=== PATIENT | male | born 1960 | race Asian ===

== ENCOUNTER 2017-07-11 19:04 | Inpatient (IN) | payer MEDICAID ==
--- NOTE | 2017-07-11 19:40 | ED Physician Chart ---
ED Chief Complaint/HPI - Patient Information Date Seen:: 07/11/17 Time Seen:: 19:35 Chief Complaint:: Pneumonia, leukocytosis History of Present Illness:: 56 yo male who was on ventilator via tracheostomy. He was a SNF resident. A CXR at [facility] showed bilateral infiltrate. Elevated WBC 19.5 indicated likely pneumonia. The patient was brought from [facility] to ER for further evaluation. He was awake, alert, and following commands. Allergies:: Allergies Allergy/AdvReac Type Severity Reaction Status Date / Time No Known Allergies Allergy Verified 07/11/17 19:32 Vitals:: Vital Signs - 8 hr 07/11/17 19:18 HR 117 O2 Sat % 97 ED Review of Systems - Review of Systems General/Constitutional: Fever, Weakness, Other (bed) Skin: No skin lesions Head: No headache Eyes: No pain ENT: No earache Neck: No neck pain Cardio Vascular: No chest pain Pulmonary: SOB GI: No nausea, No vomiting Musculoskeletal: Bone or joint pain ED Past Medical History - Past Medical History Past Medical History: PUD/GERD, Other (respiratory failure, cirrhosis, anemia, dysphagia, atrial fibrillation) Social History: Non Smoker, No Alcohol, No Drug Use Surgical History: PEG/GTube Family Medical History - Family Member Mother History Unknown: Yes ED Physical Exam - Physical Examination General/Constitutional: Awake, Alert Other Gen/Cons comments:: Follow commands Head: Atraumatic Eyes: PERRL Skin: No ecchymosis ENMT: External ears, nose nl Neck: Nontender Other Neck comments:: Tracheostomy intact Other Respiratory comments:: G/L rhonchi Cardio Vascular: RRR, No murmur, gallop, rubs GI: No tenderness/rebounding/guarding Extremities: No edema Neuro/Psych: Alert/oriented ED Labs/Radiology/EKG Results - Radiology Results Results: CXR: b/l lung multiple infiltrates ED Assessment - Assessment General Assessment: Pneumonia Leukocytosis Tracheostomy on ventilation Anemia Metabolic alkalosis, posthypercapnia Assessment/Comments:: CBC, CMP, ABG CXR, EKG Zosyn Ventilation rate increase Admit to ICU ED Septic Shock - . Is Septic Shock (SBP<90, OR Lactate>4 mmol\L) present?: No - <6hrs of presentation: Vital Signs: Vital Signs - 8 hr 03/11/18 19:18 HR 117 O2 Sat % 97 ED Reassessment (Disposition) - Reassessment Reassessment Condition:: Improved - Patient Disposition Discharge/Transfer:: Acute Care w/in this hosp Admitting Medical Physician:: Kimberly Chaudhry
[2017-07-11 19:55] LABS: BASOPHILE ABSOLUTE 0.2 Th/cumm (0-0.2); EOSINOPHILE ABSOLUTE 2.6 Th/cmm (0.1-0.4); HEMATOCRIT 30.5 % (41.0-60); HEMOGLOBIN 10.3 gm/dL (12-16); LYMPHOCYTE ABSOLUTE 1.2 Th/cmm (1.5-3.0); MANUAL DIFF REQUIRED? YES; MEAN CELL VOLUME 93.3 fl (80-99); MEAN CORPUSCULAR HEMOGLOBIN 31.5 pg (26.0-30.0); MEAN CORPUSCULAR HGB CONC 33.8 pg (28.0-36.0); MONOCYTE ABSOLUTE 0.7 Th/cmm (0.3-1.0); NEUTROPHILE ABSOLUTE 17.9 Th/cmm (1.8-8.0); PLATELET COUNT 237 Th/cmm (150-400); RED BLOOD COUNT 3.27 Mil/cmm (4.30-5.70); RED CELL DISTRIBUTION WIDTH 22.4 % (11.5-20.0)
[2017-07-11 20:16] LABS: ALB/GLOB RATIO 0.4 (1.0-1.8); ALBUMIN 2.2 gm/dL (4.2-5.5); ALKALINE PHOSPHATASE 171 U/L (34-104); ANION GAP 4.4 (7.0-16.0); BILIRUBIN,TOTAL 0.9 mg/dL (0.3-1.0); BUN - UREA NITROGEN 15 mg/dL (7-25); CALCIUM SERUM 9.5 mg/dL (8.6-10.3); CHLORIDE 98 mEq/L (98-107); CREATININE - SERUM 0.5 mg/dL (0.7-1.3); GFR AFRICAN-AMERICAN > 60.0 ml/min (>90); GFR NON AFRICAN-AMERICAN > 60.0 ml/min; GLUCOSE 98 mg/dL (70-105); POTASSIUM SERUM 4.4 mEq/L (3.5-5.1); SGOT 45 U/L (13-39); SGPT/ALT 20 U/L (7-52); SODIUM SERUM 130 mEq/L (136-145); TOTAL PROTEIN,SERUM 8.4 gm/dL (6.0-8.3); WHITE BLOOD COUNT 22.6 Th/cmm (4.8-10.8)
[2017-07-11 21:05] LABS: ALLEN TEST positive
[2017-07-11 21:29] LABS: BAND NEUTROPHILE 6 % (0-10); BASOPHIL 0 % (0-3); EOSINOPHIL 12 % (0-5); LYMPHOCYTE 5 % (20-50); MONOCYTE 3 % (2-10); NEUTROPHILS 74 % (40-80); PLATELET ESTIMATE ADEQUATE (NORMAL); PLATELET MORPHOLOGY NORMAL (NORMAL); TOTAL CELLS COUNTED 100
[2017-07-11 21:30] LABS: ANISOCYTOSIS 1+
[2017-07-11] MEDS ORDERED: Piperacillin Sodium/Tazobact 3.375 gm Vial IV ONE (21:34)
[2017-07-12] MEDS ORDERED: Piperacillin Sodium/Tazobact 3.375 gm Vial IV ONE ×2 (04:57→13:53)
[2017-07-12 05:26] LABS: ALB/GLOB RATIO 0.4 (1.0-1.8); ALBUMIN 2.2 gm/dL (4.2-5.5); ALKALINE PHOSPHATASE 163 U/L (34-104); ANION GAP 7.5 (7.0-16.0); BILIRUBIN,TOTAL 1.1 mg/dL (0.3-1.0); BUN - UREA NITROGEN 17 mg/dL (7-25); CALCIUM SERUM 9.8 mg/dL (8.6-10.3); CARBON DIOXIDE 30.8 mEq/L (21.0-31.0); CHLORIDE 96 mEq/L (98-107); CREATININE - SERUM 0.6 mg/dL (0.7-1.3); GFR AFRICAN-AMERICAN > 60.0 ml/min (>90); GFR NON AFRICAN-AMERICAN > 60.0 ml/min; GLUCOSE 90 mg/dL (70-105); POTASSIUM SERUM 4.3 mEq/L (3.5-5.1); SGOT 45 U/L (13-39); SGPT/ALT 19 U/L (7-52); SODIUM SERUM 130 mEq/L (136-145); TOTAL PROTEIN,SERUM 8.3 gm/dL (6.0-8.3)
[2017-07-12 06:12] LABS: pH 7.46 (7.35-7.45)
[2017-07-12 06:13] LABS: ALLEN TEST Positive; pH 7.45 (7.35-7.45)
--- NOTE | 2017-07-12 08:30 | Diagnostic Imaging Report ---
CHEST X-RAY: AP view INDICATION: Cough COMPARISON: None FINDINGS: Tracheostomy tube is noted. Congestive changes and bilateral interstitial infiltrates are seen with small effusions. Mild cardiomegaly is noted. Degenerative changes spine are noted. Postsurgical changes of the left upper quadrant are noted with gastrostomy tube also noted. IMPRESSION: Congestive change and interstitial infiltrates and small effusions. Mild cardiomegaly.
[2017-07-12 08:38] LABS: % BASOPHILS 0.1 % (0.0-2.0); % EOSINOPHILS 5.7 % (0.0-5.0); % MONOCYTES 5.1 % (2.0-10.0); % NEUTROPHILS 80.1 % (40.0-80.0); EOSINOPHILE ABSOLUTE 1.1 Th/cmm (0.1-0.4); HEMATOCRIT 28.9 % (41.0-60); HEMOGLOBIN 9.9 gm/dL (12-16); LYMPHOCYTE ABSOLUTE 1.7 Th/cmm (1.5-3.0); MEAN CELL VOLUME 95.7 fl (80-99); MEAN CORPUSCULAR HEMOGLOBIN 32.8 pg (26.0-30.0); MEAN CORPUSCULAR HGB CONC 34.3 pg (28.0-36.0); MEAN PLATELET VOLUME 9.2 fl; NEUTROPHILE ABSOLUTE 14.9 Th/cmm (1.8-8.0); RED BLOOD COUNT 3.02 Mil/cmm (4.30-5.70); RED CELL DISTRIBUTION WIDTH 22.4 % (11.5-20.0)
[2017-07-12 08:39] LABS: PLATELET COUNT 140 Th/cmm (150-400); WHITE BLOOD COUNT 18.7 Th/cmm (4.8-10.8)
[2017-07-12] MEDS ORDERED: VANCOMYCIN IV SCH (13:44)
[2017-07-12] MEDS ORDERED: SOD CHLORIDE IV SCH (13:44)
[2017-07-12] MEDS ORDERED: [UNRECOGNIZED DRUG - OTHER] IV SCH (13:44)
[2017-07-12] MEDS ORDERED: Non-Formulary Item 1 EA (Amino Acids/Protein Hydrolys [Pro-Stat Sugar Free Liquid] 30 ML) GT SCH (13:44)
[2017-07-12] MEDS ORDERED: DARBEPOETIN ALFA IN POLYSORBAT SQ SCH (13:44)
[2017-07-12] MEDS ORDERED: Non-Formulary Item 1 EA (Levalbuterol Hcl [Xopenex] 0.63 MG) IH SCH (13:44)
[2017-07-12 15:15] VITALS: BP 105/63
--- NOTE | 2017-07-12 15:22 | Infectious Disease Prog Note ---
Infectious Disease Subjective - Review of Systems Service Date: 07/12/17 Subjective: Patient is brought to the ICU for worsening pneumonia. Infectious Disease Objective - Results Result Diagrams: 07/12/17 04:20 07/12/17 04:20 Recent Labs: Laboratory Last Values WBC 18.7 Th/cmm (4.8-10.8) H 07/12/17 04:20 RBC 3.02 Mil/cmm (4.30-5.70) L 07/12/17 04:20 Hgb 9.9 gm/dL (12-16) L 07/12/17 04:20 Hct 28.9 % (41.0-60) L 07/12/17 04:20 MCV 95.7 fl (80-99) 07/12/17 04:20 MCH 32.8 pg (26.0-30.0) H 07/12/17 04:20 MCHC Differential 34.3 pg (28.0-36.0) 07/12/17 04:20 RDW 22.4 % (11.5-20.0) H 07/12/17 04:20 Plt Count 140 Th/cmm (150-400) L D 07/12/17 04:20 MPV 9.2 fl 07/12/17 04:20 Neutrophils % 80.1 % (40.0-80.0) H 07/12/17 04:20 Band Neutrophils % 6 % (0-10) 07/11/17 19:46 Lymphocytes % 9.0 % (20.0-50.0) L 07/12/17 04:20 Monocytes % 5.1 % (2.0-10.0) 07/12/17 04:20 Eosinophils % 5.7 % (0.0-5.0) H 07/12/17 04:20 Basophils % 0.1 % (0.0-2.0) 07/12/17 04:20 Neutrophils (Manual) 74 % (40-80) 07/11/17 19:46 Lymphocytes 5 % (20-50) L 07/11/17 19:46 Monocytes 3 % (2-10) 07/11/17 19:46 Eosinophils 12 % (0-5) H 07/11/17 19:46 Basophils 0 % (0-3) 07/11/17 19:46 Platelet Estimate ADEQUATE (NORMAL) 07/11/17 19:46 Platelet Morphology NORMAL (NORMAL) 07/11/17 19:46 Anisocytosis 1+ 07/11/17 19:46 RBC Morph Micro Appear ABNORMAL (NORMAL) 07/11/17 19:46 Specimen Source ARTERIAL 07/12/17 06:00 Sample Site Right Radial 07/12/17 06:00 pH 7.45 (7.35-7.45) 07/12/17 06:00 pCO2 50.0 mmHg (35.0-45.0) H 07/12/17 06:00 pO2 100.0 mmHg (80.0-100.0) 07/12/17 06:00 HCO3 32.2 mEq/L (20.0-26.0) H 07/12/17 06:00 Base Excess 9.3 mEq/L (-3.0-3.0) H 07/12/17 06:00 O2 Saturation 98.0 % (92.0-100.0) 07/12/17 06:00 Jose Test Positive 07/12/17 06:00 Vent Rate 24 07/12/17 06:00 Inspired O2 40 07/12/17 06:00 Tidal Volume NA 07/12/17 06:00 PEEP 5 07/12/17 06:00 Pressure (ins/psv/peep) 25 07/12/17 06:00 Critical Value SC 07/12/17 06:00 Sodium 130 mEq/L (136-145) L 07/12/17 04:20 Potassium 4.3 mEq/L (3.5-5.1) 07/12/17 04:20 Chloride 96 mEq/L (98-107) L 07/12/17 04:20 Carbon Dioxide 30.8 mEq/L (21.0-31.0) 07/12/17 04:20 Anion Gap 7.5 (7.0-16.0) 07/12/17 04:20 BUN 17 mg/dL (7-25) 07/12/17 04:20 Creatinine 0.6 mg/dL (0.7-1.3) L 07/12/17 04:20 Est GFR ( Amer) > 60.0 ml/min (>90) 07/12/17 04:20 Est GFR (Non-Af Amer) > 60.0 ml/min 07/12/17 04:20 BUN/Creatinine Ratio 28.3 07/12/17 04:20 Glucose 90 mg/dL (70-105) 07/12/17 04:20 Whole Bld Lactic Acid 1.00 mmol/L (0.60-1.99) 07/12/17 09:10 Calcium 9.8 mg/dL (8.6-10.3) 07/12/17 04:20 Total Bilirubin 1.1 mg/dL (0.3-1.0) H 07/12/17 04:20 AST 45 U/L (13-39) H 07/12/17 04:20 ALT 19 U/L (7-52) 07/12/17 04:20 Alkaline Phosphatase 163 U/L (34-104) H 07/12/17 04:20 Total Protein 8.3 gm/dL (6.0-8.3) 07/12/17 04:20 Albumin 2.2 gm/dL (4.2-5.5) L 07/12/17 04:20 Globulin 6.1 gm/dL 07/12/17 04:20 Albumin/Globulin Ratio 0.4 (1.0-1.8) L 07/12/17 04:20 - Physical Exam Vitals and I&O: Vital Signs Temp 98.9 F 07/12/17 13:00 Pulse 85 07/12/17 14:02 Resp 22 07/12/17 14:02 BP 105/63 07/12/17 15:15 Pulse Ox 100 07/12/17 13:10 Intake & Output 07/11/17 07/12/17 07/12/17 18:59 06:59 18:59 Intake Total 50 Balance 50 Intake: Intake, IV Amount 50 Piperacillin Sodium/ 50 Tazobact 3.375 gm In Sodium Chloride 0.9% 50 ml @ 100 mls/hr IV Q8H [facility] Rx#:[id number] Active Medications: Current Medications Acetaminophen (Tylenol 650mg/20.3ml Suspension) 640 mg GT Q4H PRN PRN Reason: Pain or Fever >101 Stop: 09/10/17 13:43 Artificial Tears (Artificial Tears Ophth Soln) 1 drop EACH EYE Q4HR MANDA Stop: 09/10/17 15:59 Ascorbic Acid (Vitamin C) 500 mg GT DAILY MANDA Stop: 09/10/17 14:59 Chlorhexidine Gluconate (Peridex) 15 ml MM 0800,2000 MANDA Stop: 09/10/17 19:59 Digoxin (Lanoxin) 0.125 mg GT MWF MANDA Stop: 09/10/17 14:59 Folic Acid (Folate) 1 mg GT DAILY MANDA Stop: 09/10/17 14:59 Piperacillin Sod/Tazobactam (Sod 3.375 gm/ Sodium Chloride) 50 mls @ 100 mls/ hr IV Q8H MANDA Stop: 09/10/17 15:59 Vancomycin HCl 0.75 gm/ Sodium (Chloride) 250 mls @ 165 mls/hr IV Q12H MANDA Stop: 09/10/17 16:59 Lorazepam (Ativan) 0.5 mg GT Q4H PRN; Protocol PRN Reason: Anxiety Stop: 09/10/17 13:43 Metoclopramide HCl (Reglan) 5 mg GT DAILY MANDA Stop: 09/10/17 14:59 Miscellaneous (Vancomycin Iv Per Pharmacy) 1 ea PRN PRN PRN Reason: PROTOCOL Stop: 09/09/17 22:02 Miscellaneous (Amino Acids/Protein Hydrolys [Pro-Stat Sugar Free Liquid]) 30 ml GT BID MANDA Stop: 09/10/17 13:43 Miscellaneous (Darbepoetin Arsenio In Polysorbat [Aranesp]) 0.04 mg SQ QFRI MANDA Stop: 09/10/17 13:43 Miscellaneous (Levalbuterol Hcl [Xopenex]) 0.63 mg IH Q6HR MANDA Stop: 09/10/17 13:43 Morphine Sulfate (Morphine) 15 mg GT TID MANDA Stop: 09/10/17 13:59 Multivitamins/Vitamin C (Theragran) 1 tab GT DAILY MANDA Stop: 09/10/17 14:59 Ondansetron HCl (Zofran Odt) 4 mg SL Q6H PRN PRN Reason: Nausea Stop: 09/10/17 13:43 Pantoprazole Sodium (Protonix) 30 mg GT BIDAC MANDA Stop: 09/10/17 16:29 Senna (Senna) 8.6 mg GT HS MANDA Stop: 09/10/17 20:59 Thiamine HCl (Vitamin B1) 100 mg GT DAILY MANDA Stop: 09/10/17 14:59 Zinc Sulfate (Zinc Sulfate) 220 mg GT DAILY MANDA Stop: 09/10/17 14:59 General: no acute distress, cachectic HEENT: atraumatic, normocephalic, PERRLA, EOMI Neck: supple, no thyromegaly Cardiovascular: S1S2, regular Lungs: clear to percussion, rhonchi Abdomen: soft, no tender, no distended Extremities: no cyanosis, no clubbing, no edema Neurological: awake, alert, oriented Skin: no other (sacral dry wound no erythema stage 2. left leg wound) Infectious Disease Assmt/Plan - Assessment Assessment: Impression: 1. Diarrhea. 2. Pneumonia. 3. Leukocytosis. 4. Cirrhosis. 5. Afib, currently NSR. 6. h/o alcohol abuse. 7. Protein calorie malnutrition. 8. decubitus, sacral. There is no sign of infection,. 9. left leg decubitus ulcer. - Plan Plan: Will continue vanco IV and Zosyn. Check stool for C diff. Blood cs. Sputum cs. UA urine cs.
[2017-07-12] MEDS: Polyvinyl Alcohol Ophth Soln 15 mL Bottle EACH EYE SCH ×2 (16:00→22:50)
[2017-07-12] MEDS ORDERED: Pantoprazole 40 mg/Packet GT SCH (16:30)
[2017-07-12] MEDS: Morphine 10 mg/5 ml 5mL UDC GT SCH ×2 (18:13→21:14)
[2017-07-12] MEDS: Multivitamin Tab GT SCH (18:15)
[2017-07-12] MEDS ORDERED: VTE Chemical Prophylaxis Screen/Admission MC PRN (19:01)
[2017-07-12] MEDS: Chlorhexidine Gluconate 0.12% 15mL Mouthwash MM SCH (19:50)
--- NOTE | 2017-07-13 00:21 | Consultation ---
DATE OF CONSULTATION: 07/12/2017 INFECTIOUS DISEASE CONSULTATION REFERRING PHYSICIAN: Qamar Chaudhry MD. REASON FOR CONSULTATION: Leukocytosis and pneumonia. HISTORY OF PRESENT ILLNESS: The patient is a 56-year-old male with a past medical history of ventilator dependence, status post tracheostomy, status post PEG was admitted to [facility]. Afterwards, the patient was on ventilator, requiring continued care and IV antibiotic. So, the patient was transferred to [facility]. The patient had a prolonged stay at [facility] again. However, he was stabilized and transferred to [facility] on 07/01/2017. He was receiving levofloxacin. At the facility, the patient's WBC count is 90,500 with chest x-ray showed bilateral infiltrate with possibility of pneumonia. So, the patient was transferred to [facility] for further care. On initial evaluation, the patient's temperature was 99.8 degree Fahrenheit, which went up to 100.5 degrees Fahrenheit. The patient's blood pressure was also fluctuating and it went down to 96/70 today. Infectious Disease consultation was called for further antibiotic management. Meanwhile, the patient is receiving vancomycin and Zosyn. The patient also developed watery diarrhea. PAST MEDICAL HISTORY: Includes as mentioned above, alcohol abuse, cirrhosis, anemia, dysphagia, G-tube placement, atrial fibrillation, currently in normal sinus rhythm; respiratory failure, on ventilator; liver cirrhosis and pneumonias. The patient also harboring multidrug resistant organisms, which were treated at [facility]. ALLERGIES: NKDA. MEDICATIONS: As per medication reconciliation sheet. The patient was receiving Levaquin at [facility]. Levaquin was changed to vancomycin and Zosyn. FAMILY HISTORY: Noncontributory. SOCIAL HISTORY: The patient had a prolonged stay in the hospital and bedridden at this time. He has no history of smoking; although, the patient has history of chronic alcohol abuse. REVIEW OF SYSTEMS: GENERAL: The patient has low-grade fevers. The patient is on a ventilator. No chills. The patient has generalized weakness. HEENT: The patient denies any diplopia, photophobia, or sore throat. RESPIRATORY: The patient has been on ventilator for a long time. CARDIOVASCULAR: The patient has no chest pain and no palpitation. GASTROINTESTINAL: The patient has no nausea and no vomiting. The patient has watery diarrhea. No constipation. No abdominal pain. GENITOURINARY: Incontinence. CENTRAL NERVOUS SYSTEM: No headache, no dizziness, and no focal weakness. PHYSICAL EXAMINATION: GENERAL: The patient is very cachectic, not in acute distress. VITAL SIGNS: Shows temperature is 98.2, T-max 100.5 degrees Fahrenheit, pulse 98, respirations 28, and blood pressure 105/63. GENERAL: The patient is comfortable, lying in bed, not in acute distress. HEENT: Head is normocephalic and atraumatic. The patient has ____. Oral cavity: Moist and pink tongue. Eyes: No pressure pallor, no icterus. Pupils: PERRLA, EOMI. NECK: Trach site is clear. The patient has significant amount of endotracheal secretion present. CHEST: Bilateral breath sounds. Occasional rhonchi present. HEART: S1, S2 within normal limits. Regular rhythm. No murmur or gallop. ABDOMEN: Soft, nontender, and nondistended. Bowel sounds present. The patient has G-tube in epigastric area. EXTREMITIES: No cyanosis, no clubbing, and no edema. NEUROLOGICAL: Alert, awake, and follows the command. SKIN: The patient has a stage 2 sacral decubitus ulcer in coccyx area, small without any surrounding erythema, discharge, or induration. The patient also has small wound dry in left leg posteriorly. LABORATORY DATA: Current lab shows WBC count is 18,700, hemoglobin 9.9, hematocrit 28.8, platelets are 140,000, and neutrophils 80%. Sodium is 130, potassium 4.3, chloride 96, bicarbonate is 31, BUN is 17, creatinine 0.6, and glucose is 90. Lactic acid was 1. DIAGNOSTIC DATA: Chest x-ray shows congestive changes, interstitial infiltrate, small effusion, and mild cardiomegaly. IMPRESSION: 1. Leukocytosis. 2. Pneumonia. 3. Diarrhea without Clostridium difficile colitis. 4. Cirrhosis. 5. Atrial fibrillation, currently in normal sinus rhythm. Receiving Digoxin. 6. History of alcohol abuse. 7. Protein-calorie malnutrition. 8. Sacral decubitus ulcer with no sign of infection. 9. The left leg decubitus ulcer without sign of any infection. RECOMMENDATION AND PLAN: We will continue vancomycin and Zosyn. Check stool for C. diff. Check blood cultures, sputum culture, urinalysis, and urine culture. Thank you, Dr. Chaudhry, for involving me in taking care of this patient. JOB# [id number]
[2017-07-13] MEDS: Albuterol Nebulizer 2.5mg/3mL HHN SCH ×4 (01:09→18:48)
[2017-07-13] MEDS: Ipratropium Neb 0.5 mg/2.5 mL UD HHN SCH ×4 (01:09→18:48)
[2017-07-13] MEDS: Polyvinyl Alcohol Ophth Soln 15 mL Bottle EACH EYE SCH ×5 (01:22→16:09)
[2017-07-13] MEDS: Pantoprazole 40 mg/Packet GT SCH ×2 (07:30→16:24)
--- NOTE | 2017-07-13 07:51 | Consultation ---
DATE OF CONSULTATION: 07/12/2017 REFERRING PHYSICIAN: Dr. Chaudhry. Thank you very much for this consultation. HISTORY OF PRESENT ILLNESS: This is a 56-year-old male known to me from his admission in [facility], history of liver cirrhosis, respiratory failure, history of pneumonia, effusion, chest tube on the right side. The patient presented with congestion and fever, was admitted for further treatment and management. The patient seems to have some significant amount of secretions and fever of 100.5. The patient is awake, alert, has been on multiple medications and treated with multiple antibiotics, sepsis before. PAST MEDICAL HISTORY: As above. SOCIAL HISTORY: Available. PHYSICAL EXAMINATION: GENERAL: Awake, not in acute distress, agitated. VITAL SIGNS: T-max 100.4, temperature 99.4, pulse 108, respirations 26-30, blood pressure is 160/68, saturation 99%. HEENT: Atraumatic, normocephalic. Pupils react to light and accommodation. Ears, nose and throat are normal. NECK: Supple. No JVD. CHEST: There is rhonchi bilaterally, no wheezing. HEART: Regular rate and rhythm. ABDOMEN: Soft. EXTREMITIES: No edema. LABORATORY DATA: WBC is 18.7, hemoglobin 9.9, hematocrit 28.9, platelets 140. ABGs: pH 7.45, pCO2 of 50, pO2 100, bicarbonate 32, saturation 98%. Sodium 138, potassium 4.3, BUN 17, creatinine 0.6. Chest x-ray, bibasilar infiltrate suggestive there is a tube in place. IMPRESSION: 1. Respiratory failure. 2. Pneumonia. 3. Weakness. 4. Sepsis. 5. Liver cirrhosis. PLAN: 1. Ventilator support. 2. Nebulized treatment. 3. Pulmonary toilet. 4. Follow up serum cultures and nebulizer treatment. Thank you very much for this consultation. We will follow the patient with you. PSYCHIATRIC# [id number]
[2017-07-13] MEDS: Chlorhexidine Gluconate 0.12% 15mL Mouthwash MM SCH ×2 (08:00→20:45)
[2017-07-13] MEDS: Morphine 10 mg/5 ml 5mL UDC GT SCH ×3 (09:15→20:57)
[2017-07-13] MEDS: Multivitamin Tab GT SCH (09:50)
[2017-07-13] MEDS: D5-0.45NS 1,000 ML IV SCH (14:30)
[2017-07-13] MEDS ORDERED: Influenza Vaccine 0.5 mL Syr IM ONE (16:00)
[2017-07-13] MEDS ORDERED: Pneumococcal Vaccine 0.5 mL Vial IM ONE (16:00)
--- NOTE | 2017-07-13 16:12 | History and Physical ---
History of Present Illness - HPI Chief Complaint: PNEUMONIA, LEUKOCYTOSIS HPI: This is a 56 year old male who is a retirement resident who had a recent chest xray shows bilateral infiltrates and patient had a wbc of 19.5. . Vital Signs: Last Vital Signs Temp 100.4 F 07/13/17 12:00 Pulse 108 07/13/17 15:25 Resp 35 07/13/17 13:00 BP 106/56 07/13/17 13:00 Pulse Ox 100 07/13/17 15:25 Past Medical History Other History: etoh cirrhosis anemia dysphagia afib respiratory failure vdrf liver cirrhosis pna - Past Surgical History Past Surgical History: Other (trach/peg) Family Medical History - Family Member Mother History Unknown: Yes Social History Smoke: No Alcohol: None Drugs: None Lives: Snf - Medications Home Medications: Home Medication Medication Instructions Recorded Type Acetaminophen [Tylenol 640 mg GT Q4HR PRN 07/11/17 History 650mg/20.3mL Suspension] Amino Acids/Protein Hydrolys 30 ml GT BID 07/11/17 History [Pro-Stat Sugar Free 887 ml] Ascorbic Acid [Vitamin C] 500 mg GT DAILY 07/11/17 History Darbepoetin Arsenio in Polysorbat 0.04 mg SQ QFRI 07/11/17 History [Aranesp] Digoxin [Lanoxin] 125 mcg GT MWF 07/11/17 History Folic Acid [Folate*] 1 mg GT DAILY 07/11/17 History Lansoprazole [Prevacid Solutab] 30 mg GT BID 07/11/17 History Levalbuterol HCl [Xopenex] 0.63 mg IH Q3HR PRN 07/11/17 History Levalbuterol HCl [Xopenex] 0.63 mg IH Q6HR 07/11/17 History Lorazepam [Ativan] 0.5 mg GT Q4HR PRN 07/11/17 History Metoclopramide HCl 5 mg GT DAILY 07/11/17 History Mineral Oil/Petrolatum,White 3.5 gm EACH EYE Q4HR 07/11/17 History [Lubricant Eye Ointment] Morphine [Morphine*] 15 mg GT TID 07/11/17 History Multivitamin [Theragran] 1 tab GT DAILY 07/11/17 History Ondansetron HCl [Zofran*] 4 mg GT Q6HR PRN 07/11/17 History Sennosides A and B [Senna] 2 tab GT HS 07/11/17 History Thiamine [Vitamin B1] 100 mg GT DAILY 07/11/17 History Vancomycin/0.9 % Sod Chloride 1 gm IV DAILY 07/11/17 History [Vanco 1 Gram/250 ml-0.9% NaCl] Zinc Sulfate 220 mg GT DAILY 07/11/17 History - Allergies Allergies/Adverse Reactions: Allergies Allergy/AdvReac Type Severity Reaction Status Date / Time No Known Allergies Allergy Verified 07/11/17 19:32 Review of Systems - Review of Systems Constitutional: Report: Weakness Eyes: Report: No Significant Respiratory: Report: Cough Cardiovascular: Report: No Significant Neurological: Report: Weakness Physical Exam - Physical Exam HEENT: Report: Ears Nose Throat within normal limits Neck: Report: Within normal limits Cardiovascular Systems: Report: +s1/s2 noted Respiratory: Report: Rhonchi Abdomen: Report: Non-tender to palpation, Bowel Sounds are within normal limits Skin: Report: Warm, Dry Neuro/Psych: Report: Mood affect is within normal limits - Lab Results All Lab Results last 24 hours: Laboratory Results - last 24 hr 07/13/17 10:00 Stool Leukocyte NO WBC SEEN - Assessment Assessment: Pneumonia Leukocytosis Diarrhea hx cirrhosis Protein calorie malnutrition sacral ulcer left leg ulcer - Plan Plan: icu monitoring pulmo/ID consult follow up labs in am continue current plan of care
[2017-07-14] MEDS: Albuterol Nebulizer 2.5mg/3mL HHN SCH ×4 (00:27→19:19)
[2017-07-14] MEDS: Ipratropium Neb 0.5 mg/2.5 mL UD HHN SCH ×4 (00:28→19:19)
[2017-07-14 04:32] LABS: HEMATOCRIT 27.7 % (41.0-60); HEMOGLOBIN 9.1 gm/dL (12-16); MEAN CELL VOLUME 95.3 fl (80-99); MEAN CORPUSCULAR HEMOGLOBIN 31.1 pg (26.0-30.0); MEAN CORPUSCULAR HGB CONC 32.7 pg (28.0-36.0); MEAN PLATELET VOLUME 7.8 fl; PLATELET COUNT 197 Th/cmm (150-400); RED BLOOD COUNT 2.91 Mil/cmm (4.30-5.70); RED CELL DISTRIBUTION WIDTH 21.5 % (11.5-20.0)
[2017-07-14 05:03] LABS: WHITE BLOOD COUNT 13.2 Th/cmm (4.8-10.8)
[2017-07-14 05:04] LABS: MANUAL DIFF REQUIRED? YES
[2017-07-14 05:11] LABS: ANION GAP 3.7 (7.0-16.0); BUN - UREA NITROGEN 17 mg/dL (7-25); CALCIUM SERUM 9.7 mg/dL (8.6-10.3); CARBON DIOXIDE 25.6 mEq/L (21.0-31.0); CHLORIDE 104 mEq/L (98-107); CREATININE - SERUM 0.7 mg/dL (0.7-1.3); GFR AFRICAN-AMERICAN > 60.0 ml/min (>90); GFR NON AFRICAN-AMERICAN > 60.0 ml/min; GLUCOSE 136 mg/dL (70-105); POTASSIUM SERUM 3.3 mEq/L (3.5-5.1); SODIUM SERUM 130 mEq/L (136-145)
[2017-07-14 05:24] LABS: EOSINOPHIL 11 % (0-5); LYMPHOCYTE 15 % (20-50); MONOCYTE 1 % (2-10); NEUTROPHILS 73 % (40-80); PLATELET ESTIMATE ADEQUATE (NORMAL); TOTAL CELLS COUNTED 100
[2017-07-14] MEDS: Pantoprazole 40 mg/Packet GT SCH ×2 (06:35→16:28)
[2017-07-14] MEDS: D5-0.45NS 1,000 ML IV SCH ×2 (06:35→21:00)
[2017-07-14] MEDS: Chlorhexidine Gluconate 0.12% 15mL Mouthwash MM SCH ×2 (08:34→20:50)
[2017-07-14] MEDS: Polyvinyl Alcohol Ophth Soln 15 mL Bottle EACH EYE SCH ×5 (08:49→20:48)
[2017-07-14] MEDS: Multivitamin Tab GT SCH (09:00)
[2017-07-14] MEDS: Morphine 10 mg/5 ml 5mL UDC GT SCH ×3 (09:56→20:48)
[2017-07-14] MEDS ORDERED: Potassium Chloride Elixir 20 mEq /15 mL UDC GT ONE (14:34)
--- NOTE | 2017-07-14 16:58 | Internal Medicine Prog Note ---
Internal Medicine Objective - Results Result Diagrams: 07/14/17 04:26 07/14/17 04:26 Recent Labs: Laboratory Last Values WBC 13.2 Th/cmm (4.8-10.8) H 07/14/17 04:26 RBC 2.91 Mil/cmm (4.30-5.70) L 07/14/17 04:26 Hgb 9.1 gm/dL (12-16) L 07/14/17 04:26 Hct 27.7 % (41.0-60) L 07/14/17 04:26 MCV 95.3 fl (80-99) 07/14/17 04:26 MCH 31.1 pg (26.0-30.0) H 07/14/17 04:26 MCHC Differential 32.7 pg (28.0-36.0) 07/14/17 04:26 RDW 21.5 % (11.5-20.0) H 07/14/17 04:26 Plt Count 197 Th/cmm (150-400) 07/14/17 04:26 MPV 7.8 fl 07/14/17 04:26 Neutrophils % 80.1 % (40.0-80.0) H 07/12/17 04:20 Band Neutrophils % 6 % (0-10) 07/11/17 19:46 Lymphocytes % 9.0 % (20.0-50.0) L 07/12/17 04:20 Monocytes % 5.1 % (2.0-10.0) 07/12/17 04:20 Eosinophils % 5.7 % (0.0-5.0) H 07/12/17 04:20 Basophils % 0.1 % (0.0-2.0) 07/12/17 04:20 Neutrophils (Manual) 73 % (40-80) 07/14/17 04:26 Lymphocytes 15 % (20-50) L 07/14/17 04:26 Monocytes 1 % (2-10) L 07/14/17 04:26 Eosinophils 11 % (0-5) H 07/14/17 04:26 Basophils 0 % (0-3) 07/11/17 19:46 Platelet Estimate ADEQUATE (NORMAL) 07/14/17 04:26 Platelet Morphology NORMAL (NORMAL) 07/11/17 19:46 Anisocytosis 1+ 07/11/17 19:46 RBC Morph Micro Appear ABNORMAL (NORMAL) 07/11/17 19:46 Specimen Source ARTERIAL 07/12/17 06:00 Sample Site Right Radial 07/12/17 06:00 pH 7.45 (7.35-7.45) 07/12/17 06:00 pCO2 50.0 mmHg (35.0-45.0) H 07/12/17 06:00 pO2 100.0 mmHg (80.0-100.0) 07/12/17 06:00 HCO3 32.2 mEq/L (20.0-26.0) H 07/12/17 06:00 Base Excess 9.3 mEq/L (-3.0-3.0) H 07/12/17 06:00 O2 Saturation 98.0 % (92.0-100.0) 07/12/17 06:00 Jose Test Positive 07/12/17 06:00 Vent Rate 24 07/12/17 06:00 Inspired O2 40 07/12/17 06:00 Tidal Volume NA 07/12/17 06:00 PEEP 5 07/12/17 06:00 Pressure (ins/psv/peep) 25 07/12/17 06:00 Critical Value SC 07/12/17 06:00 Sodium 130 mEq/L (136-145) L 07/14/17 04:26 Potassium 3.3 mEq/L (3.5-5.1) L 07/14/17 04:26 Chloride 104 mEq/L (98-107) 07/14/17 04:26 Carbon Dioxide 25.6 mEq/L (21.0-31.0) 07/14/17 04:26 Anion Gap 3.7 (7.0-16.0) L 07/14/17 04:26 BUN 17 mg/dL (7-25) 07/14/17 04:26 Creatinine 0.7 mg/dL (0.7-1.3) 07/14/17 04:26 Est GFR ( Amer) > 60.0 ml/min (>90) 07/14/17 04:26 Est GFR (Non-Af Amer) > 60.0 ml/min 07/14/17 04:26 BUN/Creatinine Ratio 24.3 07/14/17 04:26 Glucose 136 mg/dL (70-105) H 07/14/17 04:26 Whole Bld Lactic Acid 1.00 mmol/L (0.60-1.99) 07/12/17 09:10 Calcium 9.7 mg/dL (8.6-10.3) 07/14/17 04:26 Total Bilirubin 1.1 mg/dL (0.3-1.0) H 07/12/17 04:20 AST 45 U/L (13-39) H 07/12/17 04:20 ALT 19 U/L (7-52) 07/12/17 04:20 Alkaline Phosphatase 163 U/L (34-104) H 07/12/17 04:20 Total Protein 8.3 gm/dL (6.0-8.3) 07/12/17 04:20 Albumin 2.2 gm/dL (4.2-5.5) L 07/12/17 04:20 Globulin 6.1 gm/dL 07/12/17 04:20 Albumin/Globulin Ratio 0.4 (1.0-1.8) L 07/12/17 04:20 Stool Leukocyte NO WBC SEEN 07/13/17 10:00 Vancomycin Trough 24.8 ug/mL (10-20) H 07/14/17 04:26 - Physical Exam Vitals and I&O: Vital Signs Temp 97.6 F 07/14/17 12:00 Pulse 95 07/14/17 14:01 Resp 12 07/14/17 13:00 BP 106/59 07/14/17 13:00 Pulse Ox 100 07/14/17 14:01 Intake & Output 07/13/17 07/14/17 07/14/17 18:59 06:59 18:59 Intake Total 710 1750 350 Output Total 600 900 Balance 110 850 350 Weight (lbs) 44.452 kg 44.996 kg Intake: Intake, IV Amount 350 1000 350 D5-0.45NS 1,000 ml @ 75 1000 mls/hr IV .[id number] [facility] Rx #:[id number] Piperacillin Sodium/ 100 100 Tazobact 3.375 gm In Sodium Chloride 0.9% 50 ml @ 100 mls/hr IV Q8H [facility] Rx#:[id number] Vancomycin HCl 0.75 gm In 250 250 Sodium Chloride 0.9% 250 ml @ 165 mls/hr IV Q12H [facility] Rx#:[id number] Oral 0 Tube Feeding 360 750 Output: Urine 500 400 Stool 100 500 Other: # Voids 1 Stool Characteristics Liquid Liquid Liquid Mucoid Mucoid Green Green Green Active Medications: Current Medications Acetaminophen (Tylenol 650mg/20.3ml Suspension) 640 mg GT Q4H PRN PRN Reason: Pain or Fever >101 Stop: 09/10/17 13:43 Last Admin: 07/13/17 09:50 Dose: 640 mg Albuterol Sulfate (Albuterol 2.5mg/3ml Neb Ud) 1.25 mg HHN Q6HRT [facility] Stop: 09/11/17 00:59 Last Admin: 07/14/17 14:00 Dose: 1.25 mg Artificial Tears (Artificial Tears Ophth Soln) 1 drop EACH EYE Q4HR [facility] Stop: 09/10/17 15:59 Last Admin: 07/14/17 16:26 Dose: 1 drop Ascorbic Acid (Vitamin C) 500 mg GT DAILY [facility] Stop: 09/10/17 14:59 Last Admin: 07/14/17 08:34 Dose: 500 mg Chlorhexidine Gluconate (Peridex) 15 ml MM 0800,1999 [facility] Stop: 09/10/17 19:59 Last Admin: 07/14/17 08:34 Dose: 15 ml Digoxin (Lanoxin) 0.125 mg GT MWF [facility] Stop: 09/10/17 14:59 Last Admin: 07/14/17 08:34 Dose: 0.125 mg Folic Acid (Folate) 1 mg GT DAILY [facility] Stop: 09/10/17 14:59 Last Admin: 07/14/17 08:34 Dose: 1 mg Heparin Sodium (Porcine) (Heparin) 5,000 units SUBQ Q12HR [facility] Stop: 09/10/17 20:59 Last Admin: 07/14/17 08:35 Dose: 5,000 units Hydroxyzine HCl (Atarax) 25 mg GT TID [facility] PRN Reason: Protocol Stop: 09/12/17 16:59 Last Admin: 07/14/17 16:28 Dose: 25 mg Piperacillin Sod/Tazobactam (Sod 3.375 gm/ Sodium Chloride) 50 mls @ 100 mls/ hr IV Q8H [facility] Stop: 09/10/17 15:59 Last Admin: 07/14/17 16:00 Dose: 100 mls/hr Dextrose/Sodium Chloride (D5-0.45ns) 1,000 mls @ 75 mls/hr IV .[id number] [facility] Stop: 09/11/17 14:14 Last Admin: 07/14/17 06:35 Dose: 75 mls/hr Vancomycin HCl 1 gm/ Sodium (Chloride) 250 mls @ 165 mls/hr IV Q24H [facility] Stop: 09/12/17 20:59 Ipratropium [place] (Atrovent Neb 0.5mg/2.5ml) 0.5 mg HHN Q6HRT [facility] Stop: 09/11/17 00:59 Last Admin: 07/14/17 14:00 Dose: 0.5 mg Lorazepam (Ativan) 0.5 mg GT Q4H PRN; Protocol PRN Reason: Anxiety Stop: 09/10/17 13:43 Last Admin: 07/14/17 00:04 Dose: 0.5 mg Metoclopramide HCl (Reglan) 5 mg GT DAILY [facility] Stop: 09/10/17 14:59 Last Admin: 07/14/17 08:34 Dose: 5 mg Miscellaneous (Vancomycin Iv Per Pharmacy) 1 [facility] PRN PRN PRN Reason: PROTOCOL Stop: 09/09/17 22:02 Miscellaneous (Darbepoetin Arsenio In Polysorbat [Aranesp]) 0.04 mg SQ QFRI [facility] Stop: 09/10/17 13:43 Miscellaneous (Vte Chemical Prophylaxis Screen/ Admission) 1 [facility] PRN PRN PRN Reason: PROTOCOL Stop: 09/10/17 19:00 Morphine Sulfate (Morphine) 15 mg GT TID [facility] Stop: 09/10/17 13:59 Last Admin: 07/14/17 14:00 Dose: 15 mg Multivitamins/Vitamin C (Theragran) 1 tab GT DAILY [facility] Stop: 09/10/17 14:59 Last Admin: 07/14/17 09:00 Dose: 1 tab Ondansetron HCl (Zofran Odt) 4 mg SL Q6H PRN PRN Reason: Nausea Stop: 09/10/17 13:43 Pantoprazole Sodium (Protonix) 40 mg GT BIDAC [facility] Stop: 09/10/17 16:29 Last Admin: 07/14/17 16:28 Dose: 40 mg Senna (Senna) 8.6 mg GT HS [facility] Stop: 09/10/17 20:59 Last Admin: 07/12/17 21:14 Dose: Not Given Thiamine HCl (Vitamin B1) 100 mg GT DAILY [facility] Stop: 09/10/17 14:59 Last Admin: 07/14/17 09:52 Dose: 100 mg Zinc Sulfate (Zinc Sulfate) 220 mg GT DAILY [facility] Stop: 09/10/17 14:59 Last Admin: 07/14/17 09:52 Dose: 220 mg - Procedures Procedures: Procedures Procedure Code Date RESPIRATORY VENTILATION, 24-96 CONSECUTIVE HOURS 0R2750A 07/12/17 Nutritional Asmnt/Malnutr-PDOC - Dietary Evaluation Malnutrition Findings (Please click <Entered> for more info): Nutritional Asmnt/Malnutrition Start: 07/13/17 14: 18 Text: Status: Complete Freq: Document 07/13/17 14:18 SUSAN (Rec: 07/13/17 14:25 SUSANG [email or web address]) Nutritional Asmnt/Malnutrition Patient General Information Nutritional Screening High Risk Consult Diagnosis PNA Pertinent Medical Hx/Surgical Hx PUD, GERD, respiratory failure , cirrhosis, anemia, dysphagia , a fib, PEG/GERD Subjective Information Consult received for ayaan < 12. Pt seen on vent via trach. Verified tube feeding running at 60ml/hr at this time. Spoke with RN, pt tolerated TF well. Pt had diarrhea from last night, c diff test ordered. Current Diet Order/ Nutrition Support FIbersource HN 60ml/hr x 20hr Pertinent Medications vit C, D5-0.45ns, folate, reglan, theragran, protonix, piperacillin, senna, vit B1, vancomycin, Zinc Pertinent Labs 07/12 Na 130, K 4.3, Cl 96, BUN 17, Cr 0.6, Glucose 90, Alb 2 .2 Nutritional Hx/Data Height 1.63 m Height (Calculated Centimeters) 162.6 Current Weight (lbs) 44.452 kg Weight (Calculated Kilograms) 44.5 Weight (Calculated Grams) 79819.1 [place] Body Weight 130 Body Mass Index (BMI) 16.8 Weight Status Underweight GI Symptoms GI Symptoms Diarrhea Last BM 07/13 Difficult in: None Skin Integrity/Comment: open wound to buttocks, ulceration to right calf, bruise to biletarl upper and lower extremities, discoloration to sacrum Estimated Nutritional Goals Calories/Kcals/Kg 23-27 Kcals Calculated 8051-9227 Protein g/k-1.2 Protein Calculated 54-65 Fluid: ml 1242-1458ml (1ml/kcal) Nutritional Problem 1. Problem Problem increased nutrition needs ( protein) Etiology increased metabolic demand for wound healing Signs/Symptoms: open wound, ulceration Intervention/Recommendation Comments 1. Continue with current TF regimen. It provides 1400kcal, 65g protein, 972ml free water , meeting 100% of nutritional needs 2. Monitor TF rate, tolerance, wt weekly, skin integrity and labs 3. F/U as moderate risk in 3-5 days, 03/31-04/02 Expected Outcomes/Goals Expected Outcomes/Goals 1. Pt to meet at least 75% of nutritional needs via nutrition support with tolerance 2. Wt stability, skin to remain intact, labs to approach WNL.
[2017-07-15] MEDS: Polyvinyl Alcohol Ophth Soln 15 mL Bottle EACH EYE SCH ×8 (00:35→23:09)
[2017-07-15] MEDS: Ipratropium Neb 0.5 mg/2.5 mL UD HHN SCH ×4 (01:40→19:27)
[2017-07-15] MEDS: Albuterol Nebulizer 2.5mg/3mL HHN SCH ×4 (01:40→19:27)
[2017-07-15] MEDS: Pantoprazole 40 mg/Packet GT SCH ×2 (07:30→17:00)
[2017-07-15] MEDS: Chlorhexidine Gluconate 0.12% 15mL Mouthwash MM SCH ×2 (08:30→21:03)
--- NOTE | 2017-07-15 08:53 | General Progress Note ---
Subjective - Review of Systems Events since last encounter: patient awake alert in no distress Objective - Results Result Diagrams: 07/14/17 04:26 07/14/17 04:26 Recent Labs: Laboratory Last Values WBC 13.2 Th/cmm (4.8-10.8) H 07/14/17 04:26 RBC 2.91 Mil/cmm (4.30-5.70) L 07/14/17 04:26 Hgb 9.1 gm/dL (12-16) L 07/14/17 04:26 Hct 27.7 % (41.0-60) L 07/14/17 04:26 MCV 95.3 fl (80-99) 07/14/17 04:26 MCH 31.1 pg (26.0-30.0) H 07/14/17 04:26 MCHC Differential 32.7 pg (28.0-36.0) 07/14/17 04:26 RDW 21.5 % (11.5-20.0) H 07/14/17 04:26 Plt Count 197 Th/cmm (150-400) 07/14/17 04:26 MPV 7.8 fl 07/14/17 04:26 Neutrophils % 80.1 % (40.0-80.0) H 07/12/17 04:20 Band Neutrophils % 6 % (0-10) 07/11/17 19:46 Lymphocytes % 9.0 % (20.0-50.0) L 07/12/17 04:20 Monocytes % 5.1 % (2.0-10.0) 07/12/17 04:20 Eosinophils % 5.7 % (0.0-5.0) H 07/12/17 04:20 Basophils % 0.1 % (0.0-2.0) 07/12/17 04:20 Neutrophils (Manual) 73 % (40-80) 07/14/17 04:26 Lymphocytes 15 % (20-50) L 07/14/17 04:26 Monocytes 1 % (2-10) L 07/14/17 04:26 Eosinophils 11 % (0-5) H 07/14/17 04:26 Basophils 0 % (0-3) 07/11/17 19:46 Platelet Estimate ADEQUATE (NORMAL) 07/14/17 04:26 Platelet Morphology NORMAL (NORMAL) 07/11/17 19:46 Anisocytosis 1+ 07/11/17 19:46 RBC Morph Micro Appear ABNORMAL (NORMAL) 07/11/17 19:46 Specimen Source ARTERIAL 07/12/17 06:00 Sample Site Right Radial 07/12/17 06:00 pH 7.45 (7.35-7.45) 07/12/17 06:00 pCO2 50.0 mmHg (35.0-45.0) H 07/12/17 06:00 pO2 100.0 mmHg (80.0-100.0) 07/12/17 06:00 HCO3 32.2 mEq/L (20.0-26.0) H 07/12/17 06:00 Base Excess 9.3 mEq/L (-3.0-3.0) H 07/12/17 06:00 O2 Saturation 98.0 % (92.0-100.0) 07/12/17 06:00 Jose Test Positive 07/12/17 06:00 Vent Rate 24 07/12/17 06:00 Inspired O2 40 07/12/17 06:00 Tidal Volume NA 07/12/17 06:00 PEEP 5 07/12/17 06:00 Pressure (ins/psv/peep) 25 07/12/17 06:00 Critical Value SC 07/12/17 06:00 Sodium 130 mEq/L (136-145) L 07/14/17 04:26 Potassium 3.3 mEq/L (3.5-5.1) L 07/14/17 04:26 Chloride 104 mEq/L (98-107) 07/14/17 04:26 Carbon Dioxide 25.6 mEq/L (21.0-31.0) 07/14/17 04:26 Anion Gap 3.7 (7.0-16.0) L 07/14/17 04:26 BUN 17 mg/dL (7-25) 07/14/17 04:26 Creatinine 0.7 mg/dL (0.7-1.3) 07/14/17 04:26 Est GFR ( Amer) > 60.0 ml/min (>90) 07/14/17 04:26 Est GFR (Non-Af Amer) > 60.0 ml/min 07/14/17 04:26 BUN/Creatinine Ratio 24.3 07/14/17 04:26 Glucose 136 mg/dL (70-105) H 07/14/17 04:26 Whole Bld Lactic Acid 1.00 mmol/L (0.60-1.99) 07/12/17 09:10 Calcium 9.7 mg/dL (8.6-10.3) 07/14/17 04:26 Total Bilirubin 1.1 mg/dL (0.3-1.0) H 07/12/17 04:20 AST 45 U/L (13-39) H 07/12/17 04:20 ALT 19 U/L (7-52) 07/12/17 04:20 Alkaline Phosphatase 163 U/L (34-104) H 07/12/17 04:20 Total Protein 8.3 gm/dL (6.0-8.3) 07/12/17 04:20 Albumin 2.2 gm/dL (4.2-5.5) L 07/12/17 04:20 Globulin 6.1 gm/dL 07/12/17 04:20 Albumin/Globulin Ratio 0.4 (1.0-1.8) L 07/12/17 04:20 Stool Leukocyte NO WBC SEEN 07/13/17 10:00 Vancomycin Trough 24.8 ug/mL (10-20) H 07/14/17 04:26 - Physical Exam Vitals and I&O: Vital Signs Temp 97.8 F 07/15/17 07:00 Pulse 107 07/15/17 07:45 Resp 22 07/15/17 07:00 BP 107/65 07/15/17 07:00 Pulse Ox 100 07/15/17 07:45 Intake & Output 07/14/17 07/15/17 07/15/17 18:59 06:59 18:59 Intake Total 1135 1300 200 Output Total 1200 2000 Balance -65 1300 -1800 Weight (lbs) 44.906 kg 45.677 kg Intake: Intake, IV Amount 400 1300 D5-0.45NS 1,000 ml @ 75 1000 mls/hr IV .[id number] [facility] Rx #:[id number] Piperacillin Sodium/ 150 50 Tazobact 3.375 gm In Sodium Chloride 0.9% 50 ml @ 100 mls/hr IV Q8H [facility] Rx#:[id number] Vancomycin HCl 0.75 gm In 250 Sodium Chloride 0.9% 250 ml @ 165 mls/hr IV Q12H [facility] Rx#:[id number] Vancomycin HCl 1 gm In 250 Sodium Chloride 0.9% 250 ml @ 165 mls/hr IV Q24H [facility] Rx#:[id number] Tube Feeding 535 Other 200 200 Output: Urine 1000 1600 Stool 200 400 Other: Stool Characteristics Liquid Liquid Green Green Active Medications: Current Medications Acetaminophen (Tylenol 650mg/20.3ml Suspension) 640 mg GT Q4H PRN PRN Reason: Pain or Fever >101 Stop: 09/10/17 13:43 Last Admin: 07/13/17 09:50 Dose: 640 mg Albuterol Sulfate (Albuterol 2.5mg/3ml Neb Ud) 1.25 mg HHN Q6HRT [facility] Stop: 09/11/17 00:59 Last Admin: 07/15/17 07:44 Dose: 1.25 mg Artificial Tears (Artificial Tears Ophth Soln) 1 drop EACH EYE Q4HR [facility] Stop: 09/10/17 15:59 Last Admin: 07/15/17 04:34 Dose: 1 drop Ascorbic Acid (Vitamin C) 500 mg GT DAILY [facility] Stop: 09/10/17 14:59 Last Admin: 07/14/17 08:34 Dose: 500 mg Chlorhexidine Gluconate (Peridex) 15 ml MM 0800,2000 [facility] Stop: 09/10/17 19:59 Last Admin: 07/14/17 20:50 Dose: 15 ml Digoxin (Lanoxin) 0.125 mg GT MWF [facility] Stop: 09/10/17 14:59 Last Admin: 07/14/17 08:34 Dose: 0.125 mg Folic Acid (Folate) 1 mg GT DAILY [facility] Stop: 09/10/17 14:59 Last Admin: 07/14/17 08:34 Dose: 1 mg Heparin Sodium (Porcine) (Heparin) 5,000 units SUBQ Q12HR [facility] Stop: 09/10/17 20:59 Last Admin: 07/14/17 20:48 Dose: 5,000 units Hydroxyzine HCl (Atarax) 25 mg GT TID [facility] PRN Reason: Protocol Stop: 09/12/17 16:59 Last Admin: 07/14/17 20:50 Dose: 25 mg Piperacillin Sod/Tazobactam (Sod 3.375 gm/ Sodium Chloride) 50 mls @ 100 mls/ hr IV Q8H [facility] Stop: 09/10/17 15:59 Last Infusion: 07/15/17 01:10 Dose: Infused Dextrose/Sodium Chloride (D5-0.45ns) 1,000 mls @ 75 mls/hr IV .[id number] [facility] Stop: 09/11/17 14:14 Last Admin: 07/14/17 21:00 Dose: 75 mls/hr Vancomycin HCl 1 gm/ Sodium (Chloride) 250 mls @ 165 mls/hr IV Q24H [facility] Stop: 09/12/17 20:59 Last Infusion: 07/14/17 22:30 Dose: Infused Ipratropium [place] (Atrovent Neb 0.5mg/2.5ml) 0.5 mg HHN Q6HRT [facility] Stop: 09/11/17 00:59 Last Admin: 07/15/17 07:44 Dose: 0.5 mg Lorazepam (Ativan) 0.5 mg GT Q4H PRN; Protocol PRN Reason: Anxiety Stop: 09/10/17 13:43 Last Admin: 07/14/17 00:04 Dose: 0.5 mg Metoclopramide HCl (Reglan) 5 mg GT DAILY [facility] Stop: 09/10/17 14:59 Last Admin: 07/14/17 08:34 Dose: 5 mg Miscellaneous (Vancomycin Iv Per Pharmacy) 1 [facility] PRN PRN PRN Reason: PROTOCOL Stop: 09/09/17 22:02 Miscellaneous (Darbepoetin Arsenio In Polysorbat [Aranesp]) 0.04 mg SQ QFRI [facility] Stop: 09/10/17 13:43 Miscellaneous (Vte Chemical Prophylaxis Screen/ Admission) 1 [facility] PRN PRN PRN Reason: PROTOCOL Stop: 09/10/17 19:00 Morphine Sulfate (Morphine) 15 mg GT TID [facility] Stop: 09/10/17 13:59 Last Admin: 07/14/17 20:48 Dose: 15 mg Multivitamins/Vitamin C (Theragran) 1 tab GT DAILY [facility] Stop: 09/10/17 14:59 Last Admin: 07/14/17 09:00 Dose: 1 tab Ondansetron HCl (Zofran Odt) 4 mg SL Q6H PRN PRN Reason: Nausea Stop: 09/10/17 13:43 Pantoprazole Sodium (Protonix) 40 mg GT BIDAC [facility] Stop: 09/10/17 16:29 Last Admin: 07/14/17 16:28 Dose: 40 mg Senna (Senna) 8.6 mg GT HS [facility] Stop: 09/10/17 20:59 Last Admin: 07/14/17 20:49 Dose: 8.6 mg Thiamine HCl (Vitamin B1) 100 mg GT DAILY [facility] Stop: 09/10/17 14:59 Last Admin: 07/14/17 09:52 Dose: 100 mg Zinc Sulfate (Zinc Sulfate) 220 mg GT DAILY [facility] Stop: 09/10/17 14:59 Last Admin: 07/14/17 09:52 Dose: 220 mg - Procedures Procedures: Procedures Procedure Code Date RESPIRATORY VENTILATION, 24-96 CONSECUTIVE HOURS [id number] 07/12/17 Nutritional Asmnt/Malnutr-PDOC - Dietary Evaluation Malnutrition Findings (Please click <Entered> for more info): Nutritional Asmnt/Malnutrition Start: 07/13/17 14: 18 Text: Status: Complete Freq: Document 07/13/17 14:18 SUSAN (Rec: 07/13/17 14:25 [email or web address] Nutritional Asmnt/Malnutrition Patient General Information Nutritional Screening High Risk Consult Diagnosis PNA Pertinent Medical Hx/Surgical Hx PUD, GERD, respiratory failure , cirrhosis, anemia, dysphagia , a fib, PEG/GERD Subjective Information Consult received for ayaan < 12. Pt seen on vent via trach. Verified tube feeding running at 60ml/hr at this time. Spoke with RN, pt tolerated TF well. Pt had diarrhea from last night, c diff test ordered. Current Diet Order/ Nutrition Support [employer] HN 60ml/hr x 20hr Pertinent Medications vit C, D5-0.45ns, folate, reglan, theragran, protonix, piperacillin, senna, vit B1, vancomycin, Zinc Pertinent Labs 07/12 Na 130, K 4.3, Cl 96, BUN 17, Cr 0.6, Glucose 90, Alb 2 .2 Nutritional Hx/Data Height 1.63 m Height (Calculated Centimeters) 162.6 Current Weight (lbs) 44.452 kg Weight (Calculated Kilograms) 44.5 Weight (Calculated Grams) 98238.1 [place] Body Weight 130 Body Mass Index (BMI) 16.8 Weight Status Underweight GI Symptoms GI Symptoms Diarrhea Last BM 07/13 Difficult in: None Skin Integrity/Comment: open wound to buttocks, ulceration to right calf, bruise to biletarl upper and lower extremities, discoloration to sacrum Estimated Nutritional Goals Calories/Kcals/Kg 23-27 Kcals Calculated 6332-5844 Protein g/k-1.2 Protein Calculated 54-65 Fluid: ml 1242-1458ml (1ml/kcal) Nutritional Problem 1. Problem Problem increased nutrition needs ( protein) Etiology increased metabolic demand for wound healing Signs/Symptoms: open wound, ulceration Intervention/Recommendation Comments 1. Continue with current TF regimen. It provides 1400kcal, 65g protein, 972ml free water , meeting 100% of nutritional needs 2. Monitor TF rate, tolerance, wt weekly, skin integrity and labs 3. F/U as moderate risk in 3-5 days, 03/31-04/02 Expected Outcomes/Goals Expected Outcomes/Goals 1. Pt to meet at least 75% of nutritional needs via nutrition support with tolerance 2. Wt stability, skin to remain intact, labs to approach WNL.
[2017-07-15] MEDS: Morphine 10 mg/5 ml 5mL UDC GT SCH ×3 (09:54→21:01)
[2017-07-15] MEDS: Multivitamin Tab GT SCH (09:56)
--- NOTE | 2017-07-15 13:49 | Internal Medicine Prog Note ---
Internal Medicine Subjective - Subjective Service Date: 07/15/17 Patient seen and examined:: with staff Patient is:: awake Per staff patient has:: tolerating meds Internal Medicine Objective - Results Result Diagrams: 07/14/17 04:26 07/14/17 04:26 Recent Labs: Laboratory Last Values WBC 13.2 Th/cmm (4.8-10.8) H 07/14/17 04:26 RBC 2.91 Mil/cmm (4.30-5.70) L 07/14/17 04:26 Hgb 9.1 gm/dL (12-16) L 07/14/17 04:26 Hct 27.7 % (41.0-60) L 07/14/17 04:26 MCV 95.3 fl (80-99) 07/14/17 04:26 MCH 31.1 pg (26.0-30.0) H 07/14/17 04:26 MCHC Differential 32.7 pg (28.0-36.0) 07/14/17 04:26 RDW 21.5 % (11.5-20.0) H 07/14/17 04:26 Plt Count 197 Th/cmm (150-400) 07/14/17 04:26 MPV 7.8 fl 07/14/17 04:26 Neutrophils % 80.1 % (40.0-80.0) H 07/12/17 04:20 Band Neutrophils % 6 % (0-10) 07/11/17 19:46 Lymphocytes % 9.0 % (20.0-50.0) L 07/12/17 04:20 Monocytes % 5.1 % (2.0-10.0) 07/12/17 04:20 Eosinophils % 5.7 % (0.0-5.0) H 07/12/17 04:20 Basophils % 0.1 % (0.0-2.0) 07/12/17 04:20 Neutrophils (Manual) 73 % (40-80) 07/14/17 04:26 Lymphocytes 15 % (20-50) L 07/14/17 04:26 Monocytes 1 % (2-10) L 07/14/17 04:26 Eosinophils 11 % (0-5) H 07/14/17 04:26 Basophils 0 % (0-3) 07/11/17 19:46 Platelet Estimate ADEQUATE (NORMAL) 07/14/17 04:26 Platelet Morphology NORMAL (NORMAL) 07/11/17 19:46 Anisocytosis 1+ 07/11/17 19:46 RBC Morph Micro Appear ABNORMAL (NORMAL) 07/11/17 19:46 Specimen Source ARTERIAL 07/12/17 06:00 Sample Site Right Radial 07/12/17 06:00 pH 7.45 (7.35-7.45) 07/12/17 06:00 pCO2 50.0 mmHg (35.0-45.0) H 07/12/17 06:00 pO2 100.0 mmHg (80.0-100.0) 07/12/17 06:00 HCO3 32.2 mEq/L (20.0-26.0) H 07/12/17 06:00 Base Excess 9.3 mEq/L (-3.0-3.0) H 07/12/17 06:00 O2 Saturation 98.0 % (92.0-100.0) 07/12/17 06:00 Jose Test Positive 07/12/17 06:00 Vent Rate 24 07/12/17 06:00 Inspired O2 40 07/12/17 06:00 Tidal Volume NA 07/12/17 06:00 PEEP 5 07/12/17 06:00 Pressure (ins/psv/peep) 25 07/12/17 06:00 Critical Value SC 07/12/17 06:00 Sodium 130 mEq/L (136-145) L 07/14/17 04:26 Potassium 3.3 mEq/L (3.5-5.1) L 07/14/17 04:26 Chloride 104 mEq/L (98-107) 07/14/17 04:26 Carbon Dioxide 25.6 mEq/L (21.0-31.0) 07/14/17 04:26 Anion Gap 3.7 (7.0-16.0) L 07/14/17 04:26 BUN 17 mg/dL (7-25) 07/14/17 04:26 Creatinine 0.7 mg/dL (0.7-1.3) 07/14/17 04:26 Est GFR ( Amer) > 60.0 ml/min (>90) 07/14/17 04:26 Est GFR (Non-Af Amer) > 60.0 ml/min 07/14/17 04:26 BUN/Creatinine Ratio 24.3 07/14/17 04:26 Glucose 136 mg/dL (70-105) H 07/14/17 04:26 Whole Bld Lactic Acid 1.00 mmol/L (0.60-1.99) 07/12/17 09:10 Calcium 9.7 mg/dL (8.6-10.3) 07/14/17 04:26 Total Bilirubin 1.1 mg/dL (0.3-1.0) H 07/12/17 04:20 AST 45 U/L (13-39) H 07/12/17 04:20 ALT 19 U/L (7-52) 07/12/17 04:20 Alkaline Phosphatase 163 U/L (34-104) H 07/12/17 04:20 Total Protein 8.3 gm/dL (6.0-8.3) 07/12/17 04:20 Albumin 2.2 gm/dL (4.2-5.5) L 07/12/17 04:20 Globulin 6.1 gm/dL 07/12/17 04:20 Albumin/Globulin Ratio 0.4 (1.0-1.8) L 07/12/17 04:20 Stool Leukocyte NO WBC SEEN 07/13/17 10:00 Vancomycin Trough 24.8 ug/mL (10-20) H 07/14/17 04:26 - Physical Exam Vitals and I&O: Vital Signs Temp 97.8 F 07/15/17 07:00 Pulse 101 07/15/17 13:38 Resp 22 07/15/17 07:00 BP 107/65 07/15/17 07:00 Pulse Ox 100 07/15/17 13:38 Intake & Output 07/14/17 07/15/17 07/15/17 18:59 06:59 18:59 Intake Total 1135 1300 200 Output Total 1200 2000 Balance -65 1300 -1800 Weight (lbs) 99 lb 100 lb 11.2 oz Intake: Intake, IV Amount 400 1300 D5-0.45NS 1,000 ml @ 75 1000 mls/hr IV .[id number] [facility] Rx #:[id number] Piperacillin Sodium/ 150 50 Tazobact 3.375 gm In Sodium Chloride 0.9% 50 ml @ 100 mls/hr IV Q8H [facility] Rx#:[id number] Vancomycin HCl 0.75 gm In 250 Sodium Chloride 0.9% 250 ml @ 165 mls/hr IV Q12H [facility] Rx#:[id number] Vancomycin HCl 1 gm In 250 Sodium Chloride 0.9% 250 ml @ 165 mls/hr IV Q24H [facility] Rx#:[id number] Tube Feeding 535 Other 200 200 Output: Urine 1000 1600 Stool 200 400 Other: Stool Characteristics Liquid Liquid Liquid Green Green Green Active Medications: Current Medications Acetaminophen (Tylenol 650mg/20.3ml Suspension) 640 mg GT Q4H PRN PRN Reason: Pain or Fever >101 Stop: 09/10/17 13:43 Last Admin: 07/13/17 09:50 Dose: 640 mg Albuterol Sulfate (Albuterol 2.5mg/3ml Neb Ud) 1.25 mg HHN Q6HRT [facility] Stop: 09/11/17 00:59 Last Admin: 07/15/17 13:33 Dose: 1.25 mg Artificial Tears (Artificial Tears Ophth Soln) 1 drop EACH EYE Q4HR [facility] Stop: 09/10/17 15:59 Last Admin: 07/15/17 04:34 Dose: 1 drop Ascorbic Acid (Vitamin C) 500 mg GT DAILY [facility] Stop: 09/10/17 14:59 Last Admin: 07/15/17 09:56 Dose: 500 mg Chlorhexidine Gluconate (Peridex) 15 ml MM 0800,2000 [facility] Stop: 09/10/17 19:59 Last Admin: 07/14/17 20:50 Dose: 15 ml Digoxin (Lanoxin) 0.125 mg GT MWF [facility] Stop: 09/10/17 14:59 Last Admin: 07/14/17 08:34 Dose: 0.125 mg Folic Acid (Folate) 1 mg GT DAILY [facility] Stop: 09/10/17 14:59 Last Admin: 07/15/17 09:56 Dose: 1 mg Heparin Sodium (Porcine) (Heparin) 5,000 units SUBQ Q12HR [facility] Stop: 09/10/17 20:59 Last Admin: 07/15/17 09:57 Dose: 5,000 units Hydroxyzine HCl (Atarax) 25 mg GT TID [facility] PRN Reason: Protocol Stop: 09/12/17 16:59 Last Admin: 07/15/17 09:56 Dose: 25 mg Dextrose/Sodium Chloride (D5-0.45ns) 1,000 mls @ 75 mls/hr IV .[id number] [facility] Stop: 09/11/17 14:14 Last Admin: 07/14/17 21:00 Dose: 75 mls/hr Vancomycin HCl 1 gm/ Sodium (Chloride) 250 mls @ 165 mls/hr IV Q24H [facility] Stop: 09/12/17 20:59 Last Infusion: 07/14/17 22:30 Dose: Infused Colistimethate Sodium 100 mg/ (Sodium Chloride) 100 mls @ 100 mls/hr IV Q12H [facility] Stop: 09/13/17 13:59 Ipratropium [place] (Atrovent Neb 0.5mg/2.5ml) 0.5 mg HHN Q6HRT [facility] Stop: 09/11/17 00:59 Last Admin: 07/15/17 13:33 Dose: 0.5 mg Lorazepam (Ativan) 0.5 mg GT Q4H PRN; Protocol PRN Reason: Anxiety Stop: 09/10/17 13:43 Last Admin: 07/14/17 00:04 Dose: 0.5 mg Metoclopramide HCl (Reglan) 5 mg GT DAILY [facility] Stop: 09/10/17 14:59 Last Admin: 07/15/17 09:56 Dose: 5 mg Miscellaneous (Vancomycin Iv Per Pharmacy) 1 [facility] PRN PRN PRN Reason: PROTOCOL Stop: 09/09/17 22:02 Miscellaneous (Darbepoetin Arsenio In Polysorbat [Aranesp]) 0.04 mg SQ QFRI [facility] Stop: 09/10/17 13:43 Miscellaneous (Vte Chemical Prophylaxis Screen/ Admission) 1 [facility] PRN PRN PRN Reason: PROTOCOL Stop: 09/10/17 19:00 Morphine Sulfate (Morphine) 15 mg GT TID [facility] Stop: 09/10/17 13:59 Last Admin: 07/15/17 09:54 Dose: 15 mg Multivitamins/Vitamin C (Theragran) 1 tab GT DAILY [facility] Stop: 09/10/17 14:59 Last Admin: 07/15/17 09:56 Dose: 1 tab Ondansetron HCl (Zofran Odt) 4 mg SL Q6H PRN PRN Reason: Nausea Stop: 09/10/17 13:43 Pantoprazole Sodium (Protonix) 40 mg GT BIDAC [facility] Stop: 09/10/17 16:29 Last Admin: 07/14/17 16:28 Dose: 40 mg Senna (Senna) 8.6 mg GT HS [facility] Stop: 09/10/17 20:59 Last Admin: 07/14/17 20:49 Dose: 8.6 mg Thiamine HCl (Vitamin B1) 100 mg GT DAILY [facility] Stop: 09/10/17 14:59 Last Admin: 07/15/17 09:56 Dose: 100 mg Zinc Sulfate (Zinc Sulfate) 220 mg GT DAILY [facility] Stop: 09/10/17 14:59 Last Admin: 07/15/17 09:56 Dose: 220 mg - Procedures Procedures: Procedures Procedure Code Date RESPIRATORY VENTILATION, 24-96 CONSECUTIVE HOURS [id number] 07/12/17 Internal Medicine Assmt/Plan - Assessment Assessment: Pneumonia Leukocytosis Diarrhea hx cirrhosis Protein calorie malnutrition sacral ulcer left leg ulcer - Plan Plan: icu monitoring follow up chest xray in am follow up labs in am continue current plan of care Nutritional Asmnt/Malnutr-PDOC - Dietary Evaluation Malnutrition Findings (Please click <Entered> for more info): Nutritional Asmnt/Malnutrition Start: 07/13/17 14: 18 Text: Status: Complete Freq: Document 07/13/17 14:18 GRZEGORZ (Rec: 07/13/17 14:25 PATRICIA [email or web address]) Nutritional Asmnt/Malnutrition Patient General Information Nutritional Screening High Risk Consult Diagnosis PNA Pertinent Medical Hx/Surgical Hx PUD, GERD, respiratory failure , cirrhosis, anemia, dysphagia , a fib, PEG/GERD Subjective Information Consult received for ayaan < 12. Pt seen on vent via trach. Verified tube feeding running at 60ml/hr at this time. Spoke with RN, pt tolerated TF well. Pt had diarrhea from last night, c diff test ordered. Current Diet Order/ Nutrition Support FIbersource HN 60ml/hr x 20hr Pertinent Medications vit C, D5-0.45ns, folate, reglan, theragran, protonix, piperacillin, senna, vit B1, vancomycin, Zinc Pertinent Labs 07/12 Na 130, K 4.3, Cl 96, BUN 17, Cr 0.6, Glucose 90, Alb 2 .2 Nutritional Hx/Data Height 5 ft 4 in Height (Calculated Centimeters) 162.6 Current Weight (lbs) 98 lb Weight (Calculated Kilograms) 44.5 Weight (Calculated Grams) 62699.1 [place] Body Weight 130 Body Mass Index (BMI) 16.8 Weight Status Underweight GI Symptoms GI Symptoms Diarrhea Last BM 07/13 Difficult in: None Skin Integrity/Comment: open wound to buttocks, ulceration to right calf, bruise to biletarl upper and lower extremities, discoloration to sacrum Estimated Nutritional Goals Calories/Kcals/Kg 23-27 Kcals Calculated 5259-6917 Protein g/k-1.2 Protein Calculated 54-65 Fluid: ml 1242-1458ml (1ml/kcal) Nutritional Problem 1. Problem Problem increased nutrition needs ( protein) Etiology increased metabolic demand for wound healing Signs/Symptoms: open wound, ulceration Intervention/Recommendation Comments 1. Continue with current TF regimen. It provides 1400kcal, 65g protein, 972ml free water , meeting 100% of nutritional needs 2. Monitor TF rate, tolerance, wt weekly, skin integrity and labs 3. F/U as moderate risk in 3-5 days, 03/31-04/02 Expected Outcomes/Goals Expected Outcomes/Goals 1. Pt to meet at least 75% of nutritional needs via nutrition support with tolerance 2. Wt stability, skin to remain intact, labs to approach WNL.
[2017-07-15] MEDS: D5-0.45NS 1,000 ML IV SCH (14:00)
--- NOTE | 2017-07-15 16:32 | Infectious Disease Prog Note ---
Infectious Disease Subjective - Review of Systems Service Date: 07/15/17 Subjective: Patient is brought to the ICU for worsening pneumonia. Infectious Disease Objective - Results Result Diagrams: 07/14/17 04:26 07/14/17 04:26 Recent Labs: Laboratory Last Values WBC 13.2 Th/cmm (4.8-10.8) H 07/14/17 04:26 RBC 2.91 Mil/cmm (4.30-5.70) L 07/14/17 04:26 Hgb 9.1 gm/dL (12-16) L 07/14/17 04:26 Hct 27.7 % (41.0-60) L 07/14/17 04:26 MCV 95.3 fl (80-99) 07/14/17 04:26 MCH 31.1 pg (26.0-30.0) H 07/14/17 04:26 MCHC Differential 32.7 pg (28.0-36.0) 07/14/17 04:26 RDW 21.5 % (11.5-20.0) H 07/14/17 04:26 Plt Count 197 Th/cmm (150-400) 07/14/17 04:26 MPV 7.8 fl 07/14/17 04:26 Neutrophils % 80.1 % (40.0-80.0) H 07/12/17 04:20 Band Neutrophils % 6 % (0-10) 07/11/17 19:46 Lymphocytes % 9.0 % (20.0-50.0) L 07/12/17 04:20 Monocytes % 5.1 % (2.0-10.0) 07/12/17 04:20 Eosinophils % 5.7 % (0.0-5.0) H 07/12/17 04:20 Basophils % 0.1 % (0.0-2.0) 07/12/17 04:20 Neutrophils (Manual) 73 % (40-80) 07/14/17 04:26 Lymphocytes 15 % (20-50) L 07/14/17 04:26 Monocytes 1 % (2-10) L 07/14/17 04:26 Eosinophils 11 % (0-5) H 07/14/17 04:26 Basophils 0 % (0-3) 07/11/17 19:46 Platelet Estimate ADEQUATE (NORMAL) 07/14/17 04:26 Platelet Morphology NORMAL (NORMAL) 07/11/17 19:46 Anisocytosis 1+ 07/11/17 19:46 RBC Morph Micro Appear ABNORMAL (NORMAL) 07/11/17 19:46 Specimen Source ARTERIAL 07/12/17 06:00 Sample Site Right Radial 07/12/17 06:00 pH 7.45 (7.35-7.45) 07/12/17 06:00 pCO2 50.0 mmHg (35.0-45.0) H 07/12/17 06:00 pO2 100.0 mmHg (80.0-100.0) 07/12/17 06:00 HCO3 32.2 mEq/L (20.0-26.0) H 07/12/17 06:00 Base Excess 9.3 mEq/L (-3.0-3.0) H 07/12/17 06:00 O2 Saturation 98.0 % (92.0-100.0) 07/12/17 06:00 Jose Test Positive 07/12/17 06:00 Vent Rate 24 07/12/17 06:00 Inspired O2 40 07/12/17 06:00 Tidal Volume NA 07/12/17 06:00 PEEP 5 07/12/17 06:00 Pressure (ins/psv/peep) 25 07/12/17 06:00 Critical Value SC 07/12/17 06:00 Sodium 130 mEq/L (136-145) L 07/14/17 04:26 Potassium 3.3 mEq/L (3.5-5.1) L 07/14/17 04:26 Chloride 104 mEq/L (98-107) 07/14/17 04:26 Carbon Dioxide 25.6 mEq/L (21.0-31.0) 07/14/17 04:26 Anion Gap 3.7 (7.0-16.0) L 07/14/17 04:26 BUN 17 mg/dL (7-25) 07/14/17 04:26 Creatinine 0.7 mg/dL (0.7-1.3) 07/14/17 04:26 Est GFR ( Amer) > 60.0 ml/min (>90) 07/14/17 04:26 Est GFR (Non-Af Amer) > 60.0 ml/min 07/14/17 04:26 BUN/Creatinine Ratio 24.3 07/14/17 04:26 Glucose 136 mg/dL (70-105) H 07/14/17 04:26 POC Glucose 99 MG/DL (70 - 105) 07/15/17 13:48 Whole Bld Lactic Acid 1.00 mmol/L (0.60-1.99) 07/12/17 09:10 Calcium 9.7 mg/dL (8.6-10.3) 07/14/17 04:26 Total Bilirubin 1.1 mg/dL (0.3-1.0) H 07/12/17 04:20 AST 45 U/L (13-39) H 07/12/17 04:20 ALT 19 U/L (7-52) 07/12/17 04:20 Alkaline Phosphatase 163 U/L (34-104) H 07/12/17 04:20 Total Protein 8.3 gm/dL (6.0-8.3) 07/12/17 04:20 Albumin 2.2 gm/dL (4.2-5.5) L 07/12/17 04:20 Globulin 6.1 gm/dL 07/12/17 04:20 Albumin/Globulin Ratio 0.4 (1.0-1.8) L 07/12/17 04:20 Stool Leukocyte NO WBC SEEN 07/13/17 10:00 Vancomycin Trough 24.8 ug/mL (10-20) H 07/14/17 04:26 - Physical Exam Vitals and I&O: Vital Signs Temp 98.9 F 07/15/17 12:00 Pulse 114 07/15/17 15:00 Resp 25 07/15/17 15:00 BP 101/56 07/15/17 15:00 Pulse Ox 100 07/15/17 14:00 Intake & Output 07/14/17 07/15/17 07/15/17 18:59 06:59 18:59 Intake Total 1135 1300 1200 Output Total 1200 2000 Balance -65 1300 -800 Weight (lbs) 44.906 kg 45.677 kg Intake: Intake, IV Amount 400 1300 1000 D5-0.45NS 1,000 ml @ 75 1000 1000 mls/hr IV .[id number] [facility] Rx #:[id number] Piperacillin Sodium/ 150 50 Tazobact 3.375 gm In Sodium Chloride 0.9% 50 ml @ 100 mls/hr IV Q8H [facility] Rx#:[id number] Vancomycin HCl 0.75 gm In 250 Sodium Chloride 0.9% 250 ml @ 165 mls/hr IV Q12H [facility] Rx#:[id number] Vancomycin HCl 1 gm In 250 Sodium Chloride 0.9% 250 ml @ 165 mls/hr IV Q24H [facility] Rx#:[id number] Tube Feeding 535 Other 200 200 Output: Urine 1000 1600 Stool 200 400 Other: Stool Characteristics Liquid Liquid Liquid Green Green Green Active Medications: Current Medications Acetaminophen (Tylenol 650mg/20.3ml Suspension) 640 mg GT Q4H PRN PRN Reason: Pain or Fever >101 Stop: 09/10/17 13:43 Last Admin: 07/13/17 09:50 Dose: 640 mg Albuterol Sulfate (Albuterol 2.5mg/3ml Neb Ud) 1.25 mg HHN Q6HRT [facility] Stop: 09/11/17 00:59 Last Admin: 07/15/17 13:33 Dose: 1.25 mg Artificial Tears (Artificial Tears Ophth Soln) 1 drop EACH EYE Q4HR [facility] Stop: 09/10/17 15:59 Last Admin: 07/15/17 14:02 Dose: 1 drop Ascorbic Acid (Vitamin C) 500 mg GT DAILY [facility] Stop: 09/10/17 14:59 Last Admin: 07/15/17 09:56 Dose: 500 mg Chlorhexidine Gluconate (Peridex) 15 ml MM 0800,2000 [facility] Stop: 09/10/17 19:59 Last Admin: 07/15/17 08:30 Dose: 15 ml Digoxin (Lanoxin) 0.125 mg GT MWF [facility] Stop: 09/10/17 14:59 Last Admin: 07/14/17 08:34 Dose: 0.125 mg Folic Acid (Folate) 1 mg GT DAILY [facility] Stop: 09/10/17 14:59 Last Admin: 07/15/17 09:56 Dose: 1 mg Heparin Sodium (Porcine) (Heparin) 5,000 units SUBQ Q12HR [facility] Stop: 09/10/17 20:59 Last Admin: 07/15/17 09:57 Dose: 5,000 units Hydroxyzine HCl (Atarax) 25 mg GT TID [facility] PRN Reason: Protocol Stop: 09/12/17 16:59 Last Admin: 07/15/17 14:12 Dose: 25 mg Dextrose/Sodium Chloride (D5-0.45ns) 1,000 mls @ 75 mls/hr IV .[id number] [facility] Stop: 09/11/17 14:14 Last Admin: 07/15/17 14:00 Dose: 75 mls/hr Vancomycin HCl 1 gm/ Sodium (Chloride) 250 mls @ 165 mls/hr IV Q24H [facility] Stop: 09/12/17 20:59 Last Infusion: 07/14/17 22:30 Dose: Infused Colistimethate Sodium 100 mg/ (Sodium Chloride) 100 mls @ 100 mls/hr IV Q12H [facility] Stop: 09/13/17 13:59 Last Admin: 07/15/17 14:38 Dose: 100 mls/hr Ipratropium [place] (Atrovent Neb 0.5mg/2.5ml) 0.5 mg HHN Q6HRT [facility] Stop: 09/11/17 00:59 Last Admin: 07/15/17 13:33 Dose: 0.5 mg Lorazepam (Ativan) 0.5 mg GT Q4H PRN; Protocol PRN Reason: Anxiety Stop: 09/10/17 13:43 Last Admin: 07/14/17 00:04 Dose: 0.5 mg Metoclopramide HCl (Reglan) 5 mg GT DAILY [facility] Stop: 09/10/17 14:59 Last Admin: 07/15/17 09:56 Dose: 5 mg Miscellaneous (Vancomycin Iv Per Pharmacy) 1 [facility] PRN PRN PRN Reason: PROTOCOL Stop: 09/09/17 22:02 Miscellaneous (Darbepoetin Arsenio In Polysorbat [Aranesp]) 0.04 mg SQ QFRI [facility] Stop: 09/10/17 13:43 Miscellaneous (Vte Chemical Prophylaxis Screen/ Admission) 1 [facility] PRN PRN PRN Reason: PROTOCOL Stop: 09/10/17 19:00 Morphine Sulfate (Morphine) 15 mg GT TID [facility] Stop: 09/10/17 13:59 Last Admin: 07/15/17 14:12 Dose: 15 mg Multivitamins/Vitamin C (Theragran) 1 tab GT DAILY [facility] Stop: 09/10/17 14:59 Last Admin: 07/15/17 09:56 Dose: 1 tab Ondansetron HCl (Zofran Odt) 4 mg SL Q6H PRN PRN Reason: Nausea Stop: 09/10/17 13:43 Pantoprazole Sodium (Protonix) 40 mg GT BIDAC [facility] Stop: 09/10/17 16:29 Last Admin: 07/15/17 07:30 Dose: Not Given Senna (Senna) 8.6 mg GT HS [facility] Stop: 09/10/17 20:59 Last Admin: 07/14/17 20:49 Dose: 8.6 mg Thiamine HCl (Vitamin B1) 100 mg GT DAILY [facility] Stop: 09/10/17 14:59 Last Admin: 07/15/17 09:56 Dose: 100 mg Zinc Sulfate (Zinc Sulfate) 220 mg GT DAILY [facility] Stop: 09/10/17 14:59 Last Admin: 07/15/17 09:56 Dose: 220 mg General: no acute distress, well developed, well nourished HEENT: atraumatic, normocephalic, PERRLA, EOMI, moist mucous membrane Neck: supple, tracheostomy, no thyromegaly Cardiovascular: S1S2, regular Lungs: clear to auscultation bilaterally, rhonchi Abdomen: soft, no tender, no distended Extremities: no cyanosis, no clubbing, no edema Neurological: awake, alert, oriented Skin: intact - Procedures Procedures: Procedures Procedure Code Date RESPIRATORY VENTILATION, 24-96 CONSECUTIVE HOURS [id number] 07/12/17 Infectious Disease Assmt/Plan - Assessment Assessment: Impression: 1. Diarrhea. stool for C diff : neg. 2. Pneumonia. MDRO pseudomonas. 3. Leukocytosis. 4. Cirrhosis. 5. Afib, currently NSR. 6. h/o alcohol abuse. 7. Protein calorie malnutrition. 8. decubitus, sacral. There is no sign of infection,. 9. left leg decubitus ulcer. - Plan Plan: Change antibiotics to colistin. Nutritional Asmnt/Malnutr-PDOC - Dietary Evaluation Malnutrition Findings (Please click <Entered> for more info): Nutritional Asmnt/Malnutrition Start: 07/13/17 14: 18 Text: Status: Complete Freq: Document 07/13/17 14:18 GRZEGORZ (Rec: 07/13/17 14:25 SUSAN [email or web address]) Nutritional Asmnt/Malnutrition Patient General Information Nutritional Screening High Risk Consult Diagnosis PNA Pertinent Medical Hx/Surgical Hx PUD, GERD, respiratory failure , cirrhosis, anemia, dysphagia , a fib, PEG/GERD Subjective Information Consult received for ayaan < 12. Pt seen on vent via trach. Verified tube feeding running at 60ml/hr at this time. Spoke with RN, pt tolerated TF well. Pt had diarrhea from last night, c diff test ordered. Current Diet Order/ Nutrition Support FI[employer]ource HN 60ml/hr x 20hr Pertinent Medications vit C, D5-0.45ns, folate, reglan, theragran, protonix, piperacillin, senna, vit B1, vancomycin, Zinc Pertinent Labs 07/12 Na 130, K 4.3, Cl 96, BUN 17, Cr 0.6, Glucose 90, Alb 2 .2 Nutritional Hx/Data Height 1.63 m Height (Calculated Centimeters) 162.6 Current Weight (lbs) 44.452 kg Weight (Calculated Kilograms) 44.5 Weight (Calculated Grams) 49365.1 [place] Body Weight 130 Body Mass Index (BMI) 16.8 Weight Status Underweight GI Symptoms GI Symptoms Diarrhea Last BM 07/13 Difficult in: None Skin Integrity/Comment: open wound to buttocks, ulceration to right calf, bruise to biletarl upper and lower extremities, discoloration to sacrum Estimated Nutritional Goals Calories/Kcals/Kg 23-27 Kcals Calculated 3686-1159 Protein g/k-1.2 Protein Calculated 54-65 Fluid: ml 1242-1458ml (1ml/kcal) Nutritional Problem 1. Problem Problem increased nutrition needs ( protein) Etiology increased metabolic demand for wound healing Signs/Symptoms: open wound, ulceration Intervention/Recommendation Comments 1. Continue with current TF regimen. It provides 1400kcal, 65g protein, 972ml free water , meeting 100% of nutritional needs 2. Monitor TF rate, tolerance, wt weekly, skin integrity and labs 3. F/U as moderate risk in 3-5 days, 03/31-04/02 Expected Outcomes/Goals Expected Outcomes/Goals 1. Pt to meet at least 75% of nutritional needs via nutrition support with tolerance 2. Wt stability, skin to remain intact, labs to approach WNL.
[2017-07-16] MEDS: Albuterol Nebulizer 2.5mg/3mL HHN SCH ×4 (01:29→18:55)
[2017-07-16] MEDS: Ipratropium Neb 0.5 mg/2.5 mL UD HHN SCH ×4 (01:30→18:55)
[2017-07-16] MEDS: Polyvinyl Alcohol Ophth Soln 15 mL Bottle EACH EYE SCH ×6 (03:47→23:18)
[2017-07-16 05:07] LABS: MEAN PLATELET VOLUME 8.1 fl
[2017-07-16 05:11] LABS: HEMOGLOBIN 8.8 gm/dL (12-16); MEAN CELL VOLUME 95.2 fl (80-99); MEAN CORPUSCULAR HEMOGLOBIN 32.2 pg (26.0-30.0); MEAN CORPUSCULAR HGB CONC 33.8 pg (28.0-36.0); PLATELET COUNT 150 Th/cmm (150-400); RED BLOOD COUNT 2.73 Mil/cmm (4.30-5.70); RED CELL DISTRIBUTION WIDTH 21.7 % (11.5-20.0); WHITE BLOOD COUNT 10.5 Th/cmm (4.8-10.8)
[2017-07-16 05:18] LABS: ANION GAP 6.2 (7.0-16.0); BUN - UREA NITROGEN 10 mg/dL (7-25); CALCIUM SERUM 9.8 mg/dL (8.6-10.3); CHLORIDE 100 mEq/L (98-107); CREATININE - SERUM 0.5 mg/dL (0.7-1.3); GFR AFRICAN-AMERICAN > 60.0 ml/min (>90); GFR NON AFRICAN-AMERICAN > 60.0 ml/min; GLUCOSE 117 mg/dL (70-105); POTASSIUM SERUM 4.2 mEq/L (3.5-5.1); SODIUM SERUM 133 mEq/L (136-145)
[2017-07-16 05:21] LABS: MANUAL DIFF REQUIRED? YES
[2017-07-16] MEDS: D5-0.45NS 1,000 ML IV SCH ×2 (05:45→20:58)
[2017-07-16 06:09] LABS: TOTAL CELLS COUNTED 100
[2017-07-16 06:10] LABS: EOSINOPHIL 17 % (0-5); LYMPHOCYTE 12 % (20-50); MONOCYTE 5 % (2-10); NEUTROPHILS 66 % (40-80)
[2017-07-16] MEDS: Pantoprazole 40 mg/Packet GT SCH ×2 (06:53→16:30)
[2017-07-16] MEDS: Multivitamin Tab GT SCH (08:19)
[2017-07-16] MEDS: Morphine 10 mg/5 ml 5mL UDC GT SCH ×3 (08:22→20:53)
[2017-07-16] MEDS: Chlorhexidine Gluconate 0.12% 15mL Mouthwash MM SCH ×2 (08:23→21:11)
[2017-07-16] MEDS ORDERED: D5-0.9%NS 1,000 ML IV SCH (18:45)
[2017-07-17] MEDS: Polyvinyl Alcohol Ophth Soln 15 mL Bottle EACH EYE SCH ×6 (00:49→20:08)
[2017-07-17] MEDS: Ipratropium Neb 0.5 mg/2.5 mL UD HHN SCH ×4 (01:16→18:42)
[2017-07-17] MEDS: Albuterol Nebulizer 2.5mg/3mL HHN SCH ×4 (01:16→18:42)
[2017-07-17 05:57] LABS: HEMATOCRIT 28.3 % (41.0-60); HEMOGLOBIN 9.5 gm/dL (12-16); MEAN CELL VOLUME 97.3 fl (80-99); MEAN CORPUSCULAR HEMOGLOBIN 32.8 pg (26.0-30.0); MEAN CORPUSCULAR HGB CONC 33.7 pg (28.0-36.0); MEAN PLATELET VOLUME 8.4 fl; PLATELET COUNT 165 Th/cmm (150-400); RED BLOOD COUNT 2.91 Mil/cmm (4.30-5.70); RED CELL DISTRIBUTION WIDTH 22.2 % (11.5-20.0)
[2017-07-17 06:27] LABS: ALB/GLOB RATIO 0.4 (1.0-1.8); ALBUMIN 2.2 gm/dL (4.2-5.5); ALKALINE PHOSPHATASE 171 U/L (34-104); BILIRUBIN,TOTAL 0.8 mg/dL (0.3-1.0); BUN - UREA NITROGEN 12 mg/dL (7-25); CALCIUM SERUM 10.6 mg/dL (8.6-10.3); CARBON DIOXIDE 30.5 mEq/L (21.0-31.0); CHLORIDE 101 mEq/L (98-107); CREATININE - SERUM 0.5 mg/dL (0.7-1.3); GFR AFRICAN-AMERICAN > 60.0 ml/min (>90); GFR NON AFRICAN-AMERICAN > 60.0 ml/min; GLUCOSE 114 mg/dL (70-105); POTASSIUM SERUM 4.5 mEq/L (3.5-5.1); SGOT 50 U/L (13-39); SGPT/ALT 22 U/L (7-52); SODIUM SERUM 133 mEq/L (136-145); TOTAL PROTEIN,SERUM 8.1 gm/dL (6.0-8.3)
[2017-07-17 06:48] LABS: WHITE BLOOD COUNT 14.2 Th/cmm (4.8-10.8)
[2017-07-17 06:49] LABS: MANUAL DIFF REQUIRED? YES
[2017-07-17] MEDS: Pantoprazole 40 mg/Packet GT SCH ×2 (06:52→16:30)
[2017-07-17] MEDS: Multivitamin Tab GT SCH (08:26)
[2017-07-17] MEDS: Chlorhexidine Gluconate 0.12% 15mL Mouthwash MM SCH ×2 (08:26→19:53)
[2017-07-17 08:30] LABS: EOSINOPHIL 20 % (0-5); LYMPHOCYTE 5 % (20-50); MONOCYTE 2 % (2-10); NEUTROPHILS 73 % (40-80); TOTAL CELLS COUNTED 100
[2017-07-17 08:31] LABS: PLATELET ESTIMATE ADEQUATE (NORMAL)
[2017-07-17] MEDS: Morphine 10 mg/5 ml 5mL UDC GT SCH ×2 (09:00→17:42)
[2017-07-17] MEDS ORDERED: Morphine Sulfate 2 mg/mL 1mL Syr IV PRN (09:33)
[2017-07-17] MEDS: D5-0.45NS 1,000 ML IV SCH (13:03)
--- NOTE | 2017-07-17 14:12 | Progress Notes ---
DATE: 07/17/2017 SUBJECTIVE: The patient was seen in the ICU. The patient is awake, alert, oriented, but forgetfulness, otherwise the patient appears to be in no acute distress. The patient has a tracheostomy connected to ventilator. OBJECTIVE: VITAL SIGNS: Blood pressure 98/57, heart rate of 118, 100% FIO2 via ventilator, temperature 99.6. HEENT: Head is atraumatic and normocephalic. Eyes: Bilateral conjunctivae are clear. Bilateral pupils are equally round and reactive. NECK: Supple. No JVD. The patient has a tracheostomy connected to ventilator. CARDIOVASCULAR: S1 and S2, without murmur, sinus tach on the monitor. PULMONARY: Fine scattered rhonchi noted. GASTROINTESTINAL: Soft and nontender without guarding. Positive bowel sounds. GENITOURINARY: The patient has a gastrostomy tube in place. MUSCULOSKELETAL: No clubbing. No cyanosis noted. ASSESSMENT: 1. Pneumonia. 2. Ventilator dependent respiratory failure. 3. Dysphagia. 4. Anemia. 5. Liver cirrhosis. 6. History of alcohol abuse. PLAN: We will keep the patient inpatient to monitor due to increasing white blood cell count. We will continue current antibiotics. Put the patient on aspiration precaution. We will continue to provide pulmonary support. Treatment plans were discussed with the patient's nurse. Treatment plans were discussed with Dr. Chaudhry. JOB# [id number]
[2017-07-18] MEDS: Polyvinyl Alcohol Ophth Soln 15 mL Bottle EACH EYE SCH ×6 (00:18→21:05)
[2017-07-18] MEDS: Ipratropium Neb 0.5 mg/2.5 mL UD HHN SCH ×4 (01:05→18:47)
[2017-07-18] MEDS: Albuterol Nebulizer 2.5mg/3mL HHN SCH ×4 (01:05→18:47)
[2017-07-18] MEDS: D5-0.45NS 1,000 ML IV SCH ×2 (02:05→21:00)
[2017-07-18] MEDS: Pantoprazole 40 mg/Packet GT SCH ×2 (06:47→16:00)
[2017-07-18] MEDS: Chlorhexidine Gluconate 0.12% 15mL Mouthwash MM SCH ×2 (08:30→21:06)
[2017-07-18] MEDS: Multivitamin Tab GT SCH (09:00)
--- NOTE | 2017-07-18 09:09 | General Progress Note ---
Subjective - Review of Systems Events since last encounter: patient on trach/vent in no acute distress Objective - Results Result Diagrams: 07/17/17 04:21 07/17/17 04:21 Recent Labs: Laboratory Last Values WBC 14.2 Th/cmm (4.8-10.8) H 07/17/17 04:21 RBC 2.91 Mil/cmm (4.30-5.70) L 07/17/17 04:21 Hgb 9.5 gm/dL (12-16) L 07/17/17 04:21 Hct 28.3 % (41.0-60) L 07/17/17 04:21 MCV 97.3 fl (80-99) 07/17/17 04:21 MCH 32.8 pg (26.0-30.0) H 07/17/17 04:21 MCHC Differential 33.7 pg (28.0-36.0) 07/17/17 04:21 RDW 22.2 % (11.5-20.0) H 07/17/17 04:21 Plt Count 165 Th/cmm (150-400) 07/17/17 04:21 MPV 8.4 fl 07/17/17 04:21 Neutrophils % 80.1 % (40.0-80.0) H 07/12/17 04:20 Band Neutrophils % 6 % (0-10) 07/11/17 19:46 Lymphocytes % 9.0 % (20.0-50.0) L 07/12/17 04:20 Monocytes % 5.1 % (2.0-10.0) 07/12/17 04:20 Eosinophils % 5.7 % (0.0-5.0) H 07/12/17 04:20 Basophils % 0.1 % (0.0-2.0) 07/12/17 04:20 Neutrophils (Manual) 73 % (40-80) 07/17/17 04:21 Lymphocytes 5 % (20-50) L 07/17/17 04:21 Monocytes 2 % (2-10) 07/17/17 04:21 Eosinophils 20 % (0-5) H 07/17/17 04:21 Basophils 0 % (0-3) 07/11/17 19:46 Platelet Estimate ADEQUATE (NORMAL) 07/17/17 04:21 Platelet Morphology NORMAL (NORMAL) 07/11/17 19:46 Anisocytosis 1+ 07/11/17 19:46 RBC Morph Micro Appear ABNORMAL (NORMAL) 07/11/17 19:46 Specimen Source ARTERIAL 07/12/17 06:00 Sample Site Right Radial 07/12/17 06:00 pH 7.45 (7.35-7.45) 07/12/17 06:00 pCO2 50.0 mmHg (35.0-45.0) H 07/12/17 06:00 pO2 100.0 mmHg (80.0-100.0) 07/12/17 06:00 HCO3 32.2 mEq/L (20.0-26.0) H 07/12/17 06:00 Base Excess 9.3 mEq/L (-3.0-3.0) H 07/12/17 06:00 O2 Saturation 98.0 % (92.0-100.0) 07/12/17 06:00 Jose Test Positive 07/12/17 06:00 Vent Rate 24 07/12/17 06:00 Inspired O2 40 07/12/17 06:00 Tidal Volume NA 07/12/17 06:00 PEEP 5 07/12/17 06:00 Pressure (ins/psv/peep) 25 07/12/17 06:00 Critical Value SC 07/12/17 06:00 Sodium 133 mEq/L (136-145) L 07/17/17 04:21 Potassium 4.5 mEq/L (3.5-5.1) 07/17/17 04:21 Chloride 101 mEq/L (98-107) 07/17/17 04:21 Carbon Dioxide 30.5 mEq/L (21.0-31.0) 07/17/17 04:21 Anion Gap 6.0 (7.0-16.0) L 07/17/17 04:21 BUN 12 mg/dL (7-25) 07/17/17 04:21 Creatinine 0.5 mg/dL (0.7-1.3) L 07/17/17 04:21 Est GFR ( Amer) > 60.0 ml/min (>90) 07/17/17 04:21 Est GFR (Non-Af Amer) > 60.0 ml/min 07/17/17 04:21 BUN/Creatinine Ratio 24.0 07/17/17 04:21 Glucose 114 mg/dL (70-105) H 07/17/17 04:21 POC Glucose 99 MG/DL (70 - 105) 07/15/17 13:48 Whole Bld Lactic Acid 1.00 mmol/L (0.60-1.99) 07/12/17 09:10 Calcium 10.6 mg/dL (8.6-10.3) H 07/17/17 04:21 Total Bilirubin 0.8 mg/dL (0.3-1.0) 07/17/17 04:21 AST 50 U/L (13-39) H 07/17/17 04:21 ALT 22 U/L (7-52) 07/17/17 04:21 Alkaline Phosphatase 171 U/L (34-104) H 07/17/17 04:21 Total Protein 8.1 gm/dL (6.0-8.3) 07/17/17 04:21 Albumin 2.2 gm/dL (4.2-5.5) L 07/17/17 04:21 Globulin 5.9 gm/dL 07/17/17 04:21 Albumin/Globulin Ratio 0.4 (1.0-1.8) L 07/17/17 04:21 Stool Leukocyte NO WBC SEEN 07/13/17 10:00 Vancomycin Trough 24.8 ug/mL (10-20) H 07/14/17 04:26 - Physical Exam Vitals and I&O: Vital Signs Temp 98.6 F 07/18/17 04:00 Pulse 107 07/18/17 06:57 Resp 26 07/18/17 06:00 BP 108/68 07/18/17 06:00 Pulse Ox 100 07/18/17 06:57 Intake & Output 07/17/17 07/18/17 07/18/17 18:59 06:59 18:59 Intake Total 1999 1997.5 Output Total 1700 1051 Balance 300 946.5 Weight (lbs) 45.359 kg 45.359 kg Intake: Intake, IV Amount 1100 1077.5 Colistimethate 100 mg In 100 100 Sodium Chloride 0.9% 100 ml @ 100 mls/hr IV Q12H [facility] Rx#:[id number] D5-0.45NS 1,000 ml @ 75 1000 977.5 mls/hr IV .[id number] [facility] Rx #:[id number] Tube Feeding 500 720 Other 400 200 Output: Urine 1500 1050 Stool 200 1 Other: # Bowel Movements 1 1 Stool Characteristics Brown Soft Brown Active Medications: Current Medications Acetaminophen (Tylenol 650mg/20.3ml Suspension) 640 mg GT Q4H PRN PRN Reason: Pain or Fever >101 Stop: 09/10/17 13:43 Last Admin: 07/17/17 18:02 Dose: 640 mg Albuterol Sulfate (Albuterol 2.5mg/3ml Neb Ud) 1.25 mg HHN Q6HRT [facility] Stop: 09/11/17 00:59 Last Admin: 07/18/17 06:56 Dose: 1.25 mg Artificial Tears (Artificial Tears Ophth Soln) 1 drop EACH EYE Q4HR [facility] Stop: 09/10/17 15:59 Last Admin: 07/18/17 04:10 Dose: 1 drop Ascorbic Acid (Vitamin C) 500 mg GT DAILY [facility] Stop: 09/10/17 14:59 Last Admin: 07/17/17 08:27 Dose: 500 mg Chlorhexidine Gluconate (Peridex) 15 ml MM 0800,2000 [facility] Stop: 09/10/17 19:59 Last Admin: 07/17/17 19:53 Dose: 15 ml Digoxin (Lanoxin) 0.125 mg GT MWF [facility] Stop: 09/10/17 14:59 Last Admin: 07/16/17 08:20 Dose: 0.125 mg Folic Acid (Folate) 1 mg GT DAILY [facility] Stop: 09/10/17 14:59 Last Admin: 07/17/17 08:26 Dose: 1 mg Heparin Sodium (Porcine) (Heparin) 5,000 units SUBQ Q12HR [facility] Stop: 09/10/17 20:59 Last Admin: 07/17/17 20:07 Dose: 5,000 units Hydroxyzine HCl (Atarax) 25 mg GT TID [facility] PRN Reason: Protocol Stop: 09/12/17 16:59 Last Admin: 07/17/17 20:07 Dose: 25 mg Dextrose/Sodium Chloride (D5-0.45ns) 1,000 mls @ 75 mls/hr IV .[id number] [facility] Stop: 09/11/17 14:14 Last Admin: 07/18/17 02:05 Dose: 75 mls/hr Colistimethate Sodium 100 mg/ (Sodium Chloride) 100 mls @ 100 mls/hr IV Q12H [facility] Stop: 09/13/17 13:59 Last Infusion: 07/18/17 03:01 Dose: Infused Ipratropium [place] (Atrovent Neb 0.5mg/2.5ml) 0.5 mg HHN Q6HRT [facility] Stop: 09/11/17 00:59 Last Admin: 07/18/17 06:57 Dose: 0.5 mg Lorazepam (Ativan) 0.5 mg GT Q4H PRN; Protocol PRN Reason: Anxiety Stop: 09/10/17 13:43 Last Admin: 07/16/17 02:08 Dose: 0.5 mg Metoclopramide HCl (Reglan) 5 mg GT DAILY [facility] Stop: 09/10/17 14:59 Last Admin: 07/17/17 08:27 Dose: 5 mg Miscellaneous (Vte Chemical Prophylaxis Screen/ Admission) 1 ea [facility] PRN PRN PRN Reason: PROTOCOL Stop: 09/10/17 19:00 Morphine Sulfate (Morphine) 15 mg GT BID [facility] Stop: 09/15/17 16:59 Last Admin: 07/17/17 17:42 Dose: Not Given Morphine Sulfate (Morphine) 2 mg IV Q4HR PRN PRN Reason: Pain (Severe) Stop: 09/15/17 09:32 Multivitamins/Vitamin C (Theragran) 1 tab GT DAILY [facility] Stop: 09/10/17 14:59 Last Admin: 07/17/17 08:26 Dose: 1 tab Ondansetron HCl (Zofran Odt) 4 mg SL Q6H PRN PRN Reason: Nausea Stop: 09/10/17 13:43 Pantoprazole Sodium (Protonix) 40 mg GT BIDAC [facility] Stop: 09/10/17 16:29 Last Admin: 07/18/17 06:47 Dose: 40 mg Senna (Senna) 8.6 mg GT HS [facility] Stop: 09/10/17 20:59 Last Admin: 07/17/17 20:08 Dose: 8.6 mg Thiamine HCl (Vitamin B1) 100 mg GT DAILY [facility] Stop: 09/10/17 14:59 Last Admin: 07/17/17 08:26 Dose: 100 mg Zinc Sulfate (Zinc Sulfate) 220 mg GT DAILY [facility] Stop: 09/10/17 14:59 Last Admin: 07/17/17 08:27 Dose: 220 mg - Procedures Procedures: Procedures Procedure Code Date RESPIRATORY VENTILATION, GREATER THAN 96 CONSECUTIVE HOURS [id number] 07/12/17 Nutritional Asmnt/Malnutr-PDOC - Dietary Evaluation Malnutrition Findings (Please click <Entered> for more info): Nutritional Asmnt/Malnutrition Start: 07/13/17 14: 18 Text: Status: Complete Freq: Document 07/13/17 14:18 [email or web address] (Rec: 07/13/17 14:25 LCHEN [email or web address]) Nutritional Asmnt/Malnutrition Patient General Information Nutritional Screening High Risk Consult Diagnosis PNA Pertinent Medical Hx/Surgical Hx PUD, GERD, respiratory failure , cirrhosis, anemia, dysphagia , a fib, PEG/GERD Subjective Information Consult received for ayaan < 12. Pt seen on vent via trach. Verified tube feeding running at 60ml/hr at this time. Spoke with RN, pt tolerated TF well. Pt had diarrhea from last night, c diff test ordered. Current Diet Order/ Nutrition Support FIbersource HN 60ml/hr x 20hr Pertinent Medications vit C, D5-0.45ns, folate, reglan, theragran, protonix, piperacillin, senna, vit B1, vancomycin, Zinc Pertinent Labs 07/12 Na 130, K 4.3, Cl 96, BUN 17, Cr 0.6, Glucose 90, Alb 2 .2 Nutritional Hx/Data Height 1.63 m Height (Calculated Centimeters) 162.6 Current Weight (lbs) 44.452 kg Weight (Calculated Kilograms) 44.5 Weight (Calculated Grams) 61179.1 [place] Body Weight 130 Body Mass Index (BMI) 16.8 Weight Status Underweight GI Symptoms GI Symptoms Diarrhea Last BM 07/13 Difficult in: None Skin Integrity/Comment: open wound to buttocks, ulceration to right calf, bruise to biletarl upper and lower extremities, discoloration to sacrum Estimated Nutritional Goals Calories/Kcals/Kg 23-27 Kcals Calculated 8016-1484 Protein g/k-1.2 Protein Calculated 54-65 Fluid: ml 1242-1458ml (1ml/kcal) Nutritional Problem 1. Problem Problem increased nutrition needs ( protein) Etiology increased metabolic demand for wound healing Signs/Symptoms: open wound, ulceration Intervention/Recommendation Comments 1. Continue with current TF regimen. It provides 1400kcal, 65g protein, 972ml free water , meeting 100% of nutritional needs 2. Monitor TF rate, tolerance, wt weekly, skin integrity and labs 3. F/U as moderate risk in 3-5 days, 03/31-04/02 Expected Outcomes/Goals Expected Outcomes/Goals 1. Pt to meet at least 75% of nutritional needs via nutrition support with tolerance 2. Wt stability, skin to remain intact, labs to approach WNL.
[2017-07-18] MEDS: Morphine 10 mg/5 ml 5mL UDC GT SCH ×2 (09:57→18:08)
--- NOTE | 2017-07-18 15:09 | Infectious Disease Prog Note ---
Infectious Disease Subjective - Review of Systems Service Date: 07/18/17 Subjective: Limitations on ventilator status post extremity. Infectious Disease Objective - Results Result Diagrams: 07/17/17 04:21 07/17/17 04:21 Recent Labs: Laboratory Last Values WBC 14.2 Th/cmm (4.8-10.8) H 07/17/17 04:21 RBC 2.91 Mil/cmm (4.30-5.70) L 07/17/17 04:21 Hgb 9.5 gm/dL (12-16) L 07/17/17 04:21 Hct 28.3 % (41.0-60) L 07/17/17 04:21 MCV 97.3 fl (80-99) 07/17/17 04:21 MCH 32.8 pg (26.0-30.0) H 07/17/17 04:21 MCHC Differential 33.7 pg (28.0-36.0) 07/17/17 04:21 RDW 22.2 % (11.5-20.0) H 07/17/17 04:21 Plt Count 165 Th/cmm (150-400) 07/17/17 04:21 MPV 8.4 fl 07/17/17 04:21 Neutrophils % 80.1 % (40.0-80.0) H 07/12/17 04:20 Band Neutrophils % 6 % (0-10) 07/11/17 19:46 Lymphocytes % 9.0 % (20.0-50.0) L 07/12/17 04:20 Monocytes % 5.1 % (2.0-10.0) 07/12/17 04:20 Eosinophils % 5.7 % (0.0-5.0) H 07/12/17 04:20 Basophils % 0.1 % (0.0-2.0) 07/12/17 04:20 Neutrophils (Manual) 73 % (40-80) 07/17/17 04:21 Lymphocytes 5 % (20-50) L 07/17/17 04:21 Monocytes 2 % (2-10) 07/17/17 04:21 Eosinophils 20 % (0-5) H 07/17/17 04:21 Basophils 0 % (0-3) 07/11/17 19:46 Platelet Estimate ADEQUATE (NORMAL) 07/17/17 04:21 Platelet Morphology NORMAL (NORMAL) 07/11/17 19:46 Anisocytosis 1+ 07/11/17 19:46 RBC Morph Micro Appear ABNORMAL (NORMAL) 07/11/17 19:46 Specimen Source ARTERIAL 07/12/17 06:00 Sample Site Right Radial 07/12/17 06:00 pH 7.45 (7.35-7.45) 07/12/17 06:00 pCO2 50.0 mmHg (35.0-45.0) H 07/12/17 06:00 pO2 100.0 mmHg (80.0-100.0) 07/12/17 06:00 HCO3 32.2 mEq/L (20.0-26.0) H 07/12/17 06:00 Base Excess 9.3 mEq/L (-3.0-3.0) H 07/12/17 06:00 O2 Saturation 98.0 % (92.0-100.0) 07/12/17 06:00 Jose Test Positive 07/12/17 06:00 Vent Rate 24 07/12/17 06:00 Inspired O2 40 07/12/17 06:00 Tidal Volume NA 07/12/17 06:00 PEEP 5 07/12/17 06:00 Pressure (ins/psv/peep) 25 07/12/17 06:00 Critical Value SC 07/12/17 06:00 Sodium 133 mEq/L (136-145) L 07/17/17 04:21 Potassium 4.5 mEq/L (3.5-5.1) 07/17/17 04:21 Chloride 101 mEq/L (98-107) 07/17/17 04:21 Carbon Dioxide 30.5 mEq/L (21.0-31.0) 07/17/17 04:21 Anion Gap 6.0 (7.0-16.0) L 07/17/17 04:21 BUN 12 mg/dL (7-25) 07/17/17 04:21 Creatinine 0.5 mg/dL (0.7-1.3) L 07/17/17 04:21 Est GFR ( Amer) > 60.0 ml/min (>90) 07/17/17 04:21 Est GFR (Non-Af Amer) > 60.0 ml/min 07/17/17 04:21 BUN/Creatinine Ratio 24.0 07/17/17 04:21 Glucose 114 mg/dL (70-105) H 07/17/17 04:21 POC Glucose 99 MG/DL (70 - 105) 07/15/17 13:48 Whole Bld Lactic Acid 1.00 mmol/L (0.60-1.99) 07/12/17 09:10 Calcium 10.6 mg/dL (8.6-10.3) H 07/17/17 04:21 Total Bilirubin 0.8 mg/dL (0.3-1.0) 07/17/17 04:21 AST 50 U/L (13-39) H 07/17/17 04:21 ALT 22 U/L (7-52) 07/17/17 04:21 Alkaline Phosphatase 171 U/L (34-104) H 07/17/17 04:21 Total Protein 8.1 gm/dL (6.0-8.3) 07/17/17 04:21 Albumin 2.2 gm/dL (4.2-5.5) L 07/17/17 04:21 Globulin 5.9 gm/dL 07/17/17 04:21 Albumin/Globulin Ratio 0.4 (1.0-1.8) L 07/17/17 04:21 Stool Leukocyte NO WBC SEEN 07/13/17 10:00 Vancomycin Trough 24.8 ug/mL (10-20) H 07/14/17 04:26 - Physical Exam Vitals and I&O: Vital Signs Temp 101.6 F 07/18/17 12:00 Pulse 121 07/18/17 13:10 Resp 30 07/18/17 13:00 BP 114/62 07/18/17 13:00 Pulse Ox 100 07/18/17 13:10 Intake & Output 07/17/17 07/18/17 07/18/17 18:59 06:59 18:59 Intake Total 2000 1997.5 Output Total 1700 1051 Balance 300 946.5 Weight (lbs) 45.359 kg 45.359 kg Intake: Intake, IV Amount 1100 1077.5 Colistimethate 100 mg In 100 100 Sodium Chloride 0.9% 100 ml @ 100 mls/hr IV Q12H [facility] Rx#:[id number] D5-0.45NS 1,000 ml @ 75 1000 977.5 mls/hr IV .[id number] [facility] Rx #:[id number] Tube Feeding 500 720 Other 400 200 Output: Urine 1500 1050 Stool 200 1 Other: # Bowel Movements 1 1 Stool Characteristics Brown Soft Soft Brown Brown Active Medications: Current Medications Acetaminophen (Tylenol 650mg/20.3ml Suspension) 640 mg GT Q4H PRN PRN Reason: Pain or Fever >101 Stop: 09/10/17 13:43 Last Admin: 07/18/17 12:15 Dose: 640 mg Albuterol Sulfate (Albuterol 2.5mg/3ml Neb Ud) 1.25 mg HHN Q6HRT [facility] Stop: 09/11/17 00:59 Last Admin: 07/18/17 13:09 Dose: 1.25 mg Artificial Tears (Artificial Tears Ophth Soln) 1 drop EACH EYE Q4HR [facility] Stop: 09/10/17 15:59 Last Admin: 07/18/17 10:12 Dose: 1 drop Ascorbic Acid (Vitamin C) 500 mg GT DAILY [facility] Stop: 09/10/17 14:59 Last Admin: 07/18/17 10:24 Dose: 500 mg Chlorhexidine Gluconate (Peridex) 15 ml MM 0800,2000 [facility] Stop: 09/10/17 19:59 Last Admin: 07/18/17 10:12 Dose: 15 ml Digoxin (Lanoxin) 0.125 mg GT MWF [facility] Stop: 09/10/17 14:59 Last Admin: 07/16/17 08:20 Dose: 0.125 mg Folic Acid (Folate) 1 mg GT DAILY [facility] Stop: 09/10/17 14:59 Last Admin: 07/18/17 10:24 Dose: 1 mg Heparin Sodium (Porcine) (Heparin) 5,000 units SUBQ Q12HR [facility] Stop: 09/10/17 20:59 Last Admin: 07/18/17 10:25 Dose: 5,000 units Hydroxyzine HCl (Atarax) 25 mg GT TID [facility] PRN Reason: Protocol Stop: 09/12/17 16:59 Last Admin: 07/18/17 09:14 Dose: 25 mg Dextrose/Sodium Chloride (D5-0.45ns) 1,000 mls @ 75 mls/hr IV .[id number] [facility] Stop: 09/11/17 14:14 Last Admin: 07/18/17 02:05 Dose: 75 mls/hr Colistimethate Sodium 100 mg/ (Sodium Chloride) 100 mls @ 100 mls/hr IV Q12H [facility] Stop: 09/13/17 13:59 Last Admin: 07/18/17 14:41 Dose: 100 mls/hr Ipratropium [place] (Atrovent Neb 0.5mg/2.5ml) 0.5 mg HHN Q6HRT [facility] Stop: 09/11/17 00:59 Last Admin: 07/18/17 13:09 Dose: 0.5 mg Lorazepam (Ativan) 0.5 mg GT Q4H PRN; Protocol PRN Reason: Anxiety Stop: 09/10/17 13:43 Last Admin: 07/16/17 02:08 Dose: 0.5 mg Metoclopramide HCl (Reglan) 5 mg GT DAILY [facility] Stop: 09/10/17 14:59 Last Admin: 07/18/17 10:23 Dose: 5 mg Miscellaneous (Vte Chemical Prophylaxis Screen/ Admission) 1 ea MC PRN PRN PRN Reason: PROTOCOL Stop: 09/10/17 19:00 Morphine Sulfate (Morphine) 15 mg GT BID [facility] Stop: 09/15/17 16:59 Last Admin: 07/17/17 17:42 Dose: Not Given Morphine Sulfate (Morphine) 2 mg IV Q4HR PRN PRN Reason: Pain (Severe) Stop: 09/15/17 09:32 Multivitamins/Vitamin C (Theragran) 1 tab GT DAILY [facility] Stop: 09/10/17 14:59 Last Admin: 07/18/17 10:23 Dose: 1 tab Ondansetron HCl (Zofran Odt) 4 mg SL Q6H PRN PRN Reason: Nausea Stop: 09/10/17 13:43 Pantoprazole Sodium (Protonix) 40 mg GT BIDAC [facility] Stop: 09/10/17 16:29 Last Admin: 07/18/17 06:47 Dose: 40 mg Senna (Senna) 8.6 mg GT HS [facility] Stop: 09/10/17 20:59 Last Admin: 07/17/17 20:08 Dose: 8.6 mg Thiamine HCl (Vitamin B1) 100 mg GT DAILY [facility] Stop: 09/10/17 14:59 Last Admin: 07/18/17 10:24 Dose: 100 mg Zinc Sulfate (Zinc Sulfate) 220 mg GT DAILY [facility] Stop: 09/10/17 14:59 Last Admin: 07/18/17 10:24 Dose: 220 mg General: no acute distress, well developed, well nourished HEENT: atraumatic, normocephalic, PERRLA Neck: supple Cardiovascular: S1S2, regular Lungs: clear to auscultation bilaterally, clear to percussion Abdomen: soft, no tender, no distended Extremities: no cyanosis, no clubbing, no edema Neurological: awake, alert, oriented Skin: intact - Procedures Procedures: Procedures Procedure Code Date RESPIRATORY VENTILATION, GREATER THAN 96 CONSECUTIVE HOURS [id number] 07/12/17 Infectious Disease Assmt/Plan - Assessment Assessment: Impression: 1. Diarrhea. stool for C diff : neg. 2. Pneumonia. MDRO pseudomonas. 3. Leukocytosis. 4. Cirrhosis. 5. Afib, currently NSR. 6. h/o alcohol abuse. 7. Protein calorie malnutrition. 8. decubitus, sacral. There is no sign of infection,. 9. left leg decubitus ulcer. - Plan Plan: Continue colistin. Nutritional Asmnt/Malnutr-PDOC - Dietary Evaluation Malnutrition Findings (Please click <Entered> for more info): Nutritional Asmnt/Malnutrition Start: 07/13/17 14: 18 Text: Status: Complete Freq: Document 07/13/17 14:18 LCHENG (Rec: 07/13/17 14:25 [facility] [email or web address]) Nutritional Asmnt/Malnutrition Patient General Information Nutritional Screening High Risk Consult Diagnosis PNA Pertinent Medical Hx/Surgical Hx PUD, GERD, respiratory failure , cirrhosis, anemia, dysphagia , a fib, PEG/GERD Subjective Information Consult received for ayaan < 12. Pt seen on vent via trach. Verified tube feeding running at 60ml/hr at this time. Spoke with RN, pt tolerated TF well. Pt had diarrhea from last night, c diff test ordered. Current Diet Order/ Nutrition Support FI[employer]ource HN 60ml/hr x 20hr Pertinent Medications vit C, D5-0.45ns, folate, reglan, theragran, protonix, piperacillin, senna, vit B1, vancomycin, Zinc Pertinent Labs 07/12 Na 130, K 4.3, Cl 96, BUN 17, Cr 0.6, Glucose 90, Alb 2 .2 Nutritional Hx/Data Height 1.63 m Height (Calculated Centimeters) 162.6 Current Weight (lbs) 44.452 kg Weight (Calculated Kilograms) 44.5 Weight (Calculated Grams) 61440.1 [place] Body Weight 130 Body Mass Index (BMI) 16.8 Weight Status Underweight GI Symptoms GI Symptoms Diarrhea Last BM 07/13 Difficult in: None Skin Integrity/Comment: open wound to buttocks, ulceration to right calf, bruise to biletarl upper and lower extremities, discoloration to sacrum Estimated Nutritional Goals Calories/Kcals/Kg 23-27 Kcals Calculated 9247-8522 Protein g/k-1.2 Protein Calculated 54-65 Fluid: ml 1242-1458ml (1ml/kcal) Nutritional Problem 1. Problem Problem increased nutrition needs ( protein) Etiology increased metabolic demand for wound healing Signs/Symptoms: open wound, ulceration Intervention/Recommendation Comments 1. Continue with current TF regimen. It provides 1400kcal, 65g protein, 972ml free water , meeting 100% of nutritional needs 2. Monitor TF rate, tolerance, wt weekly, skin integrity and labs 3. F/U as moderate risk in 3-5 days, 03/31-04/02 Expected Outcomes/Goals Expected Outcomes/Goals 1. Pt to meet at least 75% of nutritional needs via nutrition support with tolerance 2. Wt stability, skin to remain intact, labs to approach WNL.
[2017-07-19] MEDS: Ipratropium Neb 0.5 mg/2.5 mL UD HHN SCH ×4 (00:20→19:48)
[2017-07-19] MEDS: Albuterol Nebulizer 2.5mg/3mL HHN SCH ×4 (00:20→19:47)
[2017-07-19] MEDS: Polyvinyl Alcohol Ophth Soln 15 mL Bottle EACH EYE SCH ×6 (01:00→20:45)
[2017-07-19] MEDS: Morphine Sulfate 4 mg/mL 1mL Syr IV PRN ×2 (01:43→17:44)
--- NOTE | 2017-07-19 08:43 | Diagnostic Imaging Report ---
Portable chest x-ray HISTORY: Shortness of breath There is a poor inspiration. The heart appears enlarged. Accentuation of interstitial markings. A degree of congestive heart failure cannot be excluded. No focal processes. IMPRESSION: 1. Cardiomegaly 2. Poor inspiration with accentuation of the interstitial lung markings. A mild degree of congestive heart failure cannot be excluded. Clinical correlation is needed.
[2017-07-19] MEDS: Multivitamin Tab GT SCH (09:56)
[2017-07-19] MEDS: Pantoprazole 40 mg/Packet GT SCH ×2 (09:56→17:44)
[2017-07-19] MEDS: Chlorhexidine Gluconate 0.12% 15mL Mouthwash MM SCH ×2 (09:56→21:01)
[2017-07-19] MEDS: Morphine 10 mg/5 ml 5mL UDC GT SCH (11:10)
[2017-07-19] MEDS: D5-0.45NS 1,000 ML IV SCH (11:30)
--- NOTE | 2017-07-19 11:34 | General Progress Note ---
Subjective - Review of Systems Events since last encounter: on vent in no acute distress Objective - Results Result Diagrams: 07/17/17 04:21 07/17/17 04:21 Recent Labs: Laboratory Last Values WBC 14.2 Th/cmm (4.8-10.8) H 07/17/17 04:21 RBC 2.91 Mil/cmm (4.30-5.70) L 07/17/17 04:21 Hgb 9.5 gm/dL (12-16) L 07/17/17 04:21 Hct 28.3 % (41.0-60) L 07/17/17 04:21 MCV 97.3 fl (80-99) 07/17/17 04:21 MCH 32.8 pg (26.0-30.0) H 07/17/17 04:21 MCHC Differential 33.7 pg (28.0-36.0) 07/17/17 04:21 RDW 22.2 % (11.5-20.0) H 07/17/17 04:21 Plt Count 165 Th/cmm (150-400) 07/17/17 04:21 MPV 8.4 fl 07/17/17 04:21 Neutrophils % 80.1 % (40.0-80.0) H 07/12/17 04:20 Band Neutrophils % 6 % (0-10) 07/11/17 19:46 Lymphocytes % 9.0 % (20.0-50.0) L 07/12/17 04:20 Monocytes % 5.1 % (2.0-10.0) 07/12/17 04:20 Eosinophils % 5.7 % (0.0-5.0) H 07/12/17 04:20 Basophils % 0.1 % (0.0-2.0) 07/12/17 04:20 Neutrophils (Manual) 73 % (40-80) 07/17/17 04:21 Lymphocytes 5 % (20-50) L 07/17/17 04:21 Monocytes 2 % (2-10) 07/17/17 04:21 Eosinophils 20 % (0-5) H 07/17/17 04:21 Basophils 0 % (0-3) 07/11/17 19:46 Platelet Estimate ADEQUATE (NORMAL) 07/17/17 04:21 Platelet Morphology NORMAL (NORMAL) 07/11/17 19:46 Anisocytosis 1+ 07/11/17 19:46 RBC Morph Micro Appear ABNORMAL (NORMAL) 07/11/17 19:46 Specimen Source ARTERIAL 07/12/17 06:00 Sample Site Right Radial 07/12/17 06:00 pH 7.45 (7.35-7.45) 07/12/17 06:00 pCO2 50.0 mmHg (35.0-45.0) H 07/12/17 06:00 pO2 100.0 mmHg (80.0-100.0) 07/12/17 06:00 HCO3 32.2 mEq/L (20.0-26.0) H 07/12/17 06:00 Base Excess 9.3 mEq/L (-3.0-3.0) H 07/12/17 06:00 O2 Saturation 98.0 % (92.0-100.0) 07/12/17 06:00 Jose Test Positive 07/12/17 06:00 Vent Rate 24 07/12/17 06:00 Inspired O2 40 07/12/17 06:00 Tidal Volume NA 07/12/17 06:00 PEEP 5 07/12/17 06:00 Pressure (ins/psv/peep) 25 07/12/17 06:00 Critical Value SC 07/12/17 06:00 Sodium 133 mEq/L (136-145) L 07/17/17 04:21 Potassium 4.5 mEq/L (3.5-5.1) 07/17/17 04:21 Chloride 101 mEq/L (98-107) 07/17/17 04:21 Carbon Dioxide 30.5 mEq/L (21.0-31.0) 07/17/17 04:21 Anion Gap 6.0 (7.0-16.0) L 07/17/17 04:21 BUN 12 mg/dL (7-25) 07/17/17 04:21 Creatinine 0.5 mg/dL (0.7-1.3) L 07/17/17 04:21 Est GFR ( Amer) > 60.0 ml/min (>90) 07/17/17 04:21 Est GFR (Non-Af Amer) > 60.0 ml/min 07/17/17 04:21 BUN/Creatinine Ratio 24.0 07/17/17 04:21 Glucose 114 mg/dL (70-105) H 07/17/17 04:21 POC Glucose 99 MG/DL (70 - 105) 07/15/17 13:48 Whole Bld Lactic Acid 1.00 mmol/L (0.60-1.99) 07/12/17 09:10 Calcium 10.6 mg/dL (8.6-10.3) H 07/17/17 04:21 Total Bilirubin 0.8 mg/dL (0.3-1.0) 07/17/17 04:21 AST 50 U/L (13-39) H 07/17/17 04:21 ALT 22 U/L (7-52) 07/17/17 04:21 Alkaline Phosphatase 171 U/L (34-104) H 07/17/17 04:21 Total Protein 8.1 gm/dL (6.0-8.3) 07/17/17 04:21 Albumin 2.2 gm/dL (4.2-5.5) L 07/17/17 04:21 Globulin 5.9 gm/dL 07/17/17 04:21 Albumin/Globulin Ratio 0.4 (1.0-1.8) L 07/17/17 04:21 Stool Leukocyte NO WBC SEEN 07/13/17 10:00 Vancomycin Trough 24.8 ug/mL (10-20) H 07/14/17 04:26 - Physical Exam Vitals and I&O: Vital Signs Temp 99.6 F 07/19/17 09:00 Pulse 102 07/19/17 11:01 Resp 24 07/19/17 11:00 BP 117/56 07/19/17 11:00 Pulse Ox 100 07/19/17 11:01 Intake & Output 07/18/17 07/19/17 07/19/17 18:59 06:59 18:59 Intake Total 580 1680 1200 Output Total 1600 700 300 Balance -1020 980 900 Weight (lbs) 43.454 kg 43.454 kg 46.266 kg Intake: Intake, IV Amount 100 1000 1000 Colistimethate 100 mg In 100 Sodium Chloride 0.9% 100 ml @ 100 mls/hr IV Q12H [facility] Rx#:[id number] D5-0.45NS 1,000 ml @ 75 1000 1000 mls/hr IV .[id number] [facility] Rx #:[id number] Tube Feeding 480 480 200 Other 200 Output: Urine 1100 700 300 Stool 500 Other: # Bowel Movements 1 Stool Characteristics Soft Soft Brown Brown Active Medications: Current Medications Acetaminophen (Tylenol 650mg/20.3ml Suspension) 640 mg GT Q4H PRN PRN Reason: Pain or Fever >101 Stop: 09/10/17 13:43 Last Admin: 07/19/17 01:42 Dose: 640 mg Albuterol Sulfate (Albuterol 2.5mg/3ml Neb Ud) 1.25 mg HHN Q6HRT [facility] Stop: 09/11/17 00:59 Last Admin: 07/19/17 07:04 Dose: 1.25 mg Artificial Tears (Artificial Tears Ophth Soln) 1 drop EACH EYE Q4HR [facility] Stop: 09/10/17 15:59 Last Admin: 07/19/17 11:31 Dose: 1 drop Ascorbic Acid (Vitamin C) 500 mg GT DAILY [facility] Stop: 09/10/17 14:59 Last Admin: 07/19/17 09:56 Dose: 500 mg Chlorhexidine Gluconate (Peridex) 15 ml MM 0800,2000 [facility] Stop: 09/10/17 19:59 Last Admin: 07/19/17 09:56 Dose: 15 ml Digoxin (Lanoxin) 0.125 mg GT MWF [facility] Stop: 09/10/17 14:59 Last Admin: 07/19/17 09:55 Dose: 0.125 mg Folic Acid (Folate) 1 mg GT DAILY [facility] Stop: 09/10/17 14:59 Last Admin: 07/19/17 09:56 Dose: 1 mg Heparin Sodium (Porcine) (Heparin) 5,000 units SUBQ Q12HR [facility] Stop: 09/10/17 20:59 Last Admin: 07/19/17 09:54 Dose: 5,000 units Hydroxyzine HCl (Atarax) 25 mg GT TID [facility] PRN Reason: Protocol Stop: 09/12/17 16:59 Last Admin: 07/19/17 09:55 Dose: 25 mg Dextrose/Sodium Chloride (D5-0.45ns) 1,000 mls @ 75 mls/hr IV .[id number] [facility] Stop: 09/11/17 14:14 Last Admin: 07/19/17 11:30 Dose: 75 mls/hr Colistimethate Sodium 100 mg/ (Sodium Chloride) 100 mls @ 100 mls/hr IV Q12H [facility] Stop: 09/13/17 13:59 Last Admin: 07/19/17 01:42 Dose: 100 mls/hr Ipratropium [place] (Atrovent Neb 0.5mg/2.5ml) 0.5 mg HHN Q6HRT [facility] Stop: 09/11/17 00:59 Last Admin: 07/19/17 07:04 Dose: 0.5 mg Lorazepam (Ativan) 0.5 mg GT Q4H PRN; Protocol PRN Reason: Anxiety Stop: 09/10/17 13:43 Last Admin: 07/16/17 02:08 Dose: 0.5 mg Metoclopramide HCl (Reglan) 5 mg GT DAILY [facility] Stop: 09/10/17 14:59 Last Admin: 07/19/17 09:54 Dose: 5 mg Miscellaneous (Vte Chemical Prophylaxis Screen/ Admission) 1 ea [facility] PRN PRN PRN Reason: PROTOCOL Stop: 09/10/17 19:00 Morphine Sulfate (Morphine) 15 mg GT BID [facility] Stop: 09/15/17 16:59 Last Admin: 07/19/17 11:10 Dose: Not Given Morphine Sulfate (Morphine) 2 mg IV Q4HR PRN PRN Reason: Pain (Severe) Stop: 09/15/17 09:32 Last Admin: 07/19/17 01:43 Dose: 2 mg Multivitamins/Vitamin C (Theragran) 1 tab GT DAILY [facility] Stop: 09/10/17 14:59 Last Admin: 07/19/17 09:56 Dose: 1 tab Ondansetron HCl (Zofran Odt) 4 mg SL Q6H PRN PRN Reason: Nausea Stop: 09/10/17 13:43 Pantoprazole Sodium (Protonix) 40 mg GT BIDAC [facility] Stop: 09/10/17 16:29 Last Admin: 07/19/17 09:56 Dose: 40 mg Senna (Senna) 8.6 mg GT HS [facility] Stop: 09/10/17 20:59 Last Admin: 07/18/17 21:07 Dose: 8.6 mg Thiamine HCl (Vitamin B1) 100 mg GT DAILY [facility] Stop: 09/10/17 14:59 Last Admin: 07/19/17 11:30 Dose: 100 mg Zinc Sulfate (Zinc Sulfate) 220 mg GT DAILY [facility] Stop: 09/10/17 14:59 Last Admin: 07/19/17 09:54 Dose: 220 mg - Procedures Procedures: Procedures Procedure Code Date RESPIRATORY VENTILATION, GREATER THAN 96 CONSECUTIVE HOURS [id number] 07/12/17 Nutritional Asmnt/Malnutr-PDOC - Dietary Evaluation Malnutrition Findings (Please click <Entered> for more info): Nutritional Asmnt/Malnutrition Start: 07/13/17 14: 18 Text: Status: Complete Freq: Document 07/13/17 14:18 HEN (Rec: 07/13/17 14:25 [email or web address] Nutritional Asmnt/Malnutrition Patient General Information Nutritional Screening High Risk Consult Diagnosis PNA Pertinent Medical Hx/Surgical Hx PUD, GERD, respiratory failure , cirrhosis, anemia, dysphagia , a fib, PEG/GERD Subjective Information Consult received for ayaan < 12. Pt seen on vent via trach. Verified tube feeding running at 60ml/hr at this time. Spoke with RN, pt tolerated TF well. Pt had diarrhea from last night, c diff test ordered. Current Diet Order/ Nutrition Support FIbersource HN 60ml/hr x 20hr Pertinent Medications vit C, D5-0.45ns, folate, reglan, theragran, protonix, piperacillin, senna, vit B1, vancomycin, Zinc Pertinent Labs 07/12 Na 130, K 4.3, Cl 96, BUN 17, Cr 0.6, Glucose 90, Alb 2 .2 Nutritional Hx/Data Height 1.63 m Height (Calculated Centimeters) 162.6 Current Weight (lbs) 44.452 kg Weight (Calculated Kilograms) 44.5 Weight (Calculated Grams) 83311.1 [place] Body Weight 130 Body Mass Index (BMI) 16.8 Weight Status Underweight GI Symptoms GI Symptoms Diarrhea Last BM 07/13 Difficult in: None Skin Integrity/Comment: open wound to buttocks, ulceration to right calf, bruise to biletarl upper and lower extremities, discoloration to sacrum Estimated Nutritional Goals Calories/Kcals/Kg 23-27 Kcals Calculated 3337-3276 Protein g/k-1.2 Protein Calculated 54-65 Fluid: ml 1242-1458ml (1ml/kcal) Nutritional Problem 1. Problem Problem increased nutrition needs ( protein) Etiology increased metabolic demand for wound healing Signs/Symptoms: open wound, ulceration Intervention/Recommendation Comments 1. Continue with current TF regimen. It provides 1400kcal, 65g protein, 972ml free water , meeting 100% of nutritional needs 2. Monitor TF rate, tolerance, wt weekly, skin integrity and labs 3. F/U as moderate risk in 3-5 days, 03/31-04/02 Expected Outcomes/Goals Expected Outcomes/Goals 1. Pt to meet at least 75% of nutritional needs via nutrition support with tolerance 2. Wt stability, skin to remain intact, labs to approach WNL.
--- NOTE | 2017-07-19 13:37 | Infectious Disease Prog Note ---
Infectious Disease Subjective - Review of Systems Service Date: 07/19/17 Subjective: Remains on ventilator, status post tracheostomy. Infectious Disease Objective - Results Result Diagrams: 07/17/17 04:21 07/17/17 04:21 Recent Labs: Laboratory Last Values WBC 14.2 Th/cmm (4.8-10.8) H 07/17/17 04:21 RBC 2.91 Mil/cmm (4.30-5.70) L 07/17/17 04:21 Hgb 9.5 gm/dL (12-16) L 07/17/17 04:21 Hct 28.3 % (41.0-60) L 07/17/17 04:21 MCV 97.3 fl (80-99) 07/17/17 04:21 MCH 32.8 pg (26.0-30.0) H 07/17/17 04:21 MCHC Differential 33.7 pg (28.0-36.0) 07/17/17 04:21 RDW 22.2 % (11.5-20.0) H 07/17/17 04:21 Plt Count 165 Th/cmm (150-400) 07/17/17 04:21 MPV 8.4 fl 07/17/17 04:21 Neutrophils % 80.1 % (40.0-80.0) H 07/12/17 04:20 Band Neutrophils % 6 % (0-10) 07/11/17 19:46 Lymphocytes % 9.0 % (20.0-50.0) L 07/12/17 04:20 Monocytes % 5.1 % (2.0-10.0) 07/12/17 04:20 Eosinophils % 5.7 % (0.0-5.0) H 07/12/17 04:20 Basophils % 0.1 % (0.0-2.0) 07/12/17 04:20 Neutrophils (Manual) 73 % (40-80) 07/17/17 04:21 Lymphocytes 5 % (20-50) L 07/17/17 04:21 Monocytes 2 % (2-10) 07/17/17 04:21 Eosinophils 20 % (0-5) H 07/17/17 04:21 Basophils 0 % (0-3) 07/11/17 19:46 Platelet Estimate ADEQUATE (NORMAL) 07/17/17 04:21 Platelet Morphology NORMAL (NORMAL) 07/11/17 19:46 Anisocytosis 1+ 07/11/17 19:46 RBC Morph Micro Appear ABNORMAL (NORMAL) 07/11/17 19:46 Specimen Source ARTERIAL 07/12/17 06:00 Sample Site Right Radial 07/12/17 06:00 pH 7.45 (7.35-7.45) 07/12/17 06:00 pCO2 50.0 mmHg (35.0-45.0) H 07/12/17 06:00 pO2 100.0 mmHg (80.0-100.0) 07/12/17 06:00 HCO3 32.2 mEq/L (20.0-26.0) H 07/12/17 06:00 Base Excess 9.3 mEq/L (-3.0-3.0) H 07/12/17 06:00 O2 Saturation 98.0 % (92.0-100.0) 07/12/17 06:00 Jose Test Positive 07/12/17 06:00 Vent Rate 24 07/12/17 06:00 Inspired O2 40 07/12/17 06:00 Tidal Volume NA 07/12/17 06:00 PEEP 5 07/12/17 06:00 Pressure (ins/psv/peep) 25 07/12/17 06:00 Critical Value SC 07/12/17 06:00 Sodium 133 mEq/L (136-145) L 07/17/17 04:21 Potassium 4.5 mEq/L (3.5-5.1) 07/17/17 04:21 Chloride 101 mEq/L (98-107) 07/17/17 04:21 Carbon Dioxide 30.5 mEq/L (21.0-31.0) 07/17/17 04:21 Anion Gap 6.0 (7.0-16.0) L 07/17/17 04:21 BUN 12 mg/dL (7-25) 07/17/17 04:21 Creatinine 0.5 mg/dL (0.7-1.3) L 07/17/17 04:21 Est GFR ( Amer) > 60.0 ml/min (>90) 07/17/17 04:21 Est GFR (Non-Af Amer) > 60.0 ml/min 07/17/17 04:21 BUN/Creatinine Ratio 24.0 07/17/17 04:21 Glucose 114 mg/dL (70-105) H 07/17/17 04:21 POC Glucose 99 MG/DL (70 - 105) 07/15/17 13:48 Whole Bld Lactic Acid 1.00 mmol/L (0.60-1.99) 07/12/17 09:10 Calcium 10.6 mg/dL (8.6-10.3) H 07/17/17 04:21 Total Bilirubin 0.8 mg/dL (0.3-1.0) 07/17/17 04:21 AST 50 U/L (13-39) H 07/17/17 04:21 ALT 22 U/L (7-52) 07/17/17 04:21 Alkaline Phosphatase 171 U/L (34-104) H 07/17/17 04:21 Total Protein 8.1 gm/dL (6.0-8.3) 07/17/17 04:21 Albumin 2.2 gm/dL (4.2-5.5) L 07/17/17 04:21 Globulin 5.9 gm/dL 07/17/17 04:21 Albumin/Globulin Ratio 0.4 (1.0-1.8) L 07/17/17 04:21 Stool Leukocyte NO WBC SEEN 07/13/17 10:00 Vancomycin Trough 24.8 ug/mL (10-20) H 07/14/17 04:26 - Physical Exam Vitals and I&O: Vital Signs Temp 99.2 F 07/19/17 12:00 Pulse 108 07/19/17 13:00 Resp 24 07/19/17 13:00 BP 120/68 07/19/17 13:00 Pulse Ox 100 07/19/17 13:00 Intake & Output 07/18/17 07/19/17 07/19/17 18:59 06:59 18:59 Intake Total 580 1680 1200 Output Total 1600 700 460 Balance -1020 980 740 Weight (lbs) 43.454 kg 43.454 kg 46.266 kg Intake: Intake, IV Amount 100 1000 1000 Colistimethate 100 mg In 100 Sodium Chloride 0.9% 100 ml @ 100 mls/hr IV Q12H [facility] Rx#:[id number] D5-0.45NS 1,000 ml @ 75 1000 1000 mls/hr IV .[id number] [facility] Rx #:[id number] Tube Feeding 480 480 200 Other 200 Output: Urine 1100 700 460 Stool 500 Other: # Bowel Movements 1 Stool Characteristics Soft Soft Brown Brown Active Medications: Current Medications Acetaminophen (Tylenol 650mg/20.3ml Suspension) 640 mg GT Q4H PRN PRN Reason: Pain or Fever >101 Stop: 09/10/17 13:43 Last Admin: 07/19/17 01:42 Dose: 640 mg Albuterol Sulfate (Albuterol 2.5mg/3ml Neb Ud) 1.25 mg HHN Q6HRT [facility] Stop: 09/11/17 00:59 Last Admin: 07/19/17 07:04 Dose: 1.25 mg Artificial Tears (Artificial Tears Ophth Soln) 1 drop EACH EYE Q4HR [facility] Stop: 09/10/17 15:59 Last Admin: 07/19/17 11:31 Dose: 1 drop Ascorbic Acid (Vitamin C) 500 mg GT DAILY [facility] Stop: 09/10/17 14:59 Last Admin: 07/19/17 09:56 Dose: 500 mg Chlorhexidine Gluconate (Peridex) 15 ml MM 0800,2000 [facility] Stop: 09/10/17 19:59 Last Admin: 07/19/17 09:56 Dose: 15 ml Digoxin (Lanoxin) 0.125 mg GT MWF [facility] Stop: 09/10/17 14:59 Last Admin: 07/19/17 09:55 Dose: 0.125 mg Folic Acid (Folate) 1 mg GT DAILY [facility] Stop: 09/10/17 14:59 Last Admin: 07/19/17 09:56 Dose: 1 mg Heparin Sodium (Porcine) (Heparin) 5,000 units SUBQ Q12HR [facility] Stop: 09/10/17 20:59 Last Admin: 07/19/17 09:54 Dose: 5,000 units Hydroxyzine HCl (Atarax) 25 mg GT TID [facility] PRN Reason: Protocol Stop: 09/12/17 16:59 Last Admin: 07/19/17 09:55 Dose: 25 mg Dextrose/Sodium Chloride (D5-0.45ns) 1,000 mls @ 75 mls/hr IV .[id number] [facility] Stop: 09/11/17 14:14 Last Admin: 07/19/17 11:30 Dose: 75 mls/hr Colistimethate Sodium 100 mg/ (Sodium Chloride) 100 mls @ 100 mls/hr IV Q12H [facility] Stop: 09/13/17 13:59 Last Admin: 07/19/17 01:42 Dose: 100 mls/hr Ipratropium [place] (Atrovent Neb 0.5mg/2.5ml) 0.5 mg HHN Q6HRT [facility] Stop: 09/11/17 00:59 Last Admin: 07/19/17 07:04 Dose: 0.5 mg Lorazepam (Ativan) 0.5 mg GT Q4H PRN; Protocol PRN Reason: Anxiety Stop: 09/10/17 13:43 Last Admin: 07/16/17 02:08 Dose: 0.5 mg Metoclopramide HCl (Reglan) 5 mg GT DAILY [facility] Stop: 09/10/17 14:59 Last Admin: 07/19/17 09:54 Dose: 5 mg Miscellaneous (Vte Chemical Prophylaxis Screen/ Admission) 1 ea [facility] PRN PRN PRN Reason: PROTOCOL Stop: 09/10/17 19:00 Morphine Sulfate (Morphine) 15 mg GT BID [facility] Stop: 09/15/17 16:59 Last Admin: 07/19/17 11:10 Dose: Not Given Morphine Sulfate (Morphine) 2 mg IV Q4HR PRN PRN Reason: Pain (Severe) Stop: 09/15/17 09:32 Last Admin: 07/19/17 01:43 Dose: 2 mg Multivitamins/Vitamin C (Theragran) 1 tab GT DAILY [facility] Stop: 09/10/17 14:59 Last Admin: 07/19/17 09:56 Dose: 1 tab Ondansetron HCl (Zofran Odt) 4 mg SL Q6H PRN PRN Reason: Nausea Stop: 09/10/17 13:43 Pantoprazole Sodium (Protonix) 40 mg GT BIDAC [facility] Stop: 09/10/17 16:29 Last Admin: 07/19/17 09:56 Dose: 40 mg Senna (Senna) 8.6 mg GT HS [facility] Stop: 09/10/17 20:59 Last Admin: 07/18/17 21:07 Dose: 8.6 mg Thiamine HCl (Vitamin B1) 100 mg GT DAILY [facility] Stop: 09/10/17 14:59 Last Admin: 07/19/17 11:30 Dose: 100 mg Zinc Sulfate (Zinc Sulfate) 220 mg GT DAILY [facility] Stop: 09/10/17 14:59 Last Admin: 07/19/17 09:54 Dose: 220 mg General: no acute distress, well developed, well nourished HEENT: atraumatic, normocephalic, PERRLA Neck: supple, no thyromegaly Cardiovascular: S1S2, regular Lungs: clear to auscultation bilaterally, clear to percussion Abdomen: soft, no tender, no distended Extremities: no cyanosis, no clubbing, no edema Neurological: awake, alert - Procedures Procedures: Procedures Procedure Code Date RESPIRATORY VENTILATION, GREATER THAN 96 CONSECUTIVE HOURS [id number] 07/12/17 Infectious Disease Assmt/Plan - Assessment Assessment: Impression: 1. Diarrhea. stool for C diff : neg. 2. Pneumonia. MDRO pseudomonas. 3. Leukocytosis. 4. Cirrhosis. 5. Afib, currently NSR. 6. h/o alcohol abuse. 7. Protein calorie malnutrition. 8. decubitus, sacral. There is no sign of infection,. 9. left leg decubitus ulcer. - Plan Plan: Continue colistin. Nutritional Asmnt/Malnutr-PDOC - Dietary Evaluation Malnutrition Findings (Please click <Entered> for more info): Nutritional Asmnt/Malnutrition Start: 07/13/17 14: 18 Text: Status: Complete Freq: Document 07/13/17 14:18 LCHENG (Rec: 07/13/17 14:25 LCHENG [email or web address]) Nutritional Asmnt/Malnutrition Patient General Information Nutritional Screening High Risk Consult Diagnosis PNA Pertinent Medical Hx/Surgical Hx PUD, GERD, respiratory failure , cirrhosis, anemia, dysphagia , a fib, PEG/GERD Subjective Information Consult received for ayaan < 12. Pt seen on vent via trach. Verified tube feeding running at 60ml/hr at this time. Spoke with RN, pt tolerated TF well. Pt had diarrhea from last night, c diff test ordered. Current Diet Order/ Nutrition Support [employer] HN 60ml/hr x 20hr Pertinent Medications vit C, D5-0.45ns, folate, reglan, theragran, protonix, piperacillin, senna, vit B1, vancomycin, Zinc Pertinent Labs 07/12 Na 130, K 4.3, Cl 96, BUN 17, Cr 0.6, Glucose 90, Alb 2 .2 Nutritional Hx/Data Height 1.63 m Height (Calculated Centimeters) 162.6 Current Weight (lbs) 44.452 kg Weight (Calculated Kilograms) 44.5 Weight (Calculated Grams) 26614.1 [place] Body Weight 130 Body Mass Index (BMI) 16.8 Weight Status Underweight GI Symptoms GI Symptoms Diarrhea Last BM 07/13 Difficult in: None Skin Integrity/Comment: open wound to buttocks, ulceration to right calf, bruise to biletarl upper and lower extremities, discoloration to sacrum Estimated Nutritional Goals Calories/Kcals/Kg 23-27 Kcals Calculated 3285-4686 Protein g/k-1.2 Protein Calculated 54-65 Fluid: ml 1242-1458ml (1ml/kcal) Nutritional Problem 1. Problem Problem increased nutrition needs ( protein) Etiology increased metabolic demand for wound healing Signs/Symptoms: open wound, ulceration Intervention/Recommendation Comments 1. Continue with current TF regimen. It provides 1400kcal, 65g protein, 972ml free water , meeting 100% of nutritional needs 2. Monitor TF rate, tolerance, wt weekly, skin integrity and labs 3. F/U as moderate risk in 3-5 days, 03/31-04/02 Expected Outcomes/Goals Expected Outcomes/Goals 1. Pt to meet at least 75% of nutritional needs via nutrition support with tolerance 2. Wt stability, skin to remain intact, labs to approach WNL.
[2017-07-19 14:14] LABS: URINE MICROSCOPIC INDICATED? YES; URINE SOURCE FOLEY PORT
[2017-07-19 14:18] LABS: URINE BILIRUBIN NEGATIVE (NEGATIVE); URINE BLOOD SMALL (NEGATIVE); URINE GLUCOSE (UA) 100 mg/dL (NEGATIVE); URINE KETONE NEGATIVE (NEGATIVE); URINE LEUKOCYTE ESTERASE NEGATIVE (NEGATIVE); URINE NITRATE NEGATIVE (NEGATIVE); URINE PROTEIN 30 mg/dL (NEGATIVE); URINE UROBILINOGEN 0.2 E.U./dL (0.2 - 1.0)
[2017-07-19 14:50] LABS: URINE COLOR YELLOW
[2017-07-19 14:54] LABS: URINE CLARITY SLIGHTLY HAZY (CLEAR)
[2017-07-19 14:55] LABS: URINE BACTERIA NONE SEEN /hpf (NONE SEEN); URINE EPITHELIAL CELLS OCCASIONAL /lpf (FEW); URINE WBC 0-2 /hpf (0-5)
[2017-07-20] MEDS: Polyvinyl Alcohol Ophth Soln 15 mL Bottle EACH EYE SCH ×6 (00:19→20:24)
[2017-07-20] MEDS: D5-0.45NS 1,000 ML IV SCH ×2 (00:19→14:12)
[2017-07-20] MEDS: Albuterol Nebulizer 2.5mg/3mL HHN SCH ×4 (01:21→19:15)
[2017-07-20] MEDS: Ipratropium Neb 0.5 mg/2.5 mL UD HHN SCH ×4 (01:22→19:16)
[2017-07-20 05:32] LABS: % EOSINOPHILS 14.2 % (0.0-5.0); % MONOCYTES 4.5 % (2.0-10.0); % NEUTROPHILS 70.3 % (40.0-80.0); BASOPHILE ABSOLUTE 0.1 Th/cumm (0-0.2); EOSINOPHILE ABSOLUTE 1.9 Th/cmm (0.1-0.4); HEMOGLOBIN 8.9 gm/dL (12-16); LYMPHOCYTE ABSOLUTE 1.3 Th/cmm (1.5-3.0); MEAN CELL VOLUME 97.8 fl (80-99); MEAN CORPUSCULAR HEMOGLOBIN 32.2 pg (26.0-30.0); MEAN CORPUSCULAR HGB CONC 32.9 pg (28.0-36.0); MEAN PLATELET VOLUME 8.8 fl; MONOCYTE ABSOLUTE 0.6 Th/cmm (0.3-1.0); NEUTROPHILE ABSOLUTE 9.3 Th/cmm (1.8-8.0); PLATELET COUNT 171 Th/cmm (150-400); RED BLOOD COUNT 2.76 Mil/cmm (4.30-5.70); RED CELL DISTRIBUTION WIDTH 21.9 % (11.5-20.0)
[2017-07-20 05:33] LABS: WHITE BLOOD COUNT 13.2 Th/cmm (4.8-10.8)
--- NOTE | 2017-07-20 08:53 | Diagnostic Imaging Report ---
CHEST X-RAY: AP view INDICATION: Pneumonia COMPARISON: 07/19/2017 FINDINGS: Tracheostomy tube is stable. Bilateral interstitial infiltrates are noted with small bilateral effusions. Mild cardiomegaly is noted. Gas distended stomach and loops of bowel are noted with postsurgical changes also noted. A percutaneous gastric feeding tube is noted. IMPRESSION: Bilateral interstitial infiltrates and probable mild degree of congestion. Small bilateral effusions are also noted. Gas distended stomach and small bowel and postsurgical changes of the upper abdomen. If indicated acute abdominal series may also be obtained for further assessment.
[2017-07-20] MEDS: Pantoprazole 40 mg/Packet GT SCH ×2 (08:56→17:16)
[2017-07-20] MEDS: Multivitamin Tab GT SCH (08:56)
[2017-07-20] MEDS: Morphine 10 mg/5 ml 5mL UDC GT SCH ×2 (08:57→17:15)
[2017-07-20] MEDS: Chlorhexidine Gluconate 0.12% 15mL Mouthwash MM SCH ×2 (08:59→20:23)
--- NOTE | 2017-07-20 16:21 | Internal Medicine Prog Note ---
Internal Medicine Subjective - Subjective Service Date: 07/20/17 Patient seen and examined:: with staff Patient is:: awake Per staff patient has:: tolerating meds Internal Medicine Objective - Results Result Diagrams: 07/20/17 04:29 07/17/17 04:21 Recent Labs: Laboratory Last Values WBC 13.2 Th/cmm (4.8-10.8) H 07/20/17 04:29 RBC 2.76 Mil/cmm (4.30-5.70) L 07/20/17 04:29 Hgb 8.9 gm/dL (12-16) L 07/20/17 04:29 Hct 27.0 % (41.0-60) L 07/20/17 04:29 MCV 97.8 fl (80-99) 07/20/17 04:29 MCH 32.2 pg (26.0-30.0) H 07/20/17 04:29 MCHC Differential 32.9 pg (28.0-36.0) 07/20/17 04:29 RDW 21.9 % (11.5-20.0) H 07/20/17 04:29 Plt Count 171 Th/cmm (150-400) 07/20/17 04:29 MPV 8.8 fl 07/20/17 04:29 Neutrophils % 70.3 % (40.0-80.0) 07/20/17 04:29 Band Neutrophils % 6 % (0-10) 07/11/17 19:46 Lymphocytes % 10.0 % (20.0-50.0) L 07/20/17 04:29 Monocytes % 4.5 % (2.0-10.0) 07/20/17 04:29 Eosinophils % 14.2 % (0.0-5.0) H 07/20/17 04:29 Basophils % 1.0 % (0.0-2.0) 07/20/17 04:29 Neutrophils (Manual) 73 % (40-80) 07/17/17 04:21 Lymphocytes 5 % (20-50) L 07/17/17 04:21 Monocytes 2 % (2-10) 07/17/17 04:21 Eosinophils 20 % (0-5) H 07/17/17 04:21 Basophils 0 % (0-3) 03/11/18 19:46 Platelet Estimate ADEQUATE (NORMAL) 07/17/17 04:21 Platelet Morphology NORMAL (NORMAL) 07/11/17 19:46 Anisocytosis 1+ 07/11/17 19:46 RBC Morph Micro Appear ABNORMAL (NORMAL) 07/11/17 19:46 Specimen Source ARTERIAL 07/12/17 06:00 Sample Site Right Radial 07/12/17 06:00 pH 7.45 (7.35-7.45) 07/12/17 06:00 pCO2 50.0 mmHg (35.0-45.0) H 07/12/17 06:00 pO2 100.0 mmHg (80.0-100.0) 07/12/17 06:00 HCO3 32.2 mEq/L (20.0-26.0) H 07/12/17 06:00 Base Excess 9.3 mEq/L (-3.0-3.0) H 07/12/17 06:00 O2 Saturation 98.0 % (92.0-100.0) 07/12/17 06:00 Jose Test Positive 07/12/17 06:00 Vent Rate 24 07/12/17 06:00 Inspired O2 40 07/12/17 06:00 Tidal Volume NA 07/12/17 06:00 PEEP 5 07/12/17 06:00 Pressure (ins/psv/peep) 25 07/12/17 06:00 Critical Value SC 07/12/17 06:00 Sodium 133 mEq/L (136-145) L 07/17/17 04:21 Potassium 4.5 mEq/L (3.5-5.1) 07/17/17 04:21 Chloride 101 mEq/L (98-107) 07/17/17 04:21 Carbon Dioxide 30.5 mEq/L (21.0-31.0) 07/17/17 04:21 Anion Gap 6.0 (7.0-16.0) L 07/17/17 04:21 BUN 12 mg/dL (7-25) 07/17/17 04:21 Creatinine 0.5 mg/dL (0.7-1.3) L 07/17/17 04:21 Est GFR ( Amer) > 60.0 ml/min (>90) 07/17/17 04:21 Est GFR (Non-Af Amer) > 60.0 ml/min 07/17/17 04:21 BUN/Creatinine Ratio 24.0 07/17/17 04:21 Glucose 114 mg/dL (70-105) H 07/17/17 04:21 POC Glucose 99 MG/DL (70 - 105) 07/15/17 13:48 Whole Bld Lactic Acid 1.10 mmol/L (0.60-1.99) 07/19/17 13:50 Calcium 10.6 mg/dL (8.6-10.3) H 07/17/17 04:21 Total Bilirubin 0.8 mg/dL (0.3-1.0) 07/17/17 04:21 AST 50 U/L (13-39) H 07/17/17 04:21 ALT 22 U/L (7-52) 07/17/17 04:21 Alkaline Phosphatase 171 U/L (34-104) H 07/17/17 04:21 Total Protein 8.1 gm/dL (6.0-8.3) 07/17/17 04:21 Albumin 2.2 gm/dL (4.2-5.5) L 07/17/17 04:21 Globulin 5.9 gm/dL 07/17/17 04:21 Albumin/Globulin Ratio 0.4 (1.0-1.8) L 07/17/17 04:21 Urine Source [place] 07/19/17 13:50 Urine Color YELLOW 07/19/17 13:50 Urine Clarity SLIGHTLY HAZY (CLEAR) 07/19/17 13:50 Urine pH 7.0 (4.6 - 8.0) 07/19/17 13:50 Ur Specific [place] 1.015 (1.005-1.030) 07/19/17 13:50 Urine Protein 30 mg/dL (NEGATIVE) H 07/19/17 13:50 Urine Glucose (UA) 100 mg/dL (NEGATIVE) H 07/19/17 13:50 Urine Ketones NEGATIVE mg/dL (NEGATIVE) 07/19/17 13:50 Urine Blood SMALL (NEGATIVE) H 07/19/17 13:50 Urine Nitrate NEGATIVE (NEGATIVE) 07/19/17 13:50 Urine Bilirubin NEGATIVE (NEGATIVE) 07/19/17 13:50 Urine Urobilinogen 0.2 E.U./dL (0.2 - 1.0) 07/19/17 13:50 Ur Leukocyte Esterase NEGATIVE (NEGATIVE) 07/19/17 13:50 Urine RBC 2-5 /hpf (0-5) H 07/19/17 13:50 Urine WBC 0-2 /hpf (0-5) 07/19/17 13:50 Ur Epithelial Cells OCCASIONAL /lpf (FEW) 07/19/17 13:50 Urine Bacteria NONE SEEN /hpf (NONE SEEN) 07/19/17 13:50 Stool Leukocyte NO WBC SEEN 07/13/17 10:00 Vancomycin Trough 24.8 ug/mL (10-20) H 07/14/17 04:26 - Physical Exam Vitals and I&O: Vital Signs Temp 98.6 F 07/20/17 12:00 Pulse 127 07/20/17 15:10 Resp 24 07/20/17 15:00 BP 118/56 07/20/17 15:00 Pulse Ox 100 07/20/17 15:10 Intake & Output 07/19/17 07/20/17 07/20/17 18:59 06:59 18:59 Intake Total 1730 1981.25 1100 Output Total 1210 1150 Balance 520 831.25 1100 Weight (lbs) 102 lb 105 lb 4.8 oz Intake: Intake, IV Amount 1100 1061.25 1100 Colistimethate 100 mg In 100 100 100 Sodium Chloride 0.9% 100 ml @ 100 mls/hr IV Q12H [facility] Rx#:[id number] D5-0.45NS 1,000 ml @ 75 1000 961.25 1000 mls/hr IV .[id number] [facility] Rx #:[id number] Oral 0 Tube Feeding 630 920 Output: Urine 1210 1150 Other: # Bowel Movements 1 1 Active Medications: Current Medications Acetaminophen (Tylenol 650mg/20.3ml Suspension) 640 mg GT Q4H PRN PRN Reason: Pain or Fever >101 Stop: 09/10/17 13:43 Last Admin: 07/19/17 17:44 Dose: 640 mg Albuterol Sulfate (Albuterol 2.5mg/3ml Neb Ud) 1.25 mg HHN Q6HRT [facility] Stop: 09/11/17 00:59 Last Admin: 07/20/17 13:17 Dose: 1.25 mg Artificial Tears (Artificial Tears Ophth Soln) 1 drop EACH EYE Q4HR [facility] Stop: 09/10/17 15:59 Last Admin: 07/20/17 16:01 Dose: Not Given Ascorbic Acid (Vitamin C) 500 mg GT DAILY [facility] Stop: 09/10/17 14:59 Last Admin: 07/20/17 08:56 Dose: 500 mg Chlorhexidine Gluconate (Peridex) 15 ml MM 0800,1999 [facility] Stop: 09/10/17 19:59 Last Admin: 07/20/17 08:59 Dose: 15 ml Digoxin (Lanoxin) 0.125 mg GT MWF [facility] Stop: 09/10/17 14:59 Last Admin: 07/19/17 09:55 Dose: 0.125 mg Folic Acid (Folate) 1 mg GT DAILY [facility] Stop: 09/10/17 14:59 Last Admin: 07/20/17 08:56 Dose: 1 mg Hydroxyzine HCl (Atarax) 25 mg GT TID [facility] PRN Reason: Protocol Stop: 09/12/17 16:59 Last Admin: 07/20/17 14:08 Dose: 25 mg Dextrose/Sodium Chloride (D5-0.45ns) 1,000 mls @ 75 mls/hr IV .[id number] [facility] Stop: 09/11/17 14:14 Last Admin: 07/20/17 14:12 Dose: 75 mls/hr Colistimethate Sodium 100 mg/ (Sodium Chloride) 100 mls @ 100 mls/hr IV Q12H [facility] Stop: 09/13/17 13:59 Last Infusion: 07/20/17 15:10 Dose: Infused Ipratropium [place] (Atrovent Neb 0.5mg/2.5ml) 0.5 mg HHN Q6HRT [facility] Stop: 09/11/17 00:59 Last Admin: 07/20/17 13:17 Dose: 0.5 mg Metoclopramide HCl (Reglan) 5 mg GT DAILY [facility] Stop: 09/10/17 14:59 Last Admin: 07/20/17 08:55 Dose: 5 mg Miscellaneous (Vte Chemical Prophylaxis Screen/ Admission) 1 ea [facility] PRN PRN PRN Reason: PROTOCOL Stop: 09/10/17 19:00 Morphine Sulfate (Morphine) 15 mg GT BID [facility] Stop: 09/15/17 16:59 Last Admin: 07/20/17 08:57 Dose: 15 mg Morphine Sulfate (Morphine) 2 mg IV Q4HR PRN PRN Reason: Pain (Severe) Stop: 09/15/17 09:32 Last Admin: 07/19/17 17:44 Dose: 2 mg Multivitamins/Vitamin C (Theragran) 1 tab GT DAILY [facility] Stop: 09/10/17 14:59 Last Admin: 07/20/17 08:56 Dose: 1 tab Ondansetron HCl (Zofran Odt) 4 mg SL Q6H PRN PRN Reason: Nausea Stop: 09/10/17 13:43 Pantoprazole Sodium (Protonix) 40 mg GT BIDAC [facility] Stop: 09/10/17 16:29 Last Admin: 07/20/17 08:56 Dose: 40 mg Senna (Senna) 8.6 mg GT HS [facility] Stop: 09/10/17 20:59 Last Admin: 07/19/17 21:00 Dose: 8.6 mg Thiamine HCl (Vitamin B1) 100 mg GT DAILY [facility] Stop: 09/10/17 14:59 Last Admin: 07/20/17 08:56 Dose: 100 mg Zinc Sulfate (Zinc Sulfate) 220 mg GT DAILY [facility] Stop: 09/10/17 14:59 Last Admin: 07/20/17 08:56 Dose: 220 mg - Procedures Procedures: Procedures Procedure Code Date RESPIRATORY VENTILATION, GREATER THAN 96 CONSECUTIVE HOURS [id number] 07/12/17 Internal Medicine Assmt/Plan - Assessment Assessment: Pneumonia Leukocytosis Diarrhea hx cirrhosis Protein calorie malnutrition sacral ulcer left leg ulcer - Plan Plan: icu monitoring follow up labs in am continue current plan of care Nutritional Asmnt/Malnutr-PDOC - Dietary Evaluation Malnutrition Findings (Please click <Entered> for more info): Nutritional Asmnt/Malnutrition Start: 07/13/17 14: 18 Text: Status: Complete Freq: Document 07/13/17 14:18 LCHENG (Rec: 07/13/17 14:25 LCHENG [email or web address]) Nutritional Asmnt/Malnutrition Patient General Information Nutritional Screening High Risk Consult Diagnosis PNA Pertinent Medical Hx/Surgical Hx PUD, GERD, respiratory failure , cirrhosis, anemia, dysphagia , a fib, PEG/GERD Subjective Information Consult received for ayaan < 12. Pt seen on vent via trach. Verified tube feeding running at 60ml/hr at this time. Spoke with RN, pt tolerated TF well. Pt had diarrhea from last night, c diff test ordered. Current Diet Order/ Nutrition Support FIbersource HN 60ml/hr x 20hr Pertinent Medications vit C, D5-0.45ns, folate, reglan, theragran, protonix, piperacillin, senna, vit B1, vancomycin, Zinc Pertinent Labs 07/12 Na 130, K 4.3, Cl 96, BUN 17, Cr 0.6, Glucose 90, Alb 2 .2 Nutritional Hx/Data Height 5 ft 4 in Height (Calculated Centimeters) 162.6 Current Weight (lbs) 98 lb Weight (Calculated Kilograms) 44.5 Weight (Calculated Grams) 10204.1 [place] Body Weight 130 Body Mass Index (BMI) 16.8 Weight Status Underweight GI Symptoms GI Symptoms Diarrhea Last BM 07/13 Difficult in: None Skin Integrity/Comment: open wound to buttocks, ulceration to right calf, bruise to biletarl upper and lower extremities, discoloration to sacrum Estimated Nutritional Goals Calories/Kcals/Kg 23-27 Kcals Calculated 4574-4302 Protein g/k-1.2 Protein Calculated 54-65 Fluid: ml 1242-1458ml (1ml/kcal) Nutritional Problem 1. Problem Problem increased nutrition needs ( protein) Etiology increased metabolic demand for wound healing Signs/Symptoms: open wound, ulceration Intervention/Recommendation Comments 1. Continue with current TF regimen. It provides 1400kcal, 65g protein, 972ml free water , meeting 100% of nutritional needs 2. Monitor TF rate, tolerance, wt weekly, skin integrity and labs 3. F/U as moderate risk in 3-5 days, 03/31-04/02 Expected Outcomes/Goals Expected Outcomes/Goals 1. Pt to meet at least 75% of nutritional needs via nutrition support with tolerance 2. Wt stability, skin to remain intact, labs to approach WNL.
--- NOTE | 2017-07-20 22:20 | Infectious Disease Prog Note ---
Infectious Disease Subjective - Review of Systems Service Date: 07/20/17 Subjective: Remains on ventilator, status post tracheostomy. Infectious Disease Objective - Results Result Diagrams: 07/20/17 04:29 07/17/17 04:21 Recent Labs: Laboratory Last Values WBC 13.2 Th/cmm (4.8-10.8) H 07/20/17 04:29 RBC 2.76 Mil/cmm (4.30-5.70) L 07/20/17 04:29 Hgb 8.9 gm/dL (12-16) L 07/20/17 04:29 Hct 27.0 % (41.0-60) L 07/20/17 04:29 MCV 97.8 fl (80-99) 07/20/17 04:29 MCH 32.2 pg (26.0-30.0) H 07/20/17 04:29 MCHC Differential 32.9 pg (28.0-36.0) 07/20/17 04:29 RDW 21.9 % (11.5-20.0) H 07/20/17 04:29 Plt Count 171 Th/cmm (150-400) 07/20/17 04:29 MPV 8.8 fl 07/20/17 04:29 Neutrophils % 70.3 % (40.0-80.0) 07/20/17 04:29 Band Neutrophils % 6 % (0-10) 07/11/17 19:46 Lymphocytes % 10.0 % (20.0-50.0) L 07/20/17 04:29 Monocytes % 4.5 % (2.0-10.0) 07/20/17 04:29 Eosinophils % 14.2 % (0.0-5.0) H 07/20/17 04:29 Basophils % 1.0 % (0.0-2.0) 07/20/17 04:29 Neutrophils (Manual) 73 % (40-80) 07/17/17 04:21 Lymphocytes 5 % (20-50) L 07/17/17 04:21 Monocytes 2 % (2-10) 07/17/17 04:21 Eosinophils 20 % (0-5) H 07/17/17 04:21 Basophils 0 % (0-3) 07/11/17 19:46 Platelet Estimate ADEQUATE (NORMAL) 07/17/17 04:21 Platelet Morphology NORMAL (NORMAL) 07/11/17 19:46 Anisocytosis 1+ 07/11/17 19:46 RBC Morph Micro Appear ABNORMAL (NORMAL) 07/11/17 19:46 Specimen Source ARTERIAL 07/12/17 06:00 Sample Site Right Radial 07/12/17 06:00 pH 7.45 (7.35-7.45) 07/12/17 06:00 pCO2 50.0 mmHg (35.0-45.0) H 07/12/17 06:00 pO2 100.0 mmHg (80.0-100.0) 07/12/17 06:00 HCO3 32.2 mEq/L (20.0-26.0) H 07/12/17 06:00 Base Excess 9.3 mEq/L (-3.0-3.0) H 07/12/17 06:00 O2 Saturation 98.0 % (92.0-100.0) 07/12/17 06:00 Jose Test Positive 07/12/17 06:00 Vent Rate 24 07/12/17 06:00 Inspired O2 40 07/12/17 06:00 Tidal Volume NA 07/12/17 06:00 PEEP 5 07/12/17 06:00 Pressure (ins/psv/peep) 25 07/12/17 06:00 Critical Value SC 07/12/17 06:00 Sodium 133 mEq/L (136-145) L 07/17/17 04:21 Potassium 4.5 mEq/L (3.5-5.1) 07/17/17 04:21 Chloride 101 mEq/L (98-107) 07/17/17 04:21 Carbon Dioxide 30.5 mEq/L (21.0-31.0) 07/17/17 04:21 Anion Gap 6.0 (7.0-16.0) L 07/17/17 04:21 BUN 12 mg/dL (7-25) 07/17/17 04:21 Creatinine 0.5 mg/dL (0.7-1.3) L 07/17/17 04:21 Est GFR ( Amer) > 60.0 ml/min (>90) 07/17/17 04:21 Est GFR (Non-Af Amer) > 60.0 ml/min 07/17/17 04:21 BUN/Creatinine Ratio 24.0 07/17/17 04:21 Glucose 114 mg/dL (70-105) H 07/17/17 04:21 POC Glucose 99 MG/DL (70 - 105) 07/15/17 13:48 Whole Bld Lactic Acid 1.10 mmol/L (0.60-1.99) 07/19/17 13:50 Calcium 10.6 mg/dL (8.6-10.3) H 07/17/17 04:21 Total Bilirubin 0.8 mg/dL (0.3-1.0) 07/17/17 04:21 AST 50 U/L (13-39) H 07/17/17 04:21 ALT 22 U/L (7-52) 07/17/17 04:21 Alkaline Phosphatase 171 U/L (34-104) H 07/17/17 04:21 Total Protein 8.1 gm/dL (6.0-8.3) 07/17/17 04:21 Albumin 2.2 gm/dL (4.2-5.5) L 07/17/17 04:21 Globulin 5.9 gm/dL 07/17/17 04:21 Albumin/Globulin Ratio 0.4 (1.0-1.8) L 07/17/17 04:21 Urine Source [place] 07/19/17 13:50 Urine Color YELLOW 07/19/17 13:50 Urine Clarity SLIGHTLY [place] (CLEAR) 07/19/17 13:50 Urine pH 7.0 (4.6 - 8.0) 07/19/17 13:50 Ur Specific [place] 1.015 (1.005-1.030) 07/19/17 13:50 Urine Protein 30 mg/dL (NEGATIVE) H 07/19/17 13:50 Urine Glucose (UA) 100 mg/dL (NEGATIVE) H 07/19/17 13:50 Urine Ketones NEGATIVE mg/dL (NEGATIVE) 07/19/17 13:50 Urine Blood SMALL (NEGATIVE) H 07/19/17 13:50 Urine Nitrate NEGATIVE (NEGATIVE) 07/19/17 13:50 Urine Bilirubin NEGATIVE (NEGATIVE) 07/19/17 13:50 Urine Urobilinogen 0.2 E.U./dL (0.2 - 1.0) 07/19/17 13:50 Ur Leukocyte Esterase NEGATIVE (NEGATIVE) 07/19/17 13:50 Urine RBC 2-5 /hpf (0-5) H 07/19/17 13:50 Urine WBC 0-2 /hpf (0-5) 07/19/17 13:50 Ur Epithelial Cells OCCASIONAL /lpf (FEW) 07/19/17 13:50 Urine Bacteria NONE SEEN /hpf (NONE SEEN) 07/19/17 13:50 Stool Leukocyte NO WBC SEEN 07/13/17 10:00 Vancomycin Trough 24.8 ug/mL (10-20) H 07/14/17 04:26 - Physical Exam Vitals and I&O: Vital Signs Temp 100.0 F 07/20/17 21:00 Pulse 118 07/20/17 21:03 Resp 26 07/20/17 21:00 BP 107/58 07/20/17 21:00 Pulse Ox 100 07/20/17 21:03 Intake & Output 07/20/17 07/20/17 07/21/17 06:59 18:59 06:59 Intake Total 1981.25 1100 Output Total 1150 Balance 831.25 1100 Weight (lbs) 47.763 kg Intake: Intake, IV Amount 1061.25 1100 Colistimethate 100 mg In 100 100 Sodium Chloride 0.9% 100 ml @ 100 mls/hr IV Q12H [facility] Rx#:[id number] D5-0.45NS 1,000 ml @ 75 961.25 1000 mls/hr IV .[id number] [facility] Rx #:[id number] Oral 0 Tube Feeding 920 Output: Urine 1150 Other: # Bowel Movements 1 Active Medications: Current Medications Acetaminophen (Tylenol 650mg/20.3ml Suspension) 640 mg GT Q4H PRN PRN Reason: Pain or Fever >101 Stop: 09/10/17 13:43 Last Admin: 07/19/17 17:44 Dose: 640 mg Albuterol Sulfate (Albuterol 2.5mg/3ml Neb Ud) 1.25 mg HHN Q6HRT [facility] Stop: 09/11/17 00:59 Last Admin: 07/20/17 19:15 Dose: 1.25 mg Artificial Tears (Artificial Tears Ophth Soln) 1 drop EACH EYE Q4HR [facility] Stop: 09/10/17 15:59 Last Admin: 07/20/17 20:24 Dose: 1 drop Ascorbic Acid (Vitamin C) 500 mg GT DAILY [facility] Stop: 09/10/17 14:59 Last Admin: 07/20/17 08:56 Dose: 500 mg Chlorhexidine Gluconate (Peridex) 15 ml MM 0800,1999 [facility] Stop: 09/10/17 19:59 Last Admin: 07/20/17 20:23 Dose: 15 ml Digoxin (Lanoxin) 0.125 mg GT MWF [facility] Stop: 09/10/17 14:59 Last Admin: 07/19/17 09:55 Dose: 0.125 mg Folic Acid (Folate) 1 mg GT DAILY [facility] Stop: 09/10/17 14:59 Last Admin: 07/20/17 08:56 Dose: 1 mg Hydroxyzine HCl (Atarax) 25 mg GT TID [facility] PRN Reason: Protocol Stop: 09/12/17 16:59 Last Admin: 07/20/17 20:43 Dose: 25 mg Dextrose/Sodium Chloride (D5-0.45ns) 1,000 mls @ 75 mls/hr IV .[id number] [facility] Stop: 09/11/17 14:14 Last Admin: 07/20/17 14:12 Dose: 75 mls/hr Colistimethate Sodium 100 mg/ (Sodium Chloride) 100 mls @ 100 mls/hr IV Q12H [facility] Stop: 09/13/17 13:59 Last Infusion: 07/20/17 15:10 Dose: Infused Ipratropium [place] (Atrovent Neb 0.5mg/2.5ml) 0.5 mg HHN Q6HRT [facility] Stop: 09/11/17 00:59 Last Admin: 07/20/17 19:16 Dose: 0.5 mg Metoclopramide HCl (Reglan) 5 mg GT DAILY [facility] Stop: 09/10/17 14:59 Last Admin: 07/20/17 08:55 Dose: 5 mg Miscellaneous (Vte Chemical Prophylaxis Screen/ Admission) 1 ea [facility] PRN PRN PRN Reason: PROTOCOL Stop: 09/10/17 19:00 Morphine Sulfate (Morphine) 15 mg GT BID [facility] Stop: 09/15/17 16:59 Last Admin: 07/20/17 17:15 Dose: 15 mg Morphine Sulfate (Morphine) 2 mg IV Q4HR PRN PRN Reason: Pain (Severe) Stop: 09/15/17 09:32 Last Admin: 07/19/17 17:44 Dose: 2 mg Multivitamins/Vitamin C (Theragran) 1 tab GT DAILY [facility] Stop: 09/10/17 14:59 Last Admin: 07/20/17 08:56 Dose: 1 tab Ondansetron HCl (Zofran Odt) 4 mg SL Q6H PRN PRN Reason: Nausea Stop: 09/10/17 13:43 Pantoprazole Sodium (Protonix) 40 mg GT BIDAC [facility] Stop: 09/10/17 16:29 Last Admin: 07/20/17 17:16 Dose: 40 mg Senna (Senna) 8.6 mg GT HS [facility] Stop: 09/10/17 20:59 Last Admin: 07/20/17 20:43 Dose: 8.6 mg Thiamine HCl (Vitamin B1) 100 mg GT DAILY [facility] Stop: 09/10/17 14:59 Last Admin: 07/20/17 08:56 Dose: 100 mg Zinc Sulfate (Zinc Sulfate) 220 mg GT DAILY [facility] Stop: 09/10/17 14:59 Last Admin: 07/20/17 08:56 Dose: 220 mg General: no acute distress, well developed, well nourished HEENT: atraumatic, normocephalic, PERRLA, EOMI Neck: supple, tracheostomy, no thyromegaly, no lymphadenopathy Cardiovascular: S1S2, regular Lungs: clear to auscultation bilaterally, no clear to percussion Abdomen: soft, tender, bowel sounds, no distended, no mass, no hepatomegaly Extremities: cyanosis, clubbing, edema Neurological: awake, alert Skin: intact - Procedures Procedures: Procedures Procedure Code Date RESPIRATORY VENTILATION, GREATER THAN 96 CONSECUTIVE HOURS [id number] 07/12/17 Infectious Disease Assmt/Plan - Assessment Assessment: Impression: 1. Diarrhea. stool for C diff : neg. 2. Pneumonia. MDRO pseudomonas. 3. Leukocytosis. 4. Cirrhosis. 5. Afib, currently NSR. 6. h/o alcohol abuse. 7. Protein calorie malnutrition. 8. decubitus, sacral. There is no sign of infection,. 9. left leg decubitus ulcer. - Plan Plan: Continue colistin. Nutritional Asmnt/Malnutr-PDOC - Dietary Evaluation Malnutrition Findings (Please click <Entered> for more info): Nutritional Asmnt/Malnutrition Start: 07/13/17 14: 18 Text: Status: Complete Freq: Document 07/13/17 14:18 LINCOLNPATRICIA (Rec: 07/13/17 14:25 GRZEGORZ [email or web address]) Nutritional Asmnt/Malnutrition Patient General Information Nutritional Screening High Risk Consult Diagnosis PNA Pertinent Medical Hx/Surgical Hx PUD, GERD, respiratory failure , cirrhosis, anemia, dysphagia , a fib, PEG/GERD Subjective Information Consult received for ayaan < 12. Pt seen on vent via trach. Verified tube feeding running at 60ml/hr at this time. Spoke with RN, pt tolerated TF well. Pt had diarrhea from last night, c diff test ordered. Current Diet Order/ Nutrition Support [employer] HN 60ml/hr x 20hr Pertinent Medications vit C, D5-0.45ns, folate, reglan, theragran, protonix, piperacillin, senna, vit B1, vancomycin, Zinc Pertinent Labs 07/12 Na 130, K 4.3, Cl 96, BUN 17, Cr 0.6, Glucose 90, Alb 2 .2 Nutritional Hx/Data Height 1.63 m Height (Calculated Centimeters) 162.6 Current Weight (lbs) 44.452 kg Weight (Calculated Kilograms) 44.5 Weight (Calculated Grams) 41676.1 [place] Body Weight 130 Body Mass Index (BMI) 16.8 Weight Status Underweight GI Symptoms GI Symptoms Diarrhea Last BM 07/13 Difficult in: None Skin Integrity/Comment: open wound to buttocks, ulceration to right calf, bruise to biletarl upper and lower extremities, discoloration to sacrum Estimated Nutritional Goals Calories/Kcals/Kg 23-27 Kcals Calculated 2934-1966 Protein g/k-1.2 Protein Calculated 54-65 Fluid: ml 1242-1458ml (1ml/kcal) Nutritional Problem 1. Problem Problem increased nutrition needs ( protein) Etiology increased metabolic demand for wound healing Signs/Symptoms: open wound, ulceration Intervention/Recommendation Comments 1. Continue with current TF regimen. It provides 1400kcal, 65g protein, 972ml free water , meeting 100% of nutritional needs 2. Monitor TF rate, tolerance, wt weekly, skin integrity and labs 3. F/U as moderate risk in 3-5 days, 03/31-04/02 Expected Outcomes/Goals Expected Outcomes/Goals 1. Pt to meet at least 75% of nutritional needs via nutrition support with tolerance 2. Wt stability, skin to remain intact, labs to approach WNL.
[2017-07-21] MEDS: Polyvinyl Alcohol Ophth Soln 15 mL Bottle EACH EYE SCH ×6 (00:02→21:00)
[2017-07-21] MEDS: Ipratropium Neb 0.5 mg/2.5 mL UD HHN SCH ×4 (01:04→18:44)
[2017-07-21] MEDS: Albuterol Nebulizer 2.5mg/3mL HHN SCH ×4 (01:04→18:44)
[2017-07-21 05:51] LABS: EOSINOPHILE ABSOLUTE 1.7 Th/cmm (0.1-0.4); LYMPHOCYTE ABSOLUTE 1.8 Th/cmm (1.5-3.0); MONOCYTE ABSOLUTE 1.1 Th/cmm (0.3-1.0)
[2017-07-21 05:57] LABS: % EOSINOPHILS 12.3 % (0.0-5.0); % LYMPHOCYTES 12.7 % (20.0-50.0); % MONOCYTES 8.3 % (2.0-10.0); % NEUTROPHILS 66.7 % (40.0-80.0); HEMATOCRIT 26.8 % (41.0-60); MEAN CELL VOLUME 98.8 fl (80-99); MEAN CORPUSCULAR HEMOGLOBIN 33.1 pg (26.0-30.0); MEAN CORPUSCULAR HGB CONC 33.5 pg (28.0-36.0); MEAN PLATELET VOLUME 8.7 fl; NEUTROPHILE ABSOLUTE 9.2 Th/cmm (1.8-8.0); PLATELET COUNT 183 Th/cmm (150-400); RED BLOOD COUNT 2.71 Mil/cmm (4.30-5.70); RED CELL DISTRIBUTION WIDTH 21.2 % (11.5-20.0)
[2017-07-21 05:59] LABS: WHITE BLOOD COUNT 13.8 Th/cmm (4.8-10.8)
[2017-07-21] MEDS: D5-0.45NS 1,000 ML IV SCH ×2 (06:15→20:49)
[2017-07-21] MEDS: Pantoprazole 40 mg/Packet GT SCH ×2 (07:02→17:13)
[2017-07-21] MEDS: Chlorhexidine Gluconate 0.12% 15mL Mouthwash MM SCH ×2 (07:56→20:59)
[2017-07-21] MEDS: Multivitamin Tab GT SCH (09:08)
[2017-07-21] MEDS: Morphine 10 mg/5 ml 5mL UDC GT SCH ×2 (09:08→19:03)
--- NOTE | 2017-07-21 09:30 | General Progress Note ---
Subjective - Review of Systems Events since last encounter: patient on vent with trach Objective - Results Result Diagrams: 07/21/17 04:20 07/17/17 04:21 Recent Labs: Laboratory Last Values WBC 13.8 Th/cmm (4.8-10.8) H 07/21/17 04:20 RBC 2.71 Mil/cmm (4.30-5.70) L 07/21/17 04:20 Hgb 9.0 gm/dL (12-16) L 07/21/17 04:20 Hct 26.8 % (41.0-60) L 07/21/17 04:20 MCV 98.8 fl (80-99) 07/21/17 04:20 MCH 33.1 pg (26.0-30.0) H 07/21/17 04:20 MCHC Differential 33.5 pg (28.0-36.0) 07/21/17 04:20 RDW 21.2 % (11.5-20.0) H 07/21/17 04:20 Plt Count 183 Th/cmm (150-400) 07/21/17 04:20 MPV 8.7 fl 07/21/17 04:20 Neutrophils % 66.7 % (40.0-80.0) 07/21/17 04:20 Band Neutrophils % 6 % (0-10) 07/11/17 19:46 Lymphocytes % 12.7 % (20.0-50.0) L 07/21/17 04:20 Monocytes % 8.3 % (2.0-10.0) 07/21/17 04:20 Eosinophils % 12.3 % (0.0-5.0) H 07/21/17 04:20 Basophils % 0.0 % (0.0-2.0) 07/21/17 04:20 Neutrophils (Manual) 73 % (40-80) 07/17/17 04:21 Lymphocytes 5 % (20-50) L 07/17/17 04:21 Monocytes 2 % (2-10) 07/17/17 04:21 Eosinophils 20 % (0-5) H 07/17/17 04:21 Basophils 0 % (0-3) 07/11/17 19:46 Platelet Estimate ADEQUATE (NORMAL) 07/17/17 04:21 Platelet Morphology NORMAL (NORMAL) 07/11/17 19:46 Anisocytosis 1+ 07/11/17 19:46 RBC Morph Micro Appear ABNORMAL (NORMAL) 07/11/17 19:46 Specimen Source ARTERIAL 07/12/17 06:00 Sample Site Right Radial 07/12/17 06:00 pH 7.45 (7.35-7.45) 07/12/17 06:00 pCO2 50.0 mmHg (35.0-45.0) H 07/12/17 06:00 pO2 100.0 mmHg (80.0-100.0) 07/12/17 06:00 HCO3 32.2 mEq/L (20.0-26.0) H 07/12/17 06:00 Base Excess 9.3 mEq/L (-3.0-3.0) H 07/12/17 06:00 O2 Saturation 98.0 % (92.0-100.0) 07/12/17 06:00 Jose Test Positive 07/12/17 06:00 Vent Rate 24 07/12/17 06:00 Inspired O2 40 07/12/17 06:00 Tidal Volume NA 07/12/17 06:00 PEEP 5 07/12/17 06:00 Pressure (ins/psv/peep) 25 07/12/17 06:00 Critical Value SC 07/12/17 06:00 Sodium 133 mEq/L (136-145) L 07/17/17 04:21 Potassium 4.5 mEq/L (3.5-5.1) 07/17/17 04:21 Chloride 101 mEq/L (98-107) 07/17/17 04:21 Carbon Dioxide 30.5 mEq/L (21.0-31.0) 07/17/17 04:21 Anion Gap 6.0 (7.0-16.0) L 07/17/17 04:21 BUN 12 mg/dL (7-25) 07/17/17 04:21 Creatinine 0.5 mg/dL (0.7-1.3) L 07/17/17 04:21 Est GFR ( Amer) > 60.0 ml/min (>90) 07/17/17 04:21 Est GFR (Non-Af Amer) > 60.0 ml/min 07/17/17 04:21 BUN/Creatinine Ratio 24.0 07/17/17 04:21 Glucose 114 mg/dL (70-105) H 07/17/17 04:21 POC Glucose 99 MG/DL (70 - 105) 07/15/17 13:48 Whole Bld Lactic Acid 1.10 mmol/L (0.60-1.99) 07/19/17 13:50 Calcium 10.6 mg/dL (8.6-10.3) H 07/17/17 04:21 Total Bilirubin 0.8 mg/dL (0.3-1.0) 07/17/17 04:21 AST 50 U/L (13-39) H 07/17/17 04:21 ALT 22 U/L (7-52) 07/17/17 04:21 Alkaline Phosphatase 171 U/L (34-104) H 07/17/17 04:21 Total Protein 8.1 gm/dL (6.0-8.3) 07/17/17 04:21 Albumin 2.2 gm/dL (4.2-5.5) L 07/17/17 04:21 Globulin 5.9 gm/dL 07/17/17 04:21 Albumin/Globulin Ratio 0.4 (1.0-1.8) L 07/17/17 04:21 Urine Source [place] 07/19/17 13:50 Urine Color YELLOW 07/19/17 13:50 Urine Clarity SLIGHTLY HAZY (CLEAR) 07/19/17 13:50 Urine pH 7.0 (4.6 - 8.0) 07/19/17 13:50 Ur Specific [place] 1.015 (1.005-1.030) 07/19/17 13:50 Urine Protein 30 mg/dL (NEGATIVE) H 07/19/17 13:50 Urine Glucose (UA) 100 mg/dL (NEGATIVE) H 07/19/17 13:50 Urine Ketones NEGATIVE mg/dL (NEGATIVE) 07/19/17 13:50 Urine Blood SMALL (NEGATIVE) H 07/19/17 13:50 Urine Nitrate NEGATIVE (NEGATIVE) 07/19/17 13:50 Urine Bilirubin NEGATIVE (NEGATIVE) 07/19/17 13:50 Urine Urobilinogen 0.2 E.U./dL (0.2 - 1.0) 07/19/17 13:50 Ur Leukocyte Esterase NEGATIVE (NEGATIVE) 07/19/17 13:50 Urine RBC 2-5 /hpf (0-5) H 07/19/17 13:50 Urine WBC 0-2 /hpf (0-5) 07/19/17 13:50 Ur Epithelial Cells OCCASIONAL /lpf (FEW) 07/19/17 13:50 Urine Bacteria NONE SEEN /hpf (NONE SEEN) 07/19/17 13:50 Stool Leukocyte NO WBC SEEN 07/13/17 10:00 Vancomycin Trough 24.8 ug/mL (10-20) H 07/14/17 04:26 - Physical Exam Vitals and I&O: Vital Signs Temp 98.4 F 07/21/17 07:00 Pulse 109 07/21/17 09:07 Resp 20 07/21/17 07:00 BP 107/58 07/21/17 07:00 Pulse Ox 99 07/21/17 07:19 Intake & Output 07/20/17 07/21/17 07/21/17 18:59 06:59 18:59 Intake Total 1100 1880 Output Total 1025 Balance 1100 855 Weight (lbs) 47.536 kg Intake: Intake, IV Amount 1100 1100 Colistimethate 100 mg In 100 100 Sodium Chloride 0.9% 100 ml @ 100 mls/hr IV Q12H [facility] Rx#:[id number] D5-0.45NS 1,000 ml @ 75 1000 1000 mls/hr IV .[id number] [facility] Rx #:[id number] Tube Feeding 480 Other 300 Output: Urine 1025 Other: # Bowel Movements 0 Active Medications: Current Medications Acetaminophen (Tylenol 650mg/20.3ml Suspension) 640 mg GT Q4H PRN PRN Reason: Pain or Fever >101 Stop: 09/10/17 13:43 Last Admin: 07/21/17 00:49 Dose: 640 mg Albuterol Sulfate (Albuterol 2.5mg/3ml Neb Ud) 1.25 mg HHN Q6HRT [facility] Stop: 09/11/17 00:59 Last Admin: 07/21/17 07:19 Dose: 1.25 mg Artificial Tears (Artificial Tears Ophth Soln) 1 drop EACH EYE Q4HR [facility] Stop: 09/10/17 15:59 Last Admin: 07/21/17 07:56 Dose: 1 drop Ascorbic Acid (Vitamin C) 500 mg GT DAILY [facility] Stop: 09/10/17 14:59 Last Admin: 07/21/17 09:08 Dose: 500 mg Chlorhexidine Gluconate (Peridex) 15 ml MM 08,1999 [facility] Stop: 09/10/17 19:59 Last Admin: 07/21/17 07:56 Dose: 15 ml Digoxin (Lanoxin) 0.125 mg GT MWF [facility] Stop: 09/10/17 14:59 Last Admin: 07/21/17 09:07 Dose: 0.125 mg Folic Acid (Folate) 1 mg GT DAILY [facility] Stop: 09/10/17 14:59 Last Admin: 07/21/17 09:08 Dose: 1 mg Hydroxyzine HCl (Atarax) 25 mg GT TID [facility] PRN Reason: Protocol Stop: 09/12/17 16:59 Last Admin: 07/21/17 09:08 Dose: 25 mg Dextrose/Sodium Chloride (D5-0.45ns) 1,000 mls @ 75 mls/hr IV .[id number] [facility] Stop: 09/11/17 14:14 Last Admin: 07/21/17 06:15 Dose: 75 mls/hr Colistimethate Sodium 100 mg/ (Sodium Chloride) 100 mls @ 100 mls/hr IV Q12H [facility] Stop: 09/13/17 13:59 Last Infusion: 07/21/17 03:41 Dose: Infused Ipratropium [place] (Atrovent Neb 0.5mg/2.5ml) 0.5 mg HHN Q6HRT [facility] Stop: 09/11/17 00:59 Last Admin: 07/21/17 07:19 Dose: 0.5 mg Metoclopramide HCl (Reglan) 5 mg GT DAILY [facility] Stop: 09/10/17 14:59 Last Admin: 07/21/17 09:07 Dose: 5 mg Miscellaneous (Vte Chemical Prophylaxis Screen/ Admission) 1 ea [facility] PRN PRN PRN Reason: PROTOCOL Stop: 09/10/17 19:00 Morphine Sulfate (Morphine) 15 mg GT BID [facility] Stop: 09/15/17 16:59 Last Admin: 07/21/17 09:08 Dose: Not Given Morphine Sulfate (Morphine) 2 mg IV Q4HR PRN PRN Reason: Pain (Severe) Stop: 09/15/17 09:32 Last Admin: 07/19/17 17:44 Dose: 2 mg Multivitamins/Vitamin C (Theragran) 1 tab GT DAILY [facility] Stop: 09/10/17 14:59 Last Admin: 07/21/17 09:08 Dose: 1 tab Ondansetron HCl (Zofran Odt) 4 mg SL Q6H PRN PRN Reason: Nausea Stop: 09/10/17 13:43 Pantoprazole Sodium (Protonix) 40 mg GT BIDAC [facility] Stop: 09/10/17 16:29 Last Admin: 07/21/17 07:02 Dose: 40 mg Senna (Senna) 8.6 mg GT HS [facility] Stop: 09/10/17 20:59 Last Admin: 07/20/17 20:43 Dose: 8.6 mg Thiamine HCl (Vitamin B1) 100 mg GT DAILY [facility] Stop: 09/10/17 14:59 Last Admin: 07/21/17 09:07 Dose: 100 mg Zinc Sulfate (Zinc Sulfate) 220 mg GT DAILY [facility] Stop: 09/10/17 14:59 Last Admin: 07/21/17 09:07 Dose: 220 mg - Procedures Procedures: Procedures Procedure Code Date RESPIRATORY VENTILATION, GREATER THAN 96 CONSECUTIVE HOURS [id number] 07/12/17 Nutritional Asmnt/Malnutr-PDOC - Dietary Evaluation Malnutrition Findings (Please click <Entered> for more info): Nutritional Asmnt/Malnutrition Start: 07/13/17 14: 18 Text: Status: Complete Freq: Document 07/13/17 14:18 LCHENG (Rec: 07/13/17 14:25 LCHENG [email or web address]) Nutritional Asmnt/Malnutrition Patient General Information Nutritional Screening High Risk Consult Diagnosis PNA Pertinent Medical Hx/Surgical Hx PUD, GERD, respiratory failure , cirrhosis, anemia, dysphagia , a fib, PEG/GERD Subjective Information Consult received for ayaan < 12. Pt seen on vent via trach. Verified tube feeding running at 60ml/hr at this time. Spoke with RN, pt tolerated TF well. Pt had diarrhea from last night, c diff test ordered. Current Diet Order/ Nutrition Support FIbersource HN 60ml/hr x 20hr Pertinent Medications vit C, D5-0.45ns, folate, reglan, theragran, protonix, piperacillin, senna, vit B1, vancomycin, Zinc Pertinent Labs 07/12 Na 130, K 4.3, Cl 96, BUN 17, Cr 0.6, Glucose 90, Alb 2 .2 Nutritional Hx/Data Height 1.63 m Height (Calculated Centimeters) 162.6 Current Weight (lbs) 44.452 kg Weight (Calculated Kilograms) 44.5 Weight (Calculated Grams) 23590.1 [place] Body Weight 130 Body Mass Index (BMI) 16.8 Weight Status Underweight GI Symptoms GI Symptoms Diarrhea Last BM 07/13 Difficult in: None Skin Integrity/Comment: open wound to buttocks, ulceration to right calf, bruise to biletarl upper and lower extremities, discoloration to sacrum Estimated Nutritional Goals Calories/Kcals/Kg 23-27 Kcals Calculated 0044-7722 Protein g/k-1.2 Protein Calculated 54-65 Fluid: ml 1242-1458ml (1ml/kcal) Nutritional Problem 1. Problem Problem increased nutrition needs ( protein) Etiology increased metabolic demand for wound healing Signs/Symptoms: open wound, ulceration Intervention/Recommendation Comments 1. Continue with current TF regimen. It provides 1400kcal, 65g protein, 972ml free water , meeting 100% of nutritional needs 2. Monitor TF rate, tolerance, wt weekly, skin integrity and labs 3. F/U as moderate risk in 3-5 days, 03/31-04/02 Expected Outcomes/Goals Expected Outcomes/Goals 1. Pt to meet at least 75% of nutritional needs via nutrition support with tolerance 2. Wt stability, skin to remain intact, labs to approach WNL.
--- NOTE | 2017-07-21 15:35 | Infectious Disease Prog Note ---
Infectious Disease Subjective - Review of Systems Service Date: 07/21/17 Subjective: Remains on ventilator, status post tracheostomy. Infectious Disease Objective - Results Result Diagrams: 07/21/17 04:20 07/17/17 04:21 Recent Labs: Laboratory Last Values WBC 13.8 Th/cmm (4.8-10.8) H 07/21/17 04:20 RBC 2.71 Mil/cmm (4.30-5.70) L 07/21/17 04:20 Hgb 9.0 gm/dL (12-16) L 07/21/17 04:20 Hct 26.8 % (41.0-60) L 07/21/17 04:20 MCV 98.8 fl (80-99) 07/21/17 04:20 MCH 33.1 pg (26.0-30.0) H 07/21/17 04:20 MCHC Differential 33.5 pg (28.0-36.0) 07/21/17 04:20 RDW 21.2 % (11.5-20.0) H 07/21/17 04:20 Plt Count 183 Th/cmm (150-400) 07/21/17 04:20 MPV 8.7 fl 07/21/17 04:20 Neutrophils % 66.7 % (40.0-80.0) 07/21/17 04:20 Band Neutrophils % 6 % (0-10) 07/11/17 19:46 Lymphocytes % 12.7 % (20.0-50.0) L 07/21/17 04:20 Monocytes % 8.3 % (2.0-10.0) 07/21/17 04:20 Eosinophils % 12.3 % (0.0-5.0) H 07/21/17 04:20 Basophils % 0.0 % (0.0-2.0) 07/21/17 04:20 Neutrophils (Manual) 73 % (40-80) 07/17/17 04:21 Lymphocytes 5 % (20-50) L 07/17/17 04:21 Monocytes 2 % (2-10) 07/17/17 04:21 Eosinophils 20 % (0-5) H 07/17/17 04:21 Basophils 0 % (0-3) 07/11/17 19:46 Platelet Estimate ADEQUATE (NORMAL) 07/17/17 04:21 Platelet Morphology NORMAL (NORMAL) 07/11/17 19:46 Anisocytosis 1+ 07/11/17 19:46 RBC Morph Micro Appear ABNORMAL (NORMAL) 07/11/17 19:46 Specimen Source ARTERIAL 07/12/17 06:00 Sample Site Right Radial 07/12/17 06:00 pH 7.45 (7.35-7.45) 07/12/17 06:00 pCO2 50.0 mmHg (35.0-45.0) H 07/12/17 06:00 pO2 100.0 mmHg (80.0-100.0) 07/12/17 06:00 HCO3 32.2 mEq/L (20.0-26.0) H 07/12/17 06:00 Base Excess 9.3 mEq/L (-3.0-3.0) H 07/12/17 06:00 O2 Saturation 98.0 % (92.0-100.0) 07/12/17 06:00 Jose Test Positive 07/12/17 06:00 Vent Rate 24 07/12/17 06:00 Inspired O2 40 07/12/17 06:00 Tidal Volume NA 07/12/17 06:00 PEEP 5 07/12/17 06:00 Pressure (ins/psv/peep) 25 07/12/17 06:00 Critical Value SC 07/12/17 06:00 Sodium 133 mEq/L (136-145) L 07/17/17 04:21 Potassium 4.5 mEq/L (3.5-5.1) 07/17/17 04:21 Chloride 101 mEq/L (98-107) 07/17/17 04:21 Carbon Dioxide 30.5 mEq/L (21.0-31.0) 07/17/17 04:21 Anion Gap 6.0 (7.0-16.0) L 07/17/17 04:21 BUN 12 mg/dL (7-25) 07/17/17 04:21 Creatinine 0.5 mg/dL (0.7-1.3) L 07/17/17 04:21 Est GFR ( Amer) > 60.0 ml/min (>90) 07/17/17 04:21 Est GFR (Non-Af Amer) > 60.0 ml/min 07/17/17 04:21 BUN/Creatinine Ratio 24.0 07/17/17 04:21 Glucose 114 mg/dL (70-105) H 07/17/17 04:21 POC Glucose 99 MG/DL (70 - 105) 07/15/17 13:48 Whole Bld Lactic Acid 1.10 mmol/L (0.60-1.99) 07/19/17 13:50 Calcium 10.6 mg/dL (8.6-10.3) H 07/17/17 04:21 Total Bilirubin 0.8 mg/dL (0.3-1.0) 07/17/17 04:21 AST 50 U/L (13-39) H 07/17/17 04:21 ALT 22 U/L (7-52) 07/17/17 04:21 Alkaline Phosphatase 171 U/L (34-104) H 07/17/17 04:21 Total Protein 8.1 gm/dL (6.0-8.3) 07/17/17 04:21 Albumin 2.2 gm/dL (4.2-5.5) L 07/17/17 04:21 Globulin 5.9 gm/dL 07/17/17 04:21 Albumin/Globulin Ratio 0.4 (1.0-1.8) L 07/17/17 04:21 Urine Source [place] 07/19/17 13:50 Urine Color YELLOW 07/19/17 13:50 Urine Clarity SLIGHTLY [place] (CLEAR) 07/19/17 13:50 Urine pH 7.0 (4.6 - 8.0) 07/19/17 13:50 Ur Specific [place] 1.015 (1.005-1.030) 07/19/17 13:50 Urine Protein 30 mg/dL (NEGATIVE) H 07/19/17 13:50 Urine Glucose (UA) 100 mg/dL (NEGATIVE) H 07/19/17 13:50 Urine Ketones NEGATIVE mg/dL (NEGATIVE) 07/19/17 13:50 Urine Blood SMALL (NEGATIVE) H 07/19/17 13:50 Urine Nitrate NEGATIVE (NEGATIVE) 07/19/17 13:50 Urine Bilirubin NEGATIVE (NEGATIVE) 07/19/17 13:50 Urine Urobilinogen 0.2 E.U./dL (0.2 - 1.0) 07/19/17 13:50 Ur Leukocyte Esterase NEGATIVE (NEGATIVE) 07/19/17 13:50 Urine RBC 2-5 /hpf (0-5) H 07/19/17 13:50 Urine WBC 0-2 /hpf (0-5) 07/19/17 13:50 Ur Epithelial Cells OCCASIONAL /lpf (FEW) 07/19/17 13:50 Urine Bacteria NONE SEEN /hpf (NONE SEEN) 07/19/17 13:50 Stool Leukocyte NO WBC SEEN 07/13/17 10:00 Vancomycin Trough 24.8 ug/mL (10-20) H 07/14/17 04:26 - Physical Exam Vitals and I&O: Vital Signs Temp 99.4 F 07/21/17 08:00 Pulse 107 07/21/17 12:33 Resp 17 07/21/17 11:00 BP 105/58 07/21/17 11:00 Pulse Ox 100 07/21/17 12:33 Intake & Output 07/20/17 07/21/17 07/21/17 18:59 06:59 18:59 Intake Total 1100 1880 Output Total 1025 Balance 1100 855 Weight (lbs) 47.536 kg Intake: Intake, IV Amount 1100 1100 Colistimethate 100 mg In 100 100 Sodium Chloride 0.9% 100 ml @ 100 mls/hr IV Q12H [facility] Rx#:[id number] D5-0.45NS 1,000 ml @ 75 1000 1000 mls/hr IV .[id number] [facility] Rx #:[id number] Tube Feeding 480 Other 300 Output: Urine 1025 Other: # Bowel Movements 0 Active Medications: Current Medications Acetaminophen (Tylenol 650mg/20.3ml Suspension) 640 mg GT Q4H PRN PRN Reason: Pain or Fever >101 Stop: 09/10/17 13:43 Last Admin: 07/21/17 00:49 Dose: 640 mg Albuterol Sulfate (Albuterol 2.5mg/3ml Neb Ud) 1.25 mg HHN Q6HRT [facility] Stop: 09/11/17 00:59 Last Admin: 07/21/17 12:32 Dose: 1.25 mg Artificial Tears (Artificial Tears Ophth Soln) 1 drop EACH EYE Q4HR [facility] Stop: 09/10/17 15:59 Last Admin: 07/21/17 11:47 Dose: 1 drop Ascorbic Acid (Vitamin C) 500 mg GT DAILY [facility] Stop: 09/10/17 14:59 Last Admin: 07/21/17 09:08 Dose: 500 mg Chlorhexidine Gluconate (Peridex) 15 ml MM 0800,1999 [facility] Stop: 09/10/17 19:59 Last Admin: 07/21/17 07:56 Dose: 15 ml Digoxin (Lanoxin) 0.125 mg GT MWF [facility] Stop: 09/10/17 14:59 Last Admin: 07/21/17 09:07 Dose: 0.125 mg Folic Acid (Folate) 1 mg GT DAILY [facility] Stop: 09/10/17 14:59 Last Admin: 07/21/17 09:08 Dose: 1 mg Hydroxyzine HCl (Atarax) 25 mg GT TID [facility] PRN Reason: Protocol Stop: 09/12/17 16:59 Last Admin: 07/21/17 14:05 Dose: Not Given Dextrose/Sodium Chloride (D5-0.45ns) 1,000 mls @ 75 mls/hr IV .[id number] [facility] Stop: 09/11/17 14:14 Last Admin: 07/21/17 06:15 Dose: 75 mls/hr Colistimethate Sodium 100 mg/ (Sodium Chloride) 100 mls @ 100 mls/hr IV Q12H [facility] Stop: 09/13/17 13:59 Last Admin: 07/21/17 14:46 Dose: 100 mls/hr Ipratropium [place] (Atrovent Neb 0.5mg/2.5ml) 0.5 mg HHN Q6HRT [facility] Stop: 09/11/17 00:59 Last Admin: 07/21/17 12:32 Dose: 0.5 mg Metoclopramide HCl (Reglan) 5 mg GT DAILY [facility] Stop: 09/10/17 14:59 Last Admin: 07/21/17 09:07 Dose: 5 mg Miscellaneous (Vte Chemical Prophylaxis Screen/ Admission) 1 ea [facility] PRN PRN PRN Reason: PROTOCOL Stop: 09/10/17 19:00 Morphine Sulfate (Morphine) 15 mg GT BID [facility] Stop: 09/15/17 16:59 Last Admin: 07/21/17 09:08 Dose: Not Given Morphine Sulfate (Morphine) 2 mg IV Q4HR PRN PRN Reason: Pain (Severe) Stop: 09/15/17 09:32 Last Admin: 07/19/17 17:44 Dose: 2 mg Multivitamins/Vitamin C (Theragran) 1 tab GT DAILY [facility] Stop: 09/10/17 14:59 Last Admin: 07/21/17 09:08 Dose: 1 tab Ondansetron HCl (Zofran Odt) 4 mg SL Q6H PRN PRN Reason: Nausea Stop: 09/10/17 13:43 Pantoprazole Sodium (Protonix) 40 mg GT BIDAC [facility] Stop: 09/10/17 16:29 Last Admin: 07/21/17 07:02 Dose: 40 mg Senna (Senna) 8.6 mg GT HS [facility] Stop: 09/10/17 20:59 Last Admin: 07/20/17 20:43 Dose: 8.6 mg Thiamine HCl (Vitamin B1) 100 mg GT DAILY [facility] Stop: 09/10/17 14:59 Last Admin: 07/21/17 09:07 Dose: 100 mg Zinc Sulfate (Zinc Sulfate) 220 mg GT DAILY [facility] Stop: 09/10/17 14:59 Last Admin: 07/21/17 09:07 Dose: 220 mg General: no acute distress, well developed, well nourished HEENT: atraumatic, normocephalic, PERRLA, EOMI Neck: supple, tracheostomy, no thyromegaly Cardiovascular: S1S2, regular Lungs: clear to auscultation bilaterally, clear to percussion Abdomen: soft, no tender, no distended Extremities: no cyanosis, no clubbing, no edema Neurological: awake, alert, oriented Skin: other (decubiti.) - Procedures Procedures: Procedures Procedure Code Date RESPIRATORY VENTILATION, GREATER THAN 96 CONSECUTIVE HOURS [id number] 07/12/17 Infectious Disease Assmt/Plan - Assessment Assessment: Impression: 1. Diarrhea. stool for C diff : neg. 2. Pneumonia. MDRO pseudomonas. 3. Leukocytosis. 4. Cirrhosis. 5. Afib, currently NSR. 6. h/o alcohol abuse. 7. Protein calorie malnutrition. 8. decubitus, sacral. There is no sign of infection,. 9. left leg decubitus ulcer. - Plan Plan: Continue colistin. Nutritional Asmnt/Malnutr-PDOC - Dietary Evaluation Malnutrition Findings (Please click <Entered> for more info): Nutritional Asmnt/Malnutrition Start: 07/13/17 14: 18 Text: Status: Complete Freq: Document 07/13/17 14:18 LCSUSANG (Rec: 07/13/17 14:25 LCSUSANG [email or web address]) Nutritional Asmnt/Malnutrition Patient General Information Nutritional Screening High Risk Consult Diagnosis PNA Pertinent Medical Hx/Surgical Hx PUD, GERD, respiratory failure , cirrhosis, anemia, dysphagia , a fib, PEG/GERD Subjective Information Consult received for ayaan < 12. Pt seen on vent via trach. Verified tube feeding running at 60ml/hr at this time. Spoke with RN, pt tolerated TF well. Pt had diarrhea from last night, c diff test ordered. Current Diet Order/ Nutrition Support [employer] HN 60ml/hr x 20hr Pertinent Medications vit C, D5-0.45ns, folate, reglan, theragran, protonix, piperacillin, senna, vit B1, vancomycin, Zinc Pertinent Labs 07/12 Na 130, K 4.3, Cl 96, BUN 17, Cr 0.6, Glucose 90, Alb 2 .2 Nutritional Hx/Data Height 1.63 m Height (Calculated Centimeters) 162.6 Current Weight (lbs) 44.452 kg Weight (Calculated Kilograms) 44.5 Weight (Calculated Grams) 64798.1 [place] Body Weight 130 Body Mass Index (BMI) 16.8 Weight Status Underweight GI Symptoms GI Symptoms Diarrhea Last BM 07/13 Difficult in: None Skin Integrity/Comment: open wound to buttocks, ulceration to right calf, bruise to biletarl upper and lower extremities, discoloration to sacrum Estimated Nutritional Goals Calories/Kcals/Kg 23-27 Kcals Calculated 1167-1722 Protein g/k-1.2 Protein Calculated 54-65 Fluid: ml 1242-1458ml (1ml/kcal) Nutritional Problem 1. Problem Problem increased nutrition needs ( protein) Etiology increased metabolic demand for wound healing Signs/Symptoms: open wound, ulceration Intervention/Recommendation Comments 1. Continue with current TF regimen. It provides 1400kcal, 65g protein, 972ml free water , meeting 100% of nutritional needs 2. Monitor TF rate, tolerance, wt weekly, skin integrity and labs 3. F/U as moderate risk in 3-5 days, 03/31-04/02 Expected Outcomes/Goals Expected Outcomes/Goals 1. Pt to meet at least 75% of nutritional needs via nutrition support with tolerance 2. Wt stability, skin to remain intact, labs to approach WNL.
[2017-07-22] MEDS: Polyvinyl Alcohol Ophth Soln 15 mL Bottle EACH EYE SCH ×6 (00:31→21:34)
[2017-07-22] MEDS: Albuterol Nebulizer 2.5mg/3mL HHN SCH ×4 (01:21→18:35)
[2017-07-22] MEDS: Ipratropium Neb 0.5 mg/2.5 mL UD HHN SCH ×4 (01:21→18:35)
[2017-07-22 04:43] LABS: HEMOGLOBIN 9.1 gm/dL (12-16); MONOCYTE ABSOLUTE 0.9 Th/cmm (0.3-1.0); RED CELL DISTRIBUTION WIDTH 20.5 % (11.5-20.0)
[2017-07-22 04:51] LABS: % EOSINOPHILS 10.6 % (0.0-5.0); % LYMPHOCYTES 8.8 % (20.0-50.0); % MONOCYTES 6.5 % (2.0-10.0); % NEUTROPHILS 74.1 % (40.0-80.0); EOSINOPHILE ABSOLUTE 1.4 Th/cmm (0.1-0.4); HEMATOCRIT 27.5 % (41.0-60); LYMPHOCYTE ABSOLUTE 1.2 Th/cmm (1.5-3.0); MEAN CORPUSCULAR HEMOGLOBIN 31.9 pg (26.0-30.0); MEAN CORPUSCULAR HGB CONC 32.9 pg (28.0-36.0); MEAN PLATELET VOLUME 8.4 fl; NEUTROPHILE ABSOLUTE 9.8 Th/cmm (1.8-8.0); PLATELET COUNT 192 Th/cmm (150-400); RED BLOOD COUNT 2.84 Mil/cmm (4.30-5.70)
[2017-07-22 05:00] LABS: ALB/GLOB RATIO 0.4 (1.0-1.8); ALBUMIN 2.1 gm/dL (4.2-5.5); ALKALINE PHOSPHATASE 155 U/L (34-104); ANION GAP 5.2 (7.0-16.0); BILIRUBIN,TOTAL 0.7 mg/dL (0.3-1.0); BUN - UREA NITROGEN 21 mg/dL (7-25); CALCIUM SERUM 12.3 mg/dL (8.6-10.3); CARBON DIOXIDE 23.4 mEq/L (21.0-31.0); CHLORIDE 105 mEq/L (98-107); CREATININE - SERUM 1.3 mg/dL (0.7-1.3); GFR AFRICAN-AMERICAN > 60.0 ml/min (>90); GFR NON AFRICAN-AMERICAN > 60.0 ml/min; GLUCOSE 99 mg/dL (70-105); POTASSIUM SERUM 3.6 mEq/L (3.5-5.1); SGOT 34 U/L (13-39); SGPT/ALT 18 U/L (7-52); SODIUM SERUM 130 mEq/L (136-145)
[2017-07-22 05:05] LABS: WHITE BLOOD COUNT 13.3 Th/cmm (4.8-10.8)
[2017-07-22] MEDS: Pantoprazole 40 mg/Packet GT SCH ×2 (08:29→17:23)
[2017-07-22] MEDS: Multivitamin Tab GT SCH (08:29)
[2017-07-22] MEDS: Chlorhexidine Gluconate 0.12% 15mL Mouthwash MM SCH ×2 (08:30→21:34)
[2017-07-22] MEDS: Morphine 10 mg/5 ml 5mL UDC GT SCH ×3 (08:40→17:07)
--- NOTE | 2017-07-22 08:42 | General Progress Note ---
Subjective - Review of Systems Events since last encounter: patient remains on vent no signs of distress Objective - Results Result Diagrams: 07/22/17 04:15 07/22/17 04:15 Recent Labs: Laboratory Last Values WBC 13.3 Th/cmm (4.8-10.8) H 07/22/17 04:15 RBC 2.84 Mil/cmm (4.30-5.70) L 07/22/17 04:15 Hgb 9.1 gm/dL (12-16) L 07/22/17 04:15 Hct 27.5 % (41.0-60) L 07/22/17 04:15 MCV 97.0 fl (80-99) 07/22/17 04:15 MCH 31.9 pg (26.0-30.0) H 07/22/17 04:15 MCHC Differential 32.9 pg (28.0-36.0) 07/22/17 04:15 RDW 20.5 % (11.5-20.0) H 07/22/17 04:15 Plt Count 192 Th/cmm (150-400) 07/22/17 04:15 MPV 8.4 fl 07/22/17 04:15 Neutrophils % 74.1 % (40.0-80.0) 07/22/17 04:15 Band Neutrophils % 6 % (0-10) 07/11/17 19:46 Lymphocytes % 8.8 % (20.0-50.0) L 07/22/17 04:15 Monocytes % 6.5 % (2.0-10.0) 07/22/17 04:15 Eosinophils % 10.6 % (0.0-5.0) H 07/22/17 04:15 Basophils % 0.0 % (0.0-2.0) 07/22/17 04:15 Neutrophils (Manual) 73 % (40-80) 07/17/17 04:21 Lymphocytes 5 % (20-50) L 07/17/17 04:21 Monocytes 2 % (2-10) 07/17/17 04:21 Eosinophils 20 % (0-5) H 07/17/17 04:21 Basophils 0 % (0-3) 07/11/17 19:46 Platelet Estimate ADEQUATE (NORMAL) 07/17/17 04:21 Platelet Morphology NORMAL (NORMAL) 07/11/17 19:46 Anisocytosis 1+ 07/11/17 19:46 RBC Morph Micro Appear ABNORMAL (NORMAL) 07/11/17 19:46 Specimen Source ARTERIAL 07/12/17 06:00 Sample Site Right Radial 07/12/17 06:00 pH 7.45 (7.35-7.45) 07/12/17 06:00 pCO2 50.0 mmHg (35.0-45.0) H 07/12/17 06:00 pO2 100.0 mmHg (80.0-100.0) 07/12/17 06:00 HCO3 32.2 mEq/L (20.0-26.0) H 07/12/17 06:00 Base Excess 9.3 mEq/L (-3.0-3.0) H 07/12/17 06:00 O2 Saturation 98.0 % (92.0-100.0) 07/12/17 06:00 Jose Test Positive 07/12/17 06:00 Vent Rate 24 07/12/17 06:00 Inspired O2 40 07/12/17 06:00 Tidal Volume NA 07/12/17 06:00 PEEP 5 07/12/17 06:00 Pressure (ins/psv/peep) 25 07/12/17 06:00 Critical Value SC 07/12/17 06:00 Sodium 130 mEq/L (136-145) L 07/22/17 04:15 Potassium 3.6 mEq/L (3.5-5.1) 07/22/17 04:15 Chloride 105 mEq/L (98-107) 07/22/17 04:15 Carbon Dioxide 23.4 mEq/L (21.0-31.0) 07/22/17 04:15 Anion Gap 5.2 (7.0-16.0) L 07/22/17 04:15 BUN 21 mg/dL (7-25) 07/22/17 04:15 Creatinine 1.3 mg/dL (0.7-1.3) 07/22/17 04:15 Est GFR ( Amer) > 60.0 ml/min (>90) 07/22/17 04:15 Est GFR (Non-Af Amer) > 60.0 ml/min 07/22/17 04:15 BUN/Creatinine Ratio 16.2 07/22/17 04:15 Glucose 99 mg/dL (70-105) 07/22/17 04:15 POC Glucose 99 MG/DL (70 - 105) 07/15/17 13:48 Whole Bld Lactic Acid 1.10 mmol/L (0.60-1.99) 07/19/17 13:50 Calcium 12.3 mg/dL (8.6-10.3) H 07/22/17 04:15 Total Bilirubin 0.7 mg/dL (0.3-1.0) 07/22/17 04:15 AST 34 U/L (13-39) 07/22/17 04:15 ALT 18 U/L (7-52) 07/22/17 04:15 Alkaline Phosphatase 155 U/L (34-104) H 07/22/17 04:15 Total Protein 8.0 gm/dL (6.0-8.3) 07/22/17 04:15 Albumin 2.1 gm/dL (4.2-5.5) L 07/22/17 04:15 Globulin 5.9 gm/dL 07/22/17 04:15 Albumin/Globulin Ratio 0.4 (1.0-1.8) L 07/22/17 04:15 Urine Source [place] 07/19/17 13:50 Urine Color YELLOW 07/19/17 13:50 Urine Clarity SLIGHTLY HAZY (CLEAR) 07/19/17 13:50 Urine pH 7.0 (4.6 - 8.0) 07/19/17 13:50 Ur Specific [place] 1.015 (1.005-1.030) 07/19/17 13:50 Urine Protein 30 mg/dL (NEGATIVE) H 07/19/17 13:50 Urine Glucose (UA) 100 mg/dL (NEGATIVE) H 07/19/17 13:50 Urine Ketones NEGATIVE mg/dL (NEGATIVE) 07/19/17 13:50 Urine Blood SMALL (NEGATIVE) H 07/19/17 13:50 Urine Nitrate NEGATIVE (NEGATIVE) 07/19/17 13:50 Urine Bilirubin NEGATIVE (NEGATIVE) 07/19/17 13:50 Urine Urobilinogen 0.2 E.U./dL (0.2 - 1.0) 07/19/17 13:50 Ur Leukocyte Esterase NEGATIVE (NEGATIVE) 07/19/17 13:50 Urine RBC 2-5 /hpf (0-5) H 07/19/17 13:50 Urine WBC 0-2 /hpf (0-5) 07/19/17 13:50 Ur Epithelial Cells OCCASIONAL /lpf (FEW) 07/19/17 13:50 Urine Bacteria NONE SEEN /hpf (NONE SEEN) 07/19/17 13:50 Stool Leukocyte NO WBC SEEN 07/13/17 10:00 Vancomycin Trough 24.8 ug/mL (10-20) H 07/14/17 04:26 - Physical Exam Vitals and I&O: Vital Signs Temp 99.4 F 07/22/17 04:00 Pulse 130 07/22/17 07:27 Resp 16 07/22/17 06:00 BP 122/68 07/22/17 06:00 Pulse Ox 100 07/22/17 07:27 Intake & Output 07/21/17 07/22/17 07/22/17 18:59 06:59 18:59 Intake Total 150 2758.75 Output Total 1500 850 Balance -1350 1908.75 Weight (lbs) 44.906 kg 44.962 kg Intake: Intake, IV Amount 1888.75 Colistimethate 100 mg In 200 Sodium Chloride 0.9% 100 ml @ 100 mls/hr IV Q12H [facility] Rx#:[id number] D5-0.45NS 1,000 ml @ 75 1688.75 mls/hr IV .[id number] [facility] Rx #:[id number] Tube Feeding 0 720 Other 150 150 Output: Urine 1500 850 Stool 0 Other: # Bowel Movements 1 Stool Characteristics Soft Brown Active Medications: Current Medications Acetaminophen (Tylenol 650mg/20.3ml Suspension) 640 mg GT Q4H PRN PRN Reason: Pain or Fever >101 Stop: 09/10/17 13:43 Last Admin: 07/21/17 17:13 Dose: 640 mg Albuterol Sulfate (Albuterol 2.5mg/3ml Neb Ud) 1.25 mg HHN Q6HRT [facility] Stop: 09/11/17 00:59 Last Admin: 07/22/17 07:27 Dose: 1.25 mg Artificial Tears (Artificial Tears Ophth Soln) 1 drop EACH EYE Q4HR [facility] Stop: 09/10/17 15:59 Last Admin: 07/22/17 08:30 Dose: 1 drop Ascorbic Acid (Vitamin C) 500 mg GT DAILY [facility] Stop: 09/10/17 14:59 Last Admin: 07/22/17 08:29 Dose: 500 mg Chlorhexidine Gluconate (Peridex) 15 ml MM 08,1999 [facility] Stop: 09/10/17 19:59 Last Admin: 07/22/17 08:30 Dose: 15 ml Digoxin (Lanoxin) 0.125 mg GT MWF [facility] Stop: 09/10/17 14:59 Last Admin: 07/21/17 09:07 Dose: 0.125 mg Folic Acid (Folate) 1 mg GT DAILY [facility] Stop: 09/10/17 14:59 Last Admin: 07/22/17 08:29 Dose: 1 mg Hydroxyzine HCl (Atarax) 25 mg GT TID [facility] PRN Reason: Protocol Stop: 09/12/17 16:59 Last Admin: 07/22/17 08:29 Dose: 25 mg Dextrose/Sodium Chloride (D5-0.45ns) 1,000 mls @ 75 mls/hr IV .[id number] [facility] Stop: 09/11/17 14:14 Last Infusion: 07/22/17 06:00 Dose: 75 mls/hr Colistimethate Sodium 100 mg/ (Sodium Chloride) 100 mls @ 100 mls/hr IV Q12H [facility] Stop: 09/13/17 13:59 Last Infusion: 07/22/17 03:10 Dose: Infused Ipratropium [place] (Atrovent Neb 0.5mg/2.5ml) 0.5 mg HHN Q6HRT [facility] Stop: 09/11/17 00:59 Last Admin: 07/22/17 07:27 Dose: 0.5 mg Metoclopramide HCl (Reglan) 5 mg GT DAILY [facility] Stop: 09/10/17 14:59 Last Admin: 07/22/17 08:29 Dose: 5 mg Miscellaneous (Vte Chemical Prophylaxis Screen/ Admission) 1 ea [facility] PRN PRN PRN Reason: PROTOCOL Stop: 09/10/17 19:00 Morphine Sulfate (Morphine) 15 mg GT BID [facility] Stop: 09/15/17 16:59 Last Admin: 07/22/17 08:40 Dose: Not Given Morphine Sulfate (Morphine) 2 mg IV Q4HR PRN PRN Reason: Pain (Severe) Stop: 09/15/17 09:32 Last Admin: 07/19/17 17:44 Dose: 2 mg Multivitamins/Vitamin C (Theragran) 1 tab GT DAILY [facility] Stop: 09/10/17 14:59 Last Admin: 07/22/17 08:29 Dose: 1 tab Ondansetron HCl (Zofran Odt) 4 mg SL Q6H PRN PRN Reason: Nausea Stop: 09/10/17 13:43 Pantoprazole Sodium (Protonix) 40 mg GT BIDAC [facility] Stop: 09/10/17 16:29 Last Admin: 07/22/17 08:29 Dose: 40 mg Senna (Senna) 8.6 mg GT HS [facility] Stop: 09/10/17 20:59 Last Admin: 07/21/17 20:58 Dose: 8.6 mg Thiamine HCl (Vitamin B1) 100 mg GT DAILY [facility] Stop: 09/10/17 14:59 Last Admin: 07/22/17 08:29 Dose: 100 mg Zinc Sulfate (Zinc Sulfate) 220 mg GT DAILY [facility] Stop: 09/10/17 14:59 Last Admin: 07/22/17 08:29 Dose: 220 mg - Procedures Procedures: Procedures Procedure Code Date RESPIRATORY VENTILATION, GREATER THAN 96 CONSECUTIVE HOURS [id number] 07/12/17 Nutritional Asmnt/Malnutr-PDOC - Dietary Evaluation Malnutrition Findings (Please click <Entered> for more info): Nutritional Asmnt/Malnutrition Start: 07/13/17 14: 18 Text: Status: Complete Freq: Document 07/13/17 14:18 LCHENG (Rec: 07/13/17 14:25 SUSAN [email or web address]) Nutritional Asmnt/Malnutrition Patient General Information Nutritional Screening High Risk Consult Diagnosis PNA Pertinent Medical Hx/Surgical Hx PUD, GERD, respiratory failure , cirrhosis, anemia, dysphagia , a fib, PEG/GERD Subjective Information Consult received for ayaan < 12. Pt seen on vent via trach. Verified tube feeding running at 60ml/hr at this time. Spoke with RN, pt tolerated TF well. Pt had diarrhea from last night, c diff test ordered. Current Diet Order/ Nutrition Support FIbersource HN 60ml/hr x 20hr Pertinent Medications vit C, D5-0.45ns, folate, reglan, theragran, protonix, piperacillin, senna, vit B1, vancomycin, Zinc Pertinent Labs 07/12 Na 130, K 4.3, Cl 96, BUN 17, Cr 0.6, Glucose 90, Alb 2 .2 Nutritional Hx/Data Height 1.63 m Height (Calculated Centimeters) 162.6 Current Weight (lbs) 44.452 kg Weight (Calculated Kilograms) 44.5 Weight (Calculated Grams) 22425.1 [place] Body Weight 130 Body Mass Index (BMI) 16.8 Weight Status Underweight GI Symptoms GI Symptoms Diarrhea Last BM 07/13 Difficult in: None Skin Integrity/Comment: open wound to buttocks, ulceration to right calf, bruise to biletarl upper and lower extremities, discoloration to sacrum Estimated Nutritional Goals Calories/Kcals/Kg 23-27 Kcals Calculated 4842-0983 Protein g/k-1.2 Protein Calculated 54-65 Fluid: ml 1242-1458ml (1ml/kcal) Nutritional Problem 1. Problem Problem increased nutrition needs ( protein) Etiology increased metabolic demand for wound healing Signs/Symptoms: open wound, ulceration Intervention/Recommendation Comments 1. Continue with current TF regimen. It provides 1400kcal, 65g protein, 972ml free water , meeting 100% of nutritional needs 2. Monitor TF rate, tolerance, wt weekly, skin integrity and labs 3. F/U as moderate risk in 3-5 days, 03/31-04/02 Expected Outcomes/Goals Expected Outcomes/Goals 1. Pt to meet at least 75% of nutritional needs via nutrition support with tolerance 2. Wt stability, skin to remain intact, labs to approach WNL.
[2017-07-22] MEDS: D5-0.45NS 1,000 ML IV SCH (14:16)
--- NOTE | 2017-07-22 15:54 | Infectious Disease Prog Note ---
Infectious Disease Subjective - Review of Systems Service Date: 07/22/17 Subjective: Remains on ventilator, status post tracheostomy. Infectious Disease Objective - Results Result Diagrams: 07/22/17 04:15 07/22/17 04:15 Recent Labs: Laboratory Last Values WBC 13.3 Th/cmm (4.8-10.8) H 07/22/17 04:15 RBC 2.84 Mil/cmm (4.30-5.70) L 07/22/17 04:15 Hgb 9.1 gm/dL (12-16) L 07/22/17 04:15 Hct 27.5 % (41.0-60) L 07/22/17 04:15 MCV 97.0 fl (80-99) 07/22/17 04:15 MCH 31.9 pg (26.0-30.0) H 07/22/17 04:15 MCHC Differential 32.9 pg (28.0-36.0) 07/22/17 04:15 RDW 20.5 % (11.5-20.0) H 07/22/17 04:15 Plt Count 192 Th/cmm (150-400) 07/22/17 04:15 MPV 8.4 fl 07/22/17 04:15 Neutrophils % 74.1 % (40.0-80.0) 07/22/17 04:15 Band Neutrophils % 6 % (0-10) 07/11/17 19:46 Lymphocytes % 8.8 % (20.0-50.0) L 07/22/17 04:15 Monocytes % 6.5 % (2.0-10.0) 07/22/17 04:15 Eosinophils % 10.6 % (0.0-5.0) H 07/22/17 04:15 Basophils % 0.0 % (0.0-2.0) 07/22/17 04:15 Neutrophils (Manual) 73 % (40-80) 07/17/17 04:21 Lymphocytes 5 % (20-50) L 07/17/17 04:21 Monocytes 2 % (2-10) 07/17/17 04:21 Eosinophils 20 % (0-5) H 07/17/17 04:21 Basophils 0 % (0-3) 07/11/17 19:46 Platelet Estimate ADEQUATE (NORMAL) 07/17/17 04:21 Platelet Morphology NORMAL (NORMAL) 07/11/17 19:46 Anisocytosis 1+ 07/11/17 19:46 RBC Morph Micro Appear ABNORMAL (NORMAL) 07/11/17 19:46 Specimen Source ARTERIAL 07/12/17 06:00 Sample Site Right Radial 07/12/17 06:00 pH 7.45 (7.35-7.45) 07/12/17 06:00 pCO2 50.0 mmHg (35.0-45.0) H 07/12/17 06:00 pO2 100.0 mmHg (80.0-100.0) 07/12/17 06:00 HCO3 32.2 mEq/L (20.0-26.0) H 07/12/17 06:00 Base Excess 9.3 mEq/L (-3.0-3.0) H 07/12/17 06:00 O2 Saturation 98.0 % (92.0-100.0) 07/12/17 06:00 Jose Test Positive 07/12/17 06:00 Vent Rate 24 07/12/17 06:00 Inspired O2 40 07/12/17 06:00 Tidal Volume NA 07/12/17 06:00 PEEP 5 07/12/17 06:00 Pressure (ins/psv/peep) 25 07/12/17 06:00 Critical Value SC 07/12/17 06:00 Sodium 130 mEq/L (136-145) L 07/22/17 04:15 Potassium 3.6 mEq/L (3.5-5.1) 07/22/17 04:15 Chloride 105 mEq/L (98-107) 07/22/17 04:15 Carbon Dioxide 23.4 mEq/L (21.0-31.0) 07/22/17 04:15 Anion Gap 5.2 (7.0-16.0) L 07/22/17 04:15 BUN 21 mg/dL (7-25) 07/22/17 04:15 Creatinine 1.3 mg/dL (0.7-1.3) 07/22/17 04:15 Est GFR ( Amer) > 60.0 ml/min (>90) 07/22/17 04:15 Est GFR (Non-Af Amer) > 60.0 ml/min 07/22/17 04:15 BUN/Creatinine Ratio 16.2 07/22/17 04:15 Glucose 99 mg/dL (70-105) 07/22/17 04:15 POC Glucose 99 MG/DL (70 - 105) 07/15/17 13:48 Whole Bld Lactic Acid 1.10 mmol/L (0.60-1.99) 07/19/17 13:50 Calcium 12.3 mg/dL (8.6-10.3) H 07/22/17 04:15 Total Bilirubin 0.7 mg/dL (0.3-1.0) 07/22/17 04:15 AST 34 U/L (13-39) 07/22/17 04:15 ALT 18 U/L (7-52) 07/22/17 04:15 Alkaline Phosphatase 155 U/L (34-104) H 07/22/17 04:15 Total Protein 8.0 gm/dL (6.0-8.3) 07/22/17 04:15 Albumin 2.1 gm/dL (4.2-5.5) L 07/22/17 04:15 Globulin 5.9 gm/dL 07/22/17 04:15 Albumin/Globulin Ratio 0.4 (1.0-1.8) L 07/22/17 04:15 Urine Source [place] 07/19/17 13:50 Urine Color YELLOW 07/19/17 13:50 Urine Clarity SLIGHTLY HAZY (CLEAR) 07/19/17 13:50 Urine pH 7.0 (4.6 - 8.0) 07/19/17 13:50 Ur Specific [place] 1.015 (1.005-1.030) 07/19/17 13:50 Urine Protein 30 mg/dL (NEGATIVE) H 07/19/17 13:50 Urine Glucose (UA) 100 mg/dL (NEGATIVE) H 07/19/17 13:50 Urine Ketones NEGATIVE mg/dL (NEGATIVE) 07/19/17 13:50 Urine Blood SMALL (NEGATIVE) H 07/19/17 13:50 Urine Nitrate NEGATIVE (NEGATIVE) 07/19/17 13:50 Urine Bilirubin NEGATIVE (NEGATIVE) 07/19/17 13:50 Urine Urobilinogen 0.2 E.U./dL (0.2 - 1.0) 07/19/17 13:50 Ur Leukocyte Esterase NEGATIVE (NEGATIVE) 07/19/17 13:50 Urine RBC 2-5 /hpf (0-5) H 07/19/17 13:50 Urine WBC 0-2 /hpf (0-5) 07/19/17 13:50 Ur Epithelial Cells OCCASIONAL /lpf (FEW) 07/19/17 13:50 Urine Bacteria NONE SEEN /hpf (NONE SEEN) 07/19/17 13:50 Stool Leukocyte NO WBC SEEN 07/13/17 10:00 Vancomycin Trough 24.8 ug/mL (10-20) H 07/14/17 04:26 - Physical Exam Vitals and I&O: Vital Signs Temp 98.9 F 07/22/17 10:00 Pulse 111 07/22/17 13:46 Resp 25 07/22/17 13:00 BP 107/58 07/22/17 13:00 Pulse Ox 100 07/22/17 14:00 Intake & Output 07/21/17 07/22/17 07/22/17 18:59 06:59 18:59 Intake Total 150 2758.75 311.25 Output Total 1500 850 Balance -1350 1908.75 311.25 Weight (lbs) 44.906 kg 44.962 kg Intake: Intake, IV Amount 1888.75 311.25 Colistimethate 100 mg In 200 Sodium Chloride 0.9% 100 ml @ 100 mls/hr IV Q12H [facility] Rx#:[id number] D5-0.45NS 1,000 ml @ 75 1688.75 311.25 mls/hr IV .[id number] [facility] Rx #:[id number] Tube Feeding 0 720 Other 150 150 Output: Urine 1500 850 Stool 0 Other: # Bowel Movements 1 Stool Characteristics Soft Soft Brown Brown Active Medications: Current Medications Acetaminophen (Tylenol 650mg/20.3ml Suspension) 640 mg GT Q4H PRN PRN Reason: Pain or Fever >101 Stop: 09/10/17 13:43 Last Admin: 07/21/17 17:13 Dose: 640 mg Albuterol Sulfate (Albuterol 2.5mg/3ml Neb Ud) 1.25 mg HHN Q6HRT [facility] Stop: 09/11/17 00:59 Last Admin: 07/22/17 13:46 Dose: 1.25 mg Artificial Tears (Artificial Tears Ophth Soln) 1 drop EACH EYE Q4HR [facility] Stop: 09/10/17 15:59 Last Admin: 07/22/17 12:00 Dose: 1 drop Ascorbic Acid (Vitamin C) 500 mg GT DAILY [facility] Stop: 09/10/17 14:59 Last Admin: 07/22/17 08:29 Dose: 500 mg Chlorhexidine Gluconate (Peridex) 15 ml MM 08,1999 [facility] Stop: 09/10/17 19:59 Last Admin: 07/22/17 08:30 Dose: 15 ml Digoxin (Lanoxin) 0.125 mg GT MWF [facility] Stop: 09/10/17 14:59 Last Admin: 07/21/17 09:07 Dose: 0.125 mg Folic Acid (Folate) 1 mg GT DAILY [facility] Stop: 09/10/17 14:59 Last Admin: 07/22/17 08:29 Dose: 1 mg Hydroxyzine HCl (Atarax) 25 mg GT TID [facility]DA PRN Reason: Protocol Stop: 09/12/17 16:59 Last Admin: 07/22/17 14:15 Dose: 25 mg Dextrose/Sodium Chloride (D5-0.45ns) 1,000 mls @ 75 mls/hr IV .[id number] [facility] Stop: 09/11/17 14:14 Last Admin: 07/22/17 14:16 Dose: 75 mls/hr Colistimethate Sodium 100 mg/ (Sodium Chloride) 100 mls @ 100 mls/hr IV Q12H [facility] Stop: 09/13/17 13:59 Last Admin: 07/22/17 14:25 Dose: 100 mls/hr Ipratropium [place] (Atrovent Neb 0.5mg/2.5ml) 0.5 mg HHN Q6HRT [facility] Stop: 09/11/17 00:59 Last Admin: 07/22/17 13:45 Dose: 0.5 mg Metoclopramide HCl (Reglan) 5 mg GT DAILY [facility] Stop: 09/10/17 14:59 Last Admin: 07/22/17 08:29 Dose: 5 mg Miscellaneous (Vte Chemical Prophylaxis Screen/ Admission) 1 ea MC PRN PRN PRN Reason: PROTOCOL Stop: 09/10/17 19:00 Morphine Sulfate (Morphine) 15 mg GT BID [facility] Stop: 09/15/17 16:59 Last Admin: 07/22/17 10:02 Dose: 15 mg Morphine Sulfate (Morphine) 2 mg IV Q4HR PRN PRN Reason: Pain (Severe) Stop: 09/15/17 09:32 Last Admin: 07/19/17 17:44 Dose: 2 mg Multivitamins/Vitamin C (Theragran) 1 tab GT DAILY [facility] Stop: 09/10/17 14:59 Last Admin: 07/22/17 08:29 Dose: 1 tab Ondansetron HCl (Zofran Odt) 4 mg SL Q6H PRN PRN Reason: Nausea Stop: 09/10/17 13:43 Pantoprazole Sodium (Protonix) 40 mg GT BIDAC [facility] Stop: 09/10/17 16:29 Last Admin: 07/22/17 08:29 Dose: 40 mg Senna (Senna) 8.6 mg GT HS [facility] Stop: 09/10/17 20:59 Last Admin: 07/21/17 20:58 Dose: 8.6 mg Thiamine HCl (Vitamin B1) 100 mg GT DAILY [facility] Stop: 09/10/17 14:59 Last Admin: 07/22/17 08:29 Dose: 100 mg Zinc Sulfate (Zinc Sulfate) 220 mg GT DAILY [facility] Stop: 09/10/17 14:59 Last Admin: 07/22/17 08:29 Dose: 220 mg General: no acute distress, cachectic HEENT: atraumatic, normocephalic, PERRLA, EOMI Neck: supple, thyromegaly, tracheostomy Cardiovascular: S1S2, no regular Lungs: clear to auscultation bilaterally, clear to percussion Abdomen: soft, no tender, no distended Extremities: no cyanosis, no clubbing Neurological: awake, alert - Procedures Procedures: Procedures Procedure Code Date RESPIRATORY VENTILATION, GREATER THAN 96 CONSECUTIVE HOURS [id number] 07/12/17 Infectious Disease Assmt/Plan - Assessment Assessment: Impression: 1. Diarrhea. stool for C diff : neg. 2. Pneumonia. MDRO pseudomonas. 3. Leukocytosis. 4. Cirrhosis. 5. Afib, currently NSR. 6. h/o alcohol abuse. 7. Protein calorie malnutrition. 8. decubitus, sacral. There is no sign of infection,. 9. left leg decubitus ulcer. - Plan Plan: Continue colistin. Nutritional Asmnt/Malnutr-PDOC - Dietary Evaluation Malnutrition Findings (Please click <Entered> for more info): Nutritional Asmnt/Malnutrition Start: 07/13/17 14: 18 Text: Status: Complete Freq: Document 07/13/17 14:18 GRZEGORZ (Rec: 07/13/17 14:25 GRZEGORZ [email or web address]) Nutritional Asmnt/Malnutrition Patient General Information Nutritional Screening High Risk Consult Diagnosis PNA Pertinent Medical Hx/Surgical Hx PUD, GERD, respiratory failure , cirrhosis, anemia, dysphagia , a fib, PEG/GERD Subjective Information Consult received for ayaan < 12. Pt seen on vent via trach. Verified tube feeding running at 60ml/hr at this time. Spoke with RN, pt tolerated TF well. Pt had diarrhea from last night, c diff test ordered. Current Diet Order/ Nutrition Support [employer] HN 60ml/hr x 20hr Pertinent Medications vit C, D5-0.45ns, folate, reglan, theragran, protonix, piperacillin, senna, vit B1, vancomycin, Zinc Pertinent Labs 07/12 Na 130, K 4.3, Cl 96, BUN 17, Cr 0.6, Glucose 90, Alb 2 .2 Nutritional Hx/Data Height 1.63 m Height (Calculated Centimeters) 162.6 Current Weight (lbs) 44.452 kg Weight (Calculated Kilograms) 44.5 Weight (Calculated Grams) 07263.1 [place] Body Weight 130 Body Mass Index (BMI) 16.8 Weight Status Underweight GI Symptoms GI Symptoms Diarrhea Last BM 07/13 Difficult in: None Skin Integrity/Comment: open wound to buttocks, ulceration to right calf, bruise to biletarl upper and lower extremities, discoloration to sacrum Estimated Nutritional Goals Calories/Kcals/Kg 23-27 Kcals Calculated 4939-1011 Protein g/k-1.2 Protein Calculated 54-65 Fluid: ml 1242-1458ml (1ml/kcal) Nutritional Problem 1. Problem Problem increased nutrition needs ( protein) Etiology increased metabolic demand for wound healing Signs/Symptoms: open wound, ulceration Intervention/Recommendation Comments 1. Continue with current TF regimen. It provides 1400kcal, 65g protein, 972ml free water , meeting 100% of nutritional needs 2. Monitor TF rate, tolerance, wt weekly, skin integrity and labs 3. F/U as moderate risk in 3-5 days, 03/31-04/02 Expected Outcomes/Goals Expected Outcomes/Goals 1. Pt to meet at least 75% of nutritional needs via nutrition support with tolerance 2. Wt stability, skin to remain intact, labs to approach WNL.
[2017-07-23] MEDS: Polyvinyl Alcohol Ophth Soln 15 mL Bottle EACH EYE SCH ×6 (00:19→20:13)
[2017-07-23] MEDS: Albuterol Nebulizer 2.5mg/3mL HHN SCH ×4 (00:50→19:08)
[2017-07-23] MEDS: Ipratropium Neb 0.5 mg/2.5 mL UD HHN SCH ×4 (00:50→19:07)
[2017-07-23] MEDS: Diltiazem 30 mg Tab PO PRN ×3 (02:56→23:27)
[2017-07-23 04:35] LABS: % BASOPHILS 0.9 % (0.0-2.0); % EOSINOPHILS 12.1 % (0.0-5.0); % LYMPHOCYTES 9.3 % (20.0-50.0); % MONOCYTES 10.9 % (2.0-10.0); % NEUTROPHILS 66.8 % (40.0-80.0); BASOPHILE ABSOLUTE 0.1 Th/cumm (0-0.2); EOSINOPHILE ABSOLUTE 1.9 Th/cmm (0.1-0.4); HEMOGLOBIN 8.6 gm/dL (12-16); LYMPHOCYTE ABSOLUTE 1.4 Th/cmm (1.5-3.0); MEAN CELL VOLUME 97.5 fl (80-99); MEAN CORPUSCULAR HEMOGLOBIN 32.2 pg (26.0-30.0); MEAN CORPUSCULAR HGB CONC 33.1 pg (28.0-36.0); MEAN PLATELET VOLUME 8.4 fl; MONOCYTE ABSOLUTE 1.7 Th/cmm (0.3-1.0); NEUTROPHILE ABSOLUTE 10.4 Th/cmm (1.8-8.0); RED BLOOD COUNT 2.67 Mil/cmm (4.30-5.70); RED CELL DISTRIBUTION WIDTH 19.8 % (11.5-20.0)
[2017-07-23 04:59] LABS: WHITE BLOOD COUNT 15.5 Th/cmm (4.8-10.8)
[2017-07-23 05:00] LABS: PLATELET COUNT 244 Th/cmm (150-400)
[2017-07-23 06:14] LABS: BUN - UREA NITROGEN 20 mg/dL (7-25); CHLORIDE 105 mEq/L (98-107); CREATININE - SERUM 1.4 mg/dL (0.7-1.3); GFR AFRICAN-AMERICAN > 60.0 ml/min (>90); GFR NON AFRICAN-AMERICAN 56.1 ml/min; GLUCOSE 116 mg/dL (70-105); SODIUM SERUM 130 mEq/L (136-145)
[2017-07-23 06:17] LABS: CALCIUM SERUM 13.1 mg/dL (8.6-10.3)
[2017-07-23] MEDS ORDERED: Sodium Chloride 0.9% 1,000 ML IV SCH (07:09)
[2017-07-23] MEDS ORDERED: KCL 20mEq/100mL Premix 20 MEQ/100 ML PIGGYBACK IV SCH (07:15)
[2017-07-23] MEDS: Chlorhexidine Gluconate 0.12% 15mL Mouthwash MM SCH ×2 (08:15→20:12)
[2017-07-23] MEDS: Pantoprazole 40 mg/Packet GT SCH ×2 (08:15→17:25)
[2017-07-23] MEDS: Multivitamin Tab GT SCH (08:58)
[2017-07-23] MEDS: Morphine 10 mg/5 ml 5mL UDC GT SCH ×3 (08:59→17:27)
--- NOTE | 2017-07-23 14:43 | Infectious Disease Prog Note ---
Infectious Disease Subjective - Review of Systems Service Date: 07/23/17 Subjective: Remains on ventilator, status post tracheostomy. Infectious Disease Objective - Results Result Diagrams: 07/23/17 04:05 07/23/17 04:05 Recent Labs: Laboratory Last Values WBC 15.5 Th/cmm (4.8-10.8) H 07/23/17 04:05 RBC 2.67 Mil/cmm (4.30-5.70) L 07/23/17 04:05 Hgb 8.6 gm/dL (12-16) L 07/23/17 04:05 Hct 26.0 % (41.0-60) L 07/23/17 04:05 MCV 97.5 fl (80-99) 07/23/17 04:05 MCH 32.2 pg (26.0-30.0) H 07/23/17 04:05 MCHC Differential 33.1 pg (28.0-36.0) 07/23/17 04:05 RDW 19.8 % (11.5-20.0) 07/23/17 04:05 Plt Count 244 Th/cmm (150-400) D 07/23/17 04:05 MPV 8.4 fl 07/23/17 04:05 Neutrophils % 66.8 % (40.0-80.0) 07/23/17 04:05 Band Neutrophils % 6 % (0-10) 07/11/17 19:46 Lymphocytes % 9.3 % (20.0-50.0) L 07/23/17 04:05 Monocytes % 10.9 % (2.0-10.0) H 07/23/17 04:05 Eosinophils % 12.1 % (0.0-5.0) H 07/23/17 04:05 Basophils % 0.9 % (0.0-2.0) 07/23/17 04:05 Neutrophils (Manual) 73 % (40-80) 07/17/17 04:21 Lymphocytes 5 % (20-50) L 07/17/17 04:21 Monocytes 2 % (2-10) 07/17/17 04:21 Eosinophils 20 % (0-5) H 07/17/17 04:21 Basophils 0 % (0-3) 07/11/17 19:46 Platelet Estimate ADEQUATE (NORMAL) 07/17/17 04:21 Platelet Morphology NORMAL (NORMAL) 07/11/17 19:46 Anisocytosis 1+ 07/11/17 19:46 RBC Morph Micro Appear ABNORMAL (NORMAL) 07/11/17 19:46 Specimen Source ARTERIAL 07/12/17 06:00 Sample Site Right Radial 07/12/17 06:00 pH 7.45 (7.35-7.45) 07/12/17 06:00 pCO2 50.0 mmHg (35.0-45.0) H 07/12/17 06:00 pO2 100.0 mmHg (80.0-100.0) 07/12/17 06:00 HCO3 32.2 mEq/L (20.0-26.0) H 07/12/17 06:00 Base Excess 9.3 mEq/L (-3.0-3.0) H 07/12/17 06:00 O2 Saturation 98.0 % (92.0-100.0) 07/12/17 06:00 Jose Test Positive 07/12/17 06:00 Vent Rate 24 07/12/17 06:00 Inspired O2 40 07/12/17 06:00 Tidal Volume NA 07/12/17 06:00 PEEP 5 07/12/17 06:00 Pressure (ins/psv/peep) 25 07/12/17 06:00 Critical Value SC 07/12/17 06:00 Sodium 130 mEq/L (136-145) L 07/23/17 04:05 Potassium 3.0 mEq/L (3.5-5.1) L 07/23/17 04:05 Chloride 105 mEq/L (98-107) 07/23/17 04:05 Carbon Dioxide 24.0 mEq/L (21.0-31.0) 07/23/17 04:05 Anion Gap 4.0 (7.0-16.0) L 07/23/17 04:05 BUN 20 mg/dL (7-25) 07/23/17 04:05 Creatinine 1.4 mg/dL (0.7-1.3) H 07/23/17 04:05 Est GFR ( Amer) > 60.0 ml/min (>90) 07/23/17 04:05 Est GFR (Non-Af Amer) 56.1 ml/min 07/23/17 04:05 BUN/Creatinine Ratio 14.3 07/23/17 04:05 Glucose 116 mg/dL (70-105) H 07/23/17 04:05 POC Glucose 99 MG/DL (70 - 105) 07/15/17 13:48 Whole Bld Lactic Acid 1.10 mmol/L (0.60-1.99) 07/19/17 13:50 Calcium 13.1 mg/dL (8.6-10.3) H* 07/23/17 04:05 Total Bilirubin 0.7 mg/dL (0.3-1.0) 07/22/17 04:15 AST 34 U/L (13-39) 07/22/17 04:15 ALT 18 U/L (7-52) 07/22/17 04:15 Alkaline Phosphatase 155 U/L (34-104) H 07/22/17 04:15 Total Protein 8.0 gm/dL (6.0-8.3) 07/22/17 04:15 Albumin 2.1 gm/dL (4.2-5.5) L 07/22/17 04:15 Globulin 5.9 gm/dL 07/22/17 04:15 Albumin/Globulin Ratio 0.4 (1.0-1.8) L 07/22/17 04:15 Urine Source [place] 07/19/17 13:50 Urine Color YELLOW 07/19/17 13:50 Urine Clarity SLIGHTLY HAZY (CLEAR) 07/19/17 13:50 Urine pH 7.0 (4.6 - 8.0) 07/19/17 13:50 Ur Specific [place] 1.015 (1.005-1.030) 07/19/17 13:50 Urine Protein 30 mg/dL (NEGATIVE) H 07/19/17 13:50 Urine Glucose (UA) 100 mg/dL (NEGATIVE) H 07/19/17 13:50 Urine Ketones NEGATIVE mg/dL (NEGATIVE) 07/19/17 13:50 Urine Blood SMALL (NEGATIVE) H 07/19/17 13:50 Urine Nitrate NEGATIVE (NEGATIVE) 07/19/17 13:50 Urine Bilirubin NEGATIVE (NEGATIVE) 07/19/17 13:50 Urine Urobilinogen 0.2 E.U./dL (0.2 - 1.0) 07/19/17 13:50 Ur Leukocyte Esterase NEGATIVE (NEGATIVE) 07/19/17 13:50 Urine RBC 2-5 /hpf (0-5) H 07/19/17 13:50 Urine WBC 0-2 /hpf (0-5) 07/19/17 13:50 Ur Epithelial Cells OCCASIONAL /lpf (FEW) 07/19/17 13:50 Urine Bacteria NONE SEEN /hpf (NONE SEEN) 07/19/17 13:50 Stool Leukocyte NO WBC SEEN 07/13/17 10:00 Vancomycin Trough 24.8 ug/mL (10-20) H 07/14/17 04:26 - Physical Exam Vitals and I&O: Vital Signs Temp 98.6 F 07/23/17 13:00 Pulse 94 07/23/17 13:15 Resp 19 07/23/17 13:00 BP 97/52 07/23/17 13:00 Pulse Ox 100 07/23/17 13:15 Intake & Output 07/22/17 07/23/17 07/23/17 18:59 06:59 18:59 Intake Total 411.25 240 Output Total 850 Balance 411.25 -610 Weight (lbs) 44.906 kg Intake: Intake, IV Amount 411.25 Colistimethate 100 mg In 100 Sodium Chloride 0.9% 100 ml @ 100 mls/hr IV Q12H [facility] Rx#:[id number] D5-0.45NS 1,000 ml @ 75 311.25 mls/hr IV .[id number] [facility] Rx #:[id number] Other 240 Output: Urine 850 Other: # Bowel Movements 1 Stool Characteristics Soft Soft Soft Brown Brown Brown Active Medications: Current Medications Acetaminophen (Tylenol 650mg/20.3ml Suspension) 640 mg GT Q4H PRN PRN Reason: Pain or Fever >101 Stop: 09/10/17 13:43 Last Admin: 07/23/17 02:15 Dose: 640 mg Albuterol Sulfate (Albuterol 2.5mg/3ml Neb Ud) 1.25 mg HHN Q6HRT MANDA Stop: 09/11/17 00:59 Last Admin: 07/23/17 13:14 Dose: 1.25 mg Artificial Tears (Artificial Tears Ophth Soln) 1 drop EACH EYE Q4HR [facility]DA Stop: 09/10/17 15:59 Last Admin: 07/23/17 11:43 Dose: 1 drop Ascorbic Acid (Vitamin C) 500 mg GT DAILY MANDA Stop: 09/10/17 14:59 Last Admin: 07/23/17 08:58 Dose: 500 mg Chlorhexidine Gluconate (Peridex) 15 ml MM 0800,1999 [facility] Stop: 09/10/17 19:59 Last Admin: 07/23/17 08:15 Dose: 15 ml Digoxin (Lanoxin) 0.125 mg GT MWF [facility] Stop: 09/10/17 14:59 Last Admin: 07/23/17 09:00 Dose: Not Given Diltiazem HCl (Cardizem) 30 mg PO Q6HR PRN PRN Reason: HR>120 Stop: 09/21/17 02:44 Last Admin: 07/23/17 02:56 Dose: 30 mg Folic Acid (Folate) 1 mg GT DAILY [facility] Stop: 09/10/17 14:59 Last Admin: 07/23/17 08:58 Dose: 1 mg Hydroxyzine HCl (Atarax) 25 mg GT TID MANDA PRN Reason: Protocol Stop: 09/12/17 16:59 Last Admin: 07/23/17 13:53 Dose: 25 mg Sodium Chloride (Nacl 0.9%) 1,000 mls @ 75 mls/hr IV .[id number] [facility] Stop: 09/21/17 07:08 Last Admin: 07/23/17 08:26 Dose: 75 mls/hr Ipratropium [place] (Atrovent Neb 0.5mg/2.5ml) 0.5 mg HHN Q6HRT [facility] Stop: 09/11/17 00:59 Last Admin: 07/23/17 13:14 Dose: 0.5 mg Metoclopramide HCl (Reglan) 5 mg GT DAILY [facility] Stop: 09/10/17 14:59 Last Admin: 07/23/17 09:02 Dose: 5 mg Miscellaneous (Vte Chemical Prophylaxis Screen/ Admission) 1 ea [facility] PRN PRN PRN Reason: PROTOCOL Stop: 09/10/17 19:00 Morphine Sulfate (Morphine) 15 mg GT BID [facility] Stop: 09/15/17 16:59 Last Admin: 07/23/17 09:00 Dose: 15 mg Morphine Sulfate (Morphine) 2 mg IV Q4HR PRN PRN Reason: Pain (Severe) Stop: 09/15/17 09:32 Last Admin: 07/19/17 17:44 Dose: 2 mg Multivitamins/Vitamin C (Theragran) 1 tab GT DAILY [facility] Stop: 09/10/17 14:59 Last Admin: 07/23/17 08:58 Dose: 1 tab Ondansetron HCl (Zofran Odt) 4 mg SL Q6H PRN PRN Reason: Nausea Stop: 09/10/17 13:43 Pantoprazole Sodium (Protonix) 40 mg GT BIDAC MANDA Stop: 09/10/17 16:29 Last Admin: 07/23/17 08:15 Dose: 40 mg Senna (Senna) 8.6 mg GT HS [facility] Stop: 09/10/17 20:59 Last Admin: 07/22/17 21:33 Dose: 8.6 mg Thiamine HCl (Vitamin B1) 100 mg GT DAILY [facility] Stop: 09/10/17 14:59 Last Admin: 07/23/17 08:58 Dose: 100 mg Zinc Sulfate (Zinc Sulfate) 220 mg GT DAILY [facility] Stop: 09/10/17 14:59 Last Admin: 07/23/17 08:58 Dose: 220 mg General: no acute distress, cachectic HEENT: atraumatic, normocephalic, PERRLA, EOMI Neck: supple, no thyromegaly Cardiovascular: S1S2, regular Lungs: clear to auscultation bilaterally, clear to percussion Abdomen: soft, no tender, no distended, no hepatomegaly Extremities: no cyanosis, no clubbing, no edema Neurological: awake, alert, oriented Skin: intact - Procedures Procedures: Procedures Procedure Code Date RESPIRATORY VENTILATION, GREATER THAN 96 CONSECUTIVE HOURS [id number] 07/12/17 Infectious Disease Assmt/Plan - Assessment Assessment: Impression: 1. Diarrhea. stool for C diff : neg. 2. Pneumonia. MDRO pseudomonas. 3. Leukocytosis. 4. Cirrhosis. 5. Afib, currently NSR. 6. h/o alcohol abuse. 7. Protein calorie malnutrition. 8. decubitus, sacral. There is no sign of infection,. 9. left leg decubitus ulcer. - Plan Plan: Continue colistin. Nutritional Asmnt/Malnutr-PDOC - Dietary Evaluation Malnutrition Findings (Please click <Entered> for more info): Nutritional Asmnt/Malnutrition Start: 07/13/17 14: 18 Text: Status: Complete Freq: Document 07/13/17 14:18 LCHENG (Rec: 07/13/17 14:25 [email or web address] Nutritional Asmnt/Malnutrition Patient General Information Nutritional Screening High Risk Consult Diagnosis PNA Pertinent Medical Hx/Surgical Hx PUD, GERD, respiratory failure , cirrhosis, anemia, dysphagia , a fib, PEG/GERD Subjective Information Consult received for ayaan < 12. Pt seen on vent via trach. Verified tube feeding running at 60ml/hr at this time. Spoke with RN, pt tolerated TF well. Pt had diarrhea from last night, c diff test ordered. Current Diet Order/ Nutrition Support FIbersource HN 60ml/hr x 20hr Pertinent Medications vit C, D5-0.45ns, folate, reglan, theragran, protonix, piperacillin, senna, vit B1, vancomycin, Zinc Pertinent Labs 07/12 Na 130, K 4.3, Cl 96, BUN 17, Cr 0.6, Glucose 90, Alb 2 .2 Nutritional Hx/Data Height 1.63 m Height (Calculated Centimeters) 162.6 Current Weight (lbs) 44.452 kg Weight (Calculated Kilograms) 44.5 Weight (Calculated Grams) 49927.1 [place] Body Weight 130 Body Mass Index (BMI) 16.8 Weight Status Underweight GI Symptoms GI Symptoms Diarrhea Last BM 07/13 Difficult in: None Skin Integrity/Comment: open wound to buttocks, ulceration to right calf, bruise to biletarl upper and lower extremities, discoloration to sacrum Estimated Nutritional Goals Calories/Kcals/Kg 23-27 Kcals Calculated 7516-2997 Protein g/k-1.2 Protein Calculated 54-65 Fluid: ml 1242-1458ml (1ml/kcal) Nutritional Problem 1. Problem Problem increased nutrition needs ( protein) Etiology increased metabolic demand for wound healing Signs/Symptoms: open wound, ulceration Intervention/Recommendation Comments 1. Continue with current TF regimen. It provides 1400kcal, 65g protein, 972ml free water , meeting 100% of nutritional needs 2. Monitor TF rate, tolerance, wt weekly, skin integrity and labs 3. F/U as moderate risk in 3-5 days, 03/31-04/02 Expected Outcomes/Goals Expected Outcomes/Goals 1. Pt to meet at least 75% of nutritional needs via nutrition support with tolerance 2. Wt stability, skin to remain intact, labs to approach WNL.
--- NOTE | 2017-07-23 14:46 | Infectious Disease Prog Note ---
Infectious Disease Subjective - Review of Systems Service Date: 07/23/17 Subjective: Remains on ventilator, status post tracheostomy. Infectious Disease Objective - Results Result Diagrams: 07/23/17 04:05 07/23/17 04:05 Recent Labs: Laboratory Last Values WBC 15.5 Th/cmm (4.8-10.8) H 07/23/17 04:05 RBC 2.67 Mil/cmm (4.30-5.70) L 07/23/17 04:05 Hgb 8.6 gm/dL (12-16) L 07/23/17 04:05 Hct 26.0 % (41.0-60) L 07/23/17 04:05 MCV 97.5 fl (80-99) 07/23/17 04:05 MCH 32.2 pg (26.0-30.0) H 07/23/17 04:05 MCHC Differential 33.1 pg (28.0-36.0) 07/23/17 04:05 RDW 19.8 % (11.5-20.0) 07/23/17 04:05 Plt Count 244 Th/cmm (150-400) D 07/23/17 04:05 MPV 8.4 fl 07/23/17 04:05 Neutrophils % 66.8 % (40.0-80.0) 07/23/17 04:05 Band Neutrophils % 6 % (0-10) 07/11/17 19:46 Lymphocytes % 9.3 % (20.0-50.0) L 07/23/17 04:05 Monocytes % 10.9 % (2.0-10.0) H 07/23/17 04:05 Eosinophils % 12.1 % (0.0-5.0) H 07/23/17 04:05 Basophils % 0.9 % (0.0-2.0) 07/23/17 04:05 Neutrophils (Manual) 73 % (40-80) 07/17/17 04:21 Lymphocytes 5 % (20-50) L 07/17/17 04:21 Monocytes 2 % (2-10) 07/17/17 04:21 Eosinophils 20 % (0-5) H 07/17/17 04:21 Basophils 0 % (0-3) 07/11/17 19:46 Platelet Estimate ADEQUATE (NORMAL) 07/17/17 04:21 Platelet Morphology NORMAL (NORMAL) 07/11/17 19:46 Anisocytosis 1+ 07/11/17 19:46 RBC Morph Micro Appear ABNORMAL (NORMAL) 07/11/17 19:46 Specimen Source ARTERIAL 07/12/17 06:00 Sample Site Right Radial 07/12/17 06:00 pH 7.45 (7.35-7.45) 07/12/17 06:00 pCO2 50.0 mmHg (35.0-45.0) H 07/12/17 06:00 pO2 100.0 mmHg (80.0-100.0) 07/12/17 06:00 HCO3 32.2 mEq/L (20.0-26.0) H 07/12/17 06:00 Base Excess 9.3 mEq/L (-3.0-3.0) H 07/12/17 06:00 O2 Saturation 98.0 % (92.0-100.0) 07/12/17 06:00 Jose Test Positive 07/12/17 06:00 Vent Rate 24 07/12/17 06:00 Inspired O2 40 07/12/17 06:00 Tidal Volume NA 07/12/17 06:00 PEEP 5 07/12/17 06:00 Pressure (ins/psv/peep) 25 07/12/17 06:00 Critical Value SC 07/12/17 06:00 Sodium 130 mEq/L (136-145) L 07/23/17 04:05 Potassium 3.0 mEq/L (3.5-5.1) L 07/23/17 04:05 Chloride 105 mEq/L (98-107) 07/23/17 04:05 Carbon Dioxide 24.0 mEq/L (21.0-31.0) 07/23/17 04:05 Anion Gap 4.0 (7.0-16.0) L 07/23/17 04:05 BUN 20 mg/dL (7-25) 07/23/17 04:05 Creatinine 1.4 mg/dL (0.7-1.3) H 07/23/17 04:05 Est GFR ( Amer) > 60.0 ml/min (>90) 07/23/17 04:05 Est GFR (Non-Af Amer) 56.1 ml/min 07/23/17 04:05 BUN/Creatinine Ratio 14.3 07/23/17 04:05 Glucose 116 mg/dL (70-105) H 07/23/17 04:05 POC Glucose 99 MG/DL (70 - 105) 07/15/17 13:48 Whole Bld Lactic Acid 1.10 mmol/L (0.60-1.99) 07/19/17 13:50 Calcium 13.1 mg/dL (8.6-10.3) H* 07/23/17 04:05 Total Bilirubin 0.7 mg/dL (0.3-1.0) 07/22/17 04:15 AST 34 U/L (13-39) 07/22/17 04:15 ALT 18 U/L (7-52) 07/22/17 04:15 Alkaline Phosphatase 155 U/L (34-104) H 07/22/17 04:15 Total Protein 8.0 gm/dL (6.0-8.3) 07/22/17 04:15 Albumin 2.1 gm/dL (4.2-5.5) L 07/22/17 04:15 Globulin 5.9 gm/dL 07/22/17 04:15 Albumin/Globulin Ratio 0.4 (1.0-1.8) L 07/22/17 04:15 Urine Source [place] 07/19/17 13:50 Urine Color YELLOW 07/19/17 13:50 Urine Clarity SLIGHTLY [place] (CLEAR) 07/19/17 13:50 Urine pH 7.0 (4.6 - 8.0) 07/19/17 13:50 Ur Specific [place] 1.015 (1.005-1.030) 07/19/17 13:50 Urine Protein 30 mg/dL (NEGATIVE) H 07/19/17 13:50 Urine Glucose (UA) 100 mg/dL (NEGATIVE) H 07/19/17 13:50 Urine Ketones NEGATIVE mg/dL (NEGATIVE) 07/19/17 13:50 Urine Blood SMALL (NEGATIVE) H 07/19/17 13:50 Urine Nitrate NEGATIVE (NEGATIVE) 07/19/17 13:50 Urine Bilirubin NEGATIVE (NEGATIVE) 07/19/17 13:50 Urine Urobilinogen 0.2 E.U./dL (0.2 - 1.0) 07/19/17 13:50 Ur Leukocyte Esterase NEGATIVE (NEGATIVE) 07/19/17 13:50 Urine RBC 2-5 /hpf (0-5) H 07/19/17 13:50 Urine WBC 0-2 /hpf (0-5) 07/19/17 13:50 Ur Epithelial Cells OCCASIONAL /lpf (FEW) 07/19/17 13:50 Urine Bacteria NONE SEEN /hpf (NONE SEEN) 07/19/17 13:50 Stool Leukocyte NO WBC SEEN 07/13/17 10:00 Vancomycin Trough 24.8 ug/mL (10-20) H 07/14/17 04:26 - Physical Exam Vitals and I&O: Vital Signs Temp 98.6 F 07/23/17 13:00 Pulse 94 07/23/17 13:15 Resp 19 07/23/17 13:00 BP 97/52 07/23/17 13:00 Pulse Ox 100 07/23/17 13:15 Intake & Output 07/22/17 07/23/17 07/23/17 18:59 06:59 18:59 Intake Total 411.25 240 Output Total 850 Balance 411.25 -610 Weight (lbs) 44.906 kg Intake: Intake, IV Amount 411.25 Colistimethate 100 mg In 100 Sodium Chloride 0.9% 100 ml @ 100 mls/hr IV Q12H [facility] Rx#:[id number] D5-0.45NS 1,000 ml @ 75 311.25 mls/hr IV .[id number] [facility] Rx #:[id number] Other 240 Output: Urine 850 Other: # Bowel Movements 1 Stool Characteristics Soft Soft Soft Brown Brown Brown Active Medications: Current Medications Acetaminophen (Tylenol 650mg/20.3ml Suspension) 640 mg GT Q4H PRN PRN Reason: Pain or Fever >101 Stop: 09/10/17 13:43 Last Admin: 07/23/17 02:15 Dose: 640 mg Albuterol Sulfate (Albuterol 2.5mg/3ml Neb Ud) 1.25 mg HHN Q6HRT MANDA Stop: 09/11/17 00:59 Last Admin: 07/23/17 13:14 Dose: 1.25 mg Artificial Tears (Artificial Tears Ophth Soln) 1 drop EACH EYE Q4HR [facility] Stop: 09/10/17 15:59 Last Admin: 07/23/17 11:43 Dose: 1 drop Ascorbic Acid (Vitamin C) 500 mg GT DAILY [facility] Stop: 09/10/17 14:59 Last Admin: 07/23/17 08:58 Dose: 500 mg Chlorhexidine Gluconate (Peridex) 15 ml MM 0800,1999 [facility] Stop: 09/10/17 19:59 Last Admin: 07/23/17 08:15 Dose: 15 ml Digoxin (Lanoxin) 0.125 mg GT MWF [facility] Stop: 09/10/17 14:59 Last Admin: 07/23/17 09:00 Dose: Not Given Diltiazem HCl (Cardizem) 30 mg PO Q6HR PRN PRN Reason: HR>120 Stop: 09/21/17 02:44 Last Admin: 07/23/17 02:56 Dose: 30 mg Folic Acid (Folate) 1 mg GT DAILY [facility] Stop: 09/10/17 14:59 Last Admin: 07/23/17 08:58 Dose: 1 mg Hydroxyzine HCl (Atarax) 25 mg GT TID MANDA PRN Reason: Protocol Stop: 09/12/17 16:59 Last Admin: 07/23/17 13:53 Dose: 25 mg Sodium Chloride (Nacl 0.9%) 1,000 mls @ 75 mls/hr IV .[id number] [facility] Stop: 09/21/17 07:08 Last Admin: 07/23/17 08:26 Dose: 75 mls/hr Ipratropium [place] (Atrovent Neb 0.5mg/2.5ml) 0.5 mg HHN Q6HRT [facility] Stop: 09/11/17 00:59 Last Admin: 07/23/17 13:14 Dose: 0.5 mg Metoclopramide HCl (Reglan) 5 mg GT DAILY [facility] Stop: 09/10/17 14:59 Last Admin: 07/23/17 09:02 Dose: 5 mg Miscellaneous (Vte Chemical Prophylaxis Screen/ Admission) 1 ea [facility] PRN PRN PRN Reason: PROTOCOL Stop: 09/10/17 19:00 Morphine Sulfate (Morphine) 15 mg GT BID [facility] Stop: 09/15/17 16:59 Last Admin: 07/23/17 09:00 Dose: 15 mg Morphine Sulfate (Morphine) 2 mg IV Q4HR PRN PRN Reason: Pain (Severe) Stop: 09/15/17 09:32 Last Admin: 07/19/17 17:44 Dose: 2 mg Multivitamins/Vitamin C (Theragran) 1 tab GT DAILY [facility] Stop: 09/10/17 14:59 Last Admin: 07/23/17 08:58 Dose: 1 tab Ondansetron HCl (Zofran Odt) 4 mg SL Q6H PRN PRN Reason: Nausea Stop: 09/10/17 13:43 Pantoprazole Sodium (Protonix) 40 mg GT BIDAC [facility] Stop: 09/10/17 16:29 Last Admin: 07/23/17 08:15 Dose: 40 mg Senna (Senna) 8.6 mg GT HS [facility] Stop: 09/10/17 20:59 Last Admin: 07/22/17 21:33 Dose: 8.6 mg Thiamine HCl (Vitamin B1) 100 mg GT DAILY [facility] Stop: 09/10/17 14:59 Last Admin: 07/23/17 08:58 Dose: 100 mg Zinc Sulfate (Zinc Sulfate) 220 mg GT DAILY [facility] Stop: 09/10/17 14:59 Last Admin: 07/23/17 08:58 Dose: 220 mg General: no acute distress, well developed, well nourished HEENT: atraumatic, normocephalic, PERRLA, EOMI, moist mucous membrane Neck: supple, tracheostomy, no thyromegaly Cardiovascular: S1S2, regular Lungs: clear to auscultation bilaterally, clear to percussion Abdomen: soft, no tender, no distended Extremities: no cyanosis, no clubbing, no edema Neurological: awake, alert - Procedures Procedures: Procedures Procedure Code Date RESPIRATORY VENTILATION, GREATER THAN 96 CONSECUTIVE HOURS [id number] 07/12/17 Infectious Disease Assmt/Plan - Assessment Assessment: Impression: 1. Diarrhea. stool for C diff : neg. 2. Pneumonia. MDRO pseudomonas. 3. Leukocytosis. 4. Cirrhosis. 5. Afib, currently NSR. 6. h/o alcohol abuse. 7. Protein calorie malnutrition. 8. decubitus, sacral. There is no sign of infection,. 9. left leg decubitus ulcer. - Plan Plan: Continue colistin. Wound care. Nutritional Asmnt/Malnutr-PDOC - Dietary Evaluation Malnutrition Findings (Please click <Entered> for more info): Nutritional Asmnt/Malnutrition Start: 07/13/17 14: 18 Text: Status: Complete Freq: Document 07/13/17 14:18 LCHENG (Rec: 07/13/17 14:25 [facility]-[email or web address]) Nutritional Asmnt/Malnutrition Patient General Information Nutritional Screening High Risk Consult Diagnosis PNA Pertinent Medical Hx/Surgical Hx PUD, GERD, respiratory failure , cirrhosis, anemia, dysphagia , a fib, PEG/GERD Subjective Information Consult received for ayaan < 12. Pt seen on vent via trach. Verified tube feeding running at 60ml/hr at this time. Spoke with RN, pt tolerated TF well. Pt had diarrhea from last night, c diff test ordered. Current Diet Order/ Nutrition Support FI[employer]ource HN 60ml/hr x 20hr Pertinent Medications vit C, D5-0.45ns, folate, reglan, theragran, protonix, piperacillin, senna, vit B1, vancomycin, Zinc Pertinent Labs 07/12 Na 130, K 4.3, Cl 96, BUN 17, Cr 0.6, Glucose 90, Alb 2 .2 Nutritional Hx/Data Height 1.63 m Height (Calculated Centimeters) 162.6 Current Weight (lbs) 44.452 kg Weight (Calculated Kilograms) 44.5 Weight (Calculated Grams) 58125.1 [place] Body Weight 130 Body Mass Index (BMI) 16.8 Weight Status Underweight GI Symptoms GI Symptoms Diarrhea Last BM 07/13 Difficult in: None Skin Integrity/Comment: open wound to buttocks, ulceration to right calf, bruise to biletarl upper and lower extremities, discoloration to sacrum Estimated Nutritional Goals Calories/Kcals/Kg 23-27 Kcals Calculated 9549-2705 Protein g/k-1.2 Protein Calculated 54-65 Fluid: ml 1242-1458ml (1ml/kcal) Nutritional Problem 1. Problem Problem increased nutrition needs ( protein) Etiology increased metabolic demand for wound healing Signs/Symptoms: open wound, ulceration Intervention/Recommendation Comments 1. Continue with current TF regimen. It provides 1400kcal, 65g protein, 972ml free water , meeting 100% of nutritional needs 2. Monitor TF rate, tolerance, wt weekly, skin integrity and labs 3. F/U as moderate risk in 3-5 days, 03/31-04/02 Expected Outcomes/Goals Expected Outcomes/Goals 1. Pt to meet at least 75% of nutritional needs via nutrition support with tolerance 2. Wt stability, skin to remain intact, labs to approach WNL.
--- NOTE | 2017-07-23 15:26 | Internal Medicine Prog Note ---
Internal Medicine Subjective - Subjective Service Date: 07/23/17 Patient seen and examined:: with staff Patient is:: awake Per staff patient has:: tolerating meds Internal Medicine Objective - Results Result Diagrams: 07/23/17 04:05 07/23/17 04:05 Recent Labs: Laboratory Last Values WBC 15.5 Th/cmm (4.8-10.8) H 07/23/17 04:05 RBC 2.67 Mil/cmm (4.30-5.70) L 07/23/17 04:05 Hgb 8.6 gm/dL (12-16) L 07/23/17 04:05 Hct 26.0 % (41.0-60) L 07/23/17 04:05 MCV 97.5 fl (80-99) 07/23/17 04:05 MCH 32.2 pg (26.0-30.0) H 07/23/17 04:05 MCHC Differential 33.1 pg (28.0-36.0) 07/23/17 04:05 RDW 19.8 % (11.5-20.0) 07/23/17 04:05 Plt Count 244 Th/cmm (150-400) D 07/23/17 04:05 MPV 8.4 fl 07/23/17 04:05 Neutrophils % 66.8 % (40.0-80.0) 07/23/17 04:05 Band Neutrophils % 6 % (0-10) 07/11/17 19:46 Lymphocytes % 9.3 % (20.0-50.0) L 07/23/17 04:05 Monocytes % 10.9 % (2.0-10.0) H 07/23/17 04:05 Eosinophils % 12.1 % (0.0-5.0) H 07/23/17 04:05 Basophils % 0.9 % (0.0-2.0) 07/23/17 04:05 Neutrophils (Manual) 73 % (40-80) 07/17/17 04:21 Lymphocytes 5 % (20-50) L 07/17/17 04:21 Monocytes 2 % (2-10) 07/17/17 04:21 Eosinophils 20 % (0-5) H 07/17/17 04:21 Basophils 0 % (0-3) 07/11/17 19:46 Platelet Estimate ADEQUATE (NORMAL) 07/17/17 04:21 Platelet Morphology NORMAL (NORMAL) 07/11/17 19:46 Anisocytosis 1+ 07/11/17 19:46 RBC Morph Micro Appear ABNORMAL (NORMAL) 07/11/17 19:46 Specimen Source ARTERIAL 07/12/17 06:00 Sample Site Right Radial 07/12/17 06:00 pH 7.45 (7.35-7.45) 07/12/17 06:00 pCO2 50.0 mmHg (35.0-45.0) H 07/12/17 06:00 pO2 100.0 mmHg (80.0-100.0) 07/12/17 06:00 HCO3 32.2 mEq/L (20.0-26.0) H 07/12/17 06:00 Base Excess 9.3 mEq/L (-3.0-3.0) H 07/12/17 06:00 O2 Saturation 98.0 % (92.0-100.0) 07/12/17 06:00 Jose Test Positive 07/12/17 06:00 Vent Rate 24 07/12/17 06:00 Inspired O2 40 07/12/17 06:00 Tidal Volume NA 07/12/17 06:00 PEEP 5 07/12/17 06:00 Pressure (ins/psv/peep) 25 07/12/17 06:00 Critical Value SC 07/12/17 06:00 Sodium 130 mEq/L (136-145) L 07/23/17 04:05 Potassium 3.0 mEq/L (3.5-5.1) L 07/23/17 04:05 Chloride 105 mEq/L (98-107) 07/23/17 04:05 Carbon Dioxide 24.0 mEq/L (21.0-31.0) 07/23/17 04:05 Anion Gap 4.0 (7.0-16.0) L 07/23/17 04:05 BUN 20 mg/dL (7-25) 07/23/17 04:05 Creatinine 1.4 mg/dL (0.7-1.3) H 07/23/17 04:05 Est GFR ( Amer) > 60.0 ml/min (>90) 07/23/17 04:05 Est GFR (Non-Af Amer) 56.1 ml/min 07/23/17 04:05 BUN/Creatinine Ratio 14.3 07/23/17 04:05 Glucose 116 mg/dL (70-105) H 07/23/17 04:05 POC Glucose 99 MG/DL (70 - 105) 07/15/17 13:48 Whole Bld Lactic Acid 1.10 mmol/L (0.60-1.99) 07/19/17 13:50 Calcium 13.1 mg/dL (8.6-10.3) H* 07/23/17 04:05 Total Bilirubin 0.7 mg/dL (0.3-1.0) 07/22/17 04:15 AST 34 U/L (13-39) 07/22/17 04:15 ALT 18 U/L (7-52) 07/22/17 04:15 Alkaline Phosphatase 155 U/L (34-104) H 07/22/17 04:15 Total Protein 8.0 gm/dL (6.0-8.3) 07/22/17 04:15 Albumin 2.1 gm/dL (4.2-5.5) L 07/22/17 04:15 Globulin 5.9 gm/dL 07/22/17 04:15 Albumin/Globulin Ratio 0.4 (1.0-1.8) L 07/22/17 04:15 Urine Source [place] 07/19/17 13:50 Urine Color YELLOW 07/19/17 13:50 Urine Clarity SLIGHTLY HAZY (CLEAR) 07/19/17 13:50 Urine pH 7.0 (4.6 - 8.0) 07/19/17 13:50 Ur Specific [place] 1.015 (1.005-1.030) 07/19/17 13:50 Urine Protein 30 mg/dL (NEGATIVE) H 07/19/17 13:50 Urine Glucose (UA) 100 mg/dL (NEGATIVE) H 07/19/17 13:50 Urine Ketones NEGATIVE mg/dL (NEGATIVE) 07/19/17 13:50 Urine Blood SMALL (NEGATIVE) H 07/19/17 13:50 Urine Nitrate NEGATIVE (NEGATIVE) 07/19/17 13:50 Urine Bilirubin NEGATIVE (NEGATIVE) 07/19/17 13:50 Urine Urobilinogen 0.2 E.U./dL (0.2 - 1.0) 07/19/17 13:50 Ur Leukocyte Esterase NEGATIVE (NEGATIVE) 07/19/17 13:50 Urine RBC 2-5 /hpf (0-5) H 07/19/17 13:50 Urine WBC 0-2 /hpf (0-5) 07/19/17 13:50 Ur Epithelial Cells OCCASIONAL /lpf (FEW) 07/19/17 13:50 Urine Bacteria NONE SEEN /hpf (NONE SEEN) 07/19/17 13:50 Stool Leukocyte NO WBC SEEN 07/13/17 10:00 Vancomycin Trough 24.8 ug/mL (10-20) H 07/14/17 04:26 - Physical Exam Vitals and I&O: Vital Signs Temp 98.6 F 07/23/17 13:00 Pulse 97 07/23/17 15:03 Resp 19 07/23/17 13:00 BP 97/52 07/23/17 13:00 Pulse Ox 100 07/23/17 15:03 Intake & Output 07/22/17 07/23/17 07/23/17 18:59 06:59 18:59 Intake Total 411.25 240 Output Total 850 Balance 411.25 -610 Weight (lbs) 99 lb Intake: Intake, IV Amount 411.25 Colistimethate 100 mg In 100 Sodium Chloride 0.9% 100 ml @ 100 mls/hr IV Q12H [facility] Rx#:[id number] D5-0.45NS 1,000 ml @ 75 311.25 mls/hr IV .[id number] [facility] Rx #:[id number] Other 240 Output: Urine 850 Other: # Bowel Movements 1 Stool Characteristics Soft Soft Soft Brown Brown Brown Weight Source Bedscale Active Medications: Current Medications Acetaminophen (Tylenol 650mg/20.3ml Suspension) 640 mg GT Q4H PRN PRN Reason: Pain or Fever >101 Stop: 09/10/17 13:43 Last Admin: 07/23/17 02:15 Dose: 640 mg Albuterol Sulfate (Albuterol 2.5mg/3ml Neb Ud) 1.25 mg HHN Q6HRT MANDA Stop: 09/11/17 00:59 Last Admin: 07/23/17 13:14 Dose: 1.25 mg Artificial Tears (Artificial Tears Ophth Soln) 1 drop EACH EYE Q4HR MANDA Stop: 09/10/17 15:59 Last Admin: 07/23/17 11:43 Dose: 1 drop Ascorbic Acid (Vitamin C) 500 mg GT DAILY [facility] Stop: 09/10/17 14:59 Last Admin: 07/23/17 08:58 Dose: 500 mg Chlorhexidine Gluconate (Peridex) 15 ml MM 0800,1999 [facility] Stop: 09/10/17 19:59 Last Admin: 07/23/17 08:15 Dose: 15 ml Digoxin (Lanoxin) 0.125 mg GT MWF [facility] Stop: 09/10/17 14:59 Last Admin: 07/23/17 09:00 Dose: Not Given Diltiazem HCl (Cardizem) 30 mg PO Q6HR PRN PRN Reason: HR>120 Stop: 09/21/17 02:44 Last Admin: 07/23/17 02:56 Dose: 30 mg Folic Acid (Folate) 1 mg GT DAILY [facility] Stop: 09/10/17 14:59 Last Admin: 07/23/17 08:58 Dose: 1 mg Hydroxyzine HCl (Atarax) 25 mg GT TID MANDA PRN Reason: Protocol Stop: 09/12/17 16:59 Last Admin: 07/23/17 13:53 Dose: 25 mg Sodium Chloride (Nacl 0.9%) 1,000 mls @ 75 mls/hr IV .[id number] [facility] Stop: 09/21/17 07:08 Last Admin: 07/23/17 08:26 Dose: 75 mls/hr Ipratropium [place] (Atrovent Neb 0.5mg/2.5ml) 0.5 mg HHN Q6HRT [facility] Stop: 09/11/17 00:59 Last Admin: 07/23/17 13:14 Dose: 0.5 mg Metoclopramide HCl (Reglan) 5 mg GT DAILY [facility] Stop: 09/10/17 14:59 Last Admin: 07/23/17 09:02 Dose: 5 mg Miscellaneous (Vte Chemical Prophylaxis Screen/ Admission) 1 ea MC PRN PRN PRN Reason: PROTOCOL Stop: 09/10/17 19:00 Morphine Sulfate (Morphine) 15 mg GT BID [facility] Stop: 09/15/17 16:59 Last Admin: 07/23/17 09:00 Dose: 15 mg Morphine Sulfate (Morphine) 2 mg IV Q4HR PRN PRN Reason: Pain (Severe) Stop: 09/15/17 09:32 Last Admin: 07/19/17 17:44 Dose: 2 mg Multivitamins/Vitamin C (Theragran) 1 tab GT DAILY [facility] Stop: 09/10/17 14:59 Last Admin: 07/23/17 08:58 Dose: 1 tab Ondansetron HCl (Zofran Odt) 4 mg SL Q6H PRN PRN Reason: Nausea Stop: 09/10/17 13:43 Pantoprazole Sodium (Protonix) 40 mg GT BIDAC MANDA Stop: 09/10/17 16:29 Last Admin: 07/23/17 08:15 Dose: 40 mg Senna (Senna) 8.6 mg GT HS MANDA Stop: 09/10/17 20:59 Last Admin: 07/22/17 21:33 Dose: 8.6 mg Thiamine HCl (Vitamin B1) 100 mg GT DAILY [facility] Stop: 09/10/17 14:59 Last Admin: 07/23/17 08:58 Dose: 100 mg Zinc Sulfate (Zinc Sulfate) 220 mg GT DAILY [facility] Stop: 09/10/17 14:59 Last Admin: 07/23/17 08:58 Dose: 220 mg - Procedures Procedures: Procedures Procedure Code Date RESPIRATORY VENTILATION, GREATER THAN 96 CONSECUTIVE HOURS [id number] 07/12/17 Internal Medicine Assmt/Plan - Assessment Assessment: Pneumonia Leukocytosis Diarrhea hx cirrhosis Protein calorie malnutrition sacral ulcer left leg ulcer - Plan Plan: icu monitoring follow up labs in am continue current plan of care Nutritional Asmnt/Malnutr-PDOC - Dietary Evaluation Malnutrition Findings (Please click <Entered> for more info): Nutritional Asmnt/Malnutrition Start: 07/13/17 14: 18 Text: Status: Complete Freq: Document 07/13/17 14:18 LCHENG (Rec: 07/13/17 14:25 LCSUSANG [email or web address]) Nutritional Asmnt/Malnutrition Patient General Information Nutritional Screening High Risk Consult Diagnosis PNA Pertinent Medical Hx/Surgical Hx PUD, GERD, respiratory failure , cirrhosis, anemia, dysphagia , a fib, PEG/GERD Subjective Information Consult received for ayaan < 12. Pt seen on vent via trach. Verified tube feeding running at 60ml/hr at this time. Spoke with RN, pt tolerated TF well. Pt had diarrhea from last night, c diff test ordered. Current Diet Order/ Nutrition Support [employer] HN 60ml/hr x 20hr Pertinent Medications vit C, D5-0.45ns, folate, reglan, theragran, protonix, piperacillin, senna, vit B1, vancomycin, Zinc Pertinent Labs 07/12 Na 130, K 4.3, Cl 96, BUN 17, Cr 0.6, Glucose 90, Alb 2 .2 Nutritional Hx/Data Height 5 ft 4 in Height (Calculated Centimeters) 162.6 Current Weight (lbs) 98 lb Weight (Calculated Kilograms) 44.5 Weight (Calculated Grams) 35409.1 Ozan Body Weight 130 Body Mass Index (BMI) 16.8 Weight Status Underweight GI Symptoms GI Symptoms Diarrhea Last BM 07/13 Difficult in: None Skin Integrity/Comment: open wound to buttocks, ulceration to right calf, bruise to biletarl upper and lower extremities, discoloration to sacrum Estimated Nutritional Goals Calories/Kcals/Kg 23-27 Kcals Calculated 3490-2060 Protein g/k-1.2 Protein Calculated 54-65 Fluid: ml 1242-1458ml (1ml/kcal) Nutritional Problem 1. Problem Problem increased nutrition needs ( protein) Etiology increased metabolic demand for wound healing Signs/Symptoms: open wound, ulceration Intervention/Recommendation Comments 1. Continue with current TF regimen. It provides 1400kcal, 65g protein, 972ml free water , meeting 100% of nutritional needs 2. Monitor TF rate, tolerance, wt weekly, skin integrity and labs 3. F/U as moderate risk in 3-5 days, 03/31-04/02 Expected Outcomes/Goals Expected Outcomes/Goals 1. Pt to meet at least 75% of nutritional needs via nutrition support with tolerance 2. Wt stability, skin to remain intact, labs to approach WNL.
[2017-07-23] MEDS: Morphine Sulfate 4 mg/mL 1mL Syr IV PRN (18:16)
[2017-07-24] MEDS: Polyvinyl Alcohol Ophth Soln 15 mL Bottle EACH EYE SCH
== END 2017-07-24 00:25 | DRG 720 ==
LOC: ER 19:04 → ICU 07-12 12:05 → TELE 07-23 16:10 → ICU 07-23 16:12
PROVIDERS: ADMIT Internal Medicine; ATTEND Internal Medicine
PROC: 5A1955Z Respiratory Ventilation, Greater than 96 Consecutive Hours (ICD-10-PCS; principal; 2017-07-12)
DX: A41.9 Sepsis, unspecified organism (principal); J96.90 Respiratory failure, unspecified, unspecified whether with hypoxia or hypercapnia; Z99.11 Dependence on respirator [ventilator] status; J90 Pleural effusion, not elsewhere classified; E46 Unspecified protein-calorie malnutrition; Z93.0 Tracheostomy status; J15.1 Pneumonia due to Pseudomonas; L89.159 Pressure ulcer of sacral region, unspecified stage; K74.60 Unspecified cirrhosis of liver; I48.91 Unspecified atrial fibrillation; R19.7 Diarrhea, unspecified; L89.899 Pressure ulcer of other site, unspecified stage; D64.9 Anemia, unspecified; K21.9 Gastro-esophageal reflux disease without esophagitis; Z93.1 Gastrostomy status; Z68.20 Body mass index [BMI] 20.0-20.9, adult
CPT/HCPCS: 36415-UA; 36600-90; 71045-TC; 80048-TC; 80053-TC; 80202-TC; 81001-TC; 82803-TC; 82948-90; 83605; 85007-TC; 85025-TC; 85027-TC; 87046-90; 87070; 87230-TC; 89055-TC; 90779; 93005; 94002; 94003; 94640; J0770; J1644; J2543; J3370; J3480; J7030; J7613; Q0162; Z7610

== ENCOUNTER 2017-10-31 22:23 | Emergency (ER) | payer MEDICAID ==
--- NOTE | 2017-10-31 22:43 | ED Physician Chart ---
ED Chief Complaint/HPI - Patient Information Date Seen:: 10/31/17 Time Seen:: 22:28 Chief Complaint:: NEW ONSET SEIZURE History of Present Illness:: 57 YR OLD MALE VENT DEPENDENT G-TUBE TRACH LIVER CIRRHOSIS HERE [facility] FOR NEW ONSET SEIZURE Allergies:: Allergies Allergy/AdvReac Type Severity Reaction Status Date / Time No Known Allergies Allergy Verified 07/11/17 19:32 Historian:: EMS, Medical Records ED Review of Systems - Review of Systems General/Constitutional: No fever (PT UNABLE TO GIVE ROS ) ED Past Medical History - Past Medical History Past Medical History: Other (CIRRHOSIS VENT DEPENDENCE) Family Medical History - Family Member Mother History Unknown: Yes ED Physical Exam - Physical Examination Other Gen/Cons comments:: pt with eyes closed no response to calling name or deep sternal rub Head: Atraumatic Other Skin comments:: skin scabs arms legs Other Neck comments:: unable toassess for tenderness Cardio Vascular: RRR Other GI comments:: CIRRHOSIS Other:: pt unable to asses for tenderness ED Assessment - Assessment General Assessment: VENT DEPENDENCE NEW SEIZURE FOR EVALUATION PER DR ELLINGTON ED Septic Shock - . Is Septic Shock (SBP<90, OR Lactate>4 mmol\L) present?: No ED Reassessment (Disposition) - Diagnosis Diagnosis:: VENT DEPENDENCE SEIZURE - Patient Disposition Discharge/Transfer:: Acute Care w/in this hosp
[2017-10-31 23:20] LABS: ALB/GLOB RATIO 0.6 (1.0-1.8); ALKALINE PHOSPHATASE 131 U/L (34-104); ANION GAP 6.8 (7.0-16.0); BILIRUBIN,TOTAL 0.5 mg/dL (0.3-1.0); BUN - UREA NITROGEN 18 mg/dL (7-25); CALCIUM SERUM 9.6 mg/dL (8.6-10.3); CARBON DIOXIDE 33.3 mEq/L (21.0-31.0); CHLORIDE 95 mEq/L (98-107); CREATININE - SERUM 0.4 mg/dL (0.7-1.3); GFR AFRICAN-AMERICAN > 60.0 ml/min (>90); GFR NON AFRICAN-AMERICAN > 60.0 ml/min; GLUCOSE 121 mg/dL (70-105); POTASSIUM SERUM 4.1 mEq/L (3.5-5.1); SGOT 82 U/L (13-39); SGPT/ALT 47 U/L (7-52); SODIUM SERUM 131 mEq/L (136-145)
[2017-10-31 23:36] LABS: % BASOPHILS 0.5 % (0.0-2.0); % EOSINOPHILS 3.3 % (0.0-5.0); % LYMPHOCYTES 18.3 % (20.0-50.0); % MONOCYTES 5.9 % (2.0-10.0); BASOPHILE ABSOLUTE 0.1 Th/cumm (0-0.2); EOSINOPHILE ABSOLUTE 0.5 Th/cmm (0.1-0.4); HEMATOCRIT 38.7 % (41.0-60); HEMOGLOBIN 12.8 gm/dL (12-16); LYMPHOCYTE ABSOLUTE 2.7 Th/cmm (1.5-3.0); MEAN CORPUSCULAR HEMOGLOBIN 31.2 pg (26.0-30.0); MEAN CORPUSCULAR HGB CONC 33.1 pg (28.0-36.0); MEAN PLATELET VOLUME 8.4 fl; MONOCYTE ABSOLUTE 0.9 Th/cmm (0.3-1.0); NEUTROPHILE ABSOLUTE 10.6 Th/cmm (1.8-8.0); PLATELET COUNT 267 Th/cmm (150-400); RED BLOOD COUNT 4.12 Mil/cmm (4.30-5.70); RED CELL DISTRIBUTION WIDTH 13.9 % (11.5-20.0); WHITE BLOOD COUNT 14.8 Th/cmm (4.8-10.8)
[2017-10-31] MEDS ORDERED: Sodium Chloride 0.9% 1,000 ML IV ONE (23:51)
[2017-10-31] MEDS ORDERED: cefTRIAXone 1 GM in Sodium Chloride 0.9% 50 ML IV ONE (23:53)
--- NOTE | 2017-11-01 08:27 | Diagnostic Imaging Report ---
CHEST X-RAY: AP view INDICATION: Shortness of breath COMPARISON: 07/20/2017 FINDINGS: Tracheostomy tube is stable. Diffuse increased interstitial lung markings are noted. Small left effusion is noted. Heart size is normal. Degenerative changes of the spine are noted. Postsurgical changes of the upper abdomen are noted. A gastrostomy feeding tube is noted. IMPRESSION: Diffuse increased interstitial lung markings. Findings may be due to interstitial infiltrates or mild degree of congestion. There are likely superimposed chronic lung changes. Please correlate with clinical findings. If indicated CT chest with provide additional detail and assessment.
--- NOTE | 2017-11-01 08:43 | Diagnostic Imaging Report ---
Head CT without intravenous contrast Indication: New onset seizure Comparison: None Technique: Axial images were obtained from the vertex to the skull base without IV contrast. Coronal reconstructions were made. Total DLP: 698, CTDI38.3 FINDINGS: Images of the brain obtained without contrast demonstrate no evidence of acute hemorrhage. There is focal asymmetric lucency seen along the left pontine the left midbrain region. Low attenuation changes are seen throughout the left high frontal and parietal lobe regions. These may be due to watershed infarcts. No significant mass effect. No midline shift. Additional low-attenuation changes are seen along the right frontal lobe which may be due to old infarct. The ventricles and basal cisterns are patent no mass effect or midline shift. Nonspecific 2 mm fat density seen within the left parietal occipital lobe region. Sinus disease is seen with partial opacification was sinus. No evidence of skull fracture or focal soft tissue swelling. Old right zygomatic arch fracture is noted. Note exam was limited due to motion. IMPRESSION: No evidence of acute intracranial hemorrhage. Asymmetric low density seen along left pontine and left midbrain region and throughout the high left cerebral hemisphere. Findings suggest recent ischemic infarcts. The high left cerebral infarcts may be due to watershed infarct. No significant mass effect or midline shift. Recommend clinical correlation further assessment MRI examination. Tiny fat density within the left parieto-occipital lobe nonspecific. A fat embolus cannot be completely excluded. Again short-term follow-up MRI may be obtained. Probable old small infarct in the right frontal lobe.
== END 2017-11-01 03:15 | disposition short-term general hospital (02) ==
LOC: ER 22:23
DX: G40.89 Other seizures (principal)
CPT/HCPCS: 99285; 96365; 94799; 93005; 71045; 70450; 83880; 36415; 83605; 85025; 80053; 87081; 87040 ×2; J0696 ×2; 94002; J7030; Z7610